=== PATIENT | female | born 1975 | race Caucasian/White ===

== ENCOUNTER 2022-06-21 11:06 | Outpatient (REF) | payer OTHER, SELFPAY ==
--- NOTE | ~2022-06-21 | XR_ITS ---
EXAMINATION: CERVICAL SPINE, RIGHT FOOT, LEFT SHOULDER, AND RIGHT SHOULDER CLINICAL INFORMATION: Osteoarthritis and pain. COMPARISON: None. TECHNIQUE: Three-view right foot, 4 view of each shoulder, and 8 view cervical spine. FINDINGS: RIGHT FOOT: There is no evidence of acute fracture or dislocation of the right foot. Joint spaces are maintained. There is mild sclerosis and spurring seen without joint space narrowing involving the 1st metatarsophalangeal joint. There is a prominent plantar calcaneal spur and small Achilles spur. LEFT SHOULDER: There is no evidence of acute fracture or dislocation of the left shoulder. Glenohumeral joint appears unremarkable. There is mild degenerative change of the acromioclavicular joint. No widening of the coracoclavicular space is seen. Bone island is noted within the left humeral head. RIGHT SHOULDER: There is no evidence of acute fracture or dislocation of the right shoulder. No calcific tendinitis. Glenohumeral joint appears unremarkable. No widening of the coracoclavicular space. There is mild spurring about the acromioclavicular joint. CERVICAL SPINE: The bony texture and alignment of the cervical spine is satisfactory. No abnormal prevertebral soft tissue swelling is seen. No instability on flexion-extension views is noted. Disc spaces are maintained. Bony neural foramina unremarkable. On lateral view a linear metallic density is seen overlying the nose. XR/XR foot RT min 3V IMPRESSION: No significant bony abnormality identified of the right foot, left shoulder, right shoulder or cervical spine.
--- NOTE | ~2022-06-21 | XR_ITS ---
EXAMINATION: CERVICAL SPINE, RIGHT FOOT, LEFT SHOULDER, AND RIGHT SHOULDER CLINICAL INFORMATION: Osteoarthritis and pain. COMPARISON: None. TECHNIQUE: Three-view right foot, 4 view of each shoulder, and 8 view cervical spine. FINDINGS: RIGHT FOOT: There is no evidence of acute fracture or dislocation of the right foot. Joint spaces are maintained. There is mild sclerosis and spurring seen without joint space narrowing involving the 1st metatarsophalangeal joint. There is a prominent plantar calcaneal spur and small Achilles spur. LEFT SHOULDER: There is no evidence of acute fracture or dislocation of the left shoulder. Glenohumeral joint appears unremarkable. There is mild degenerative change of the acromioclavicular joint. No widening of the coracoclavicular space is seen. Bone island is noted within the left humeral head. RIGHT SHOULDER: There is no evidence of acute fracture or dislocation of the right shoulder. No calcific tendinitis. Glenohumeral joint appears unremarkable. No widening of the coracoclavicular space. There is mild spurring about the acromioclavicular joint. CERVICAL SPINE: The bony texture and alignment of the cervical spine is satisfactory. No abnormal prevertebral soft tissue swelling is seen. No instability on flexion-extension views is noted. Disc spaces are maintained. Bony neural foramina unremarkable. On lateral view a linear metallic density is seen overlying the nose. XR/XR shoulder LT min 2V IMPRESSION: No significant bony abnormality identified of the right foot, left shoulder, right shoulder or cervical spine.
--- NOTE | ~2022-06-21 | XR_ITS ---
EXAMINATION: CERVICAL SPINE, RIGHT FOOT, LEFT SHOULDER, AND RIGHT SHOULDER CLINICAL INFORMATION: Osteoarthritis and pain. COMPARISON: None. TECHNIQUE: Three-view right foot, 4 view of each shoulder, and 8 view cervical spine. FINDINGS: RIGHT FOOT: There is no evidence of acute fracture or dislocation of the right foot. Joint spaces are maintained. There is mild sclerosis and spurring seen without joint space narrowing involving the 1st metatarsophalangeal joint. There is a prominent plantar calcaneal spur and small Achilles spur. LEFT SHOULDER: There is no evidence of acute fracture or dislocation of the left shoulder. Glenohumeral joint appears unremarkable. There is mild degenerative change of the acromioclavicular joint. No widening of the coracoclavicular space is seen. Bone island is noted within the left humeral head. RIGHT SHOULDER: There is no evidence of acute fracture or dislocation of the right shoulder. No calcific tendinitis. Glenohumeral joint appears unremarkable. No widening of the coracoclavicular space. There is mild spurring about the acromioclavicular joint. CERVICAL SPINE: The bony texture and alignment of the cervical spine is satisfactory. No abnormal prevertebral soft tissue swelling is seen. No instability on flexion-extension views is noted. Disc spaces are maintained. Bony neural foramina unremarkable. On lateral view a linear metallic density is seen overlying the nose. XR/XR shoulder RT min 2V IMPRESSION: No significant bony abnormality identified of the right foot, left shoulder, right shoulder or cervical spine.
--- NOTE | ~2022-06-21 | XR_ITS ---
EXAMINATION: CERVICAL SPINE, RIGHT FOOT, LEFT SHOULDER, AND RIGHT SHOULDER CLINICAL INFORMATION: Osteoarthritis and pain. COMPARISON: None. TECHNIQUE: Three-view right foot, 4 view of each shoulder, and 8 view cervical spine. FINDINGS: RIGHT FOOT: There is no evidence of acute fracture or dislocation of the right foot. Joint spaces are maintained. There is mild sclerosis and spurring seen without joint space narrowing involving the 1st metatarsophalangeal joint. There is a prominent plantar calcaneal spur and small Achilles spur. LEFT SHOULDER: There is no evidence of acute fracture or dislocation of the left shoulder. Glenohumeral joint appears unremarkable. There is mild degenerative change of the acromioclavicular joint. No widening of the coracoclavicular space is seen. Bone island is noted within the left humeral head. RIGHT SHOULDER: There is no evidence of acute fracture or dislocation of the right shoulder. No calcific tendinitis. Glenohumeral joint appears unremarkable. No widening of the coracoclavicular space. There is mild spurring about the acromioclavicular joint. CERVICAL SPINE: The bony texture and alignment of the cervical spine is satisfactory. No abnormal prevertebral soft tissue swelling is seen. No instability on flexion-extension views is noted. Disc spaces are maintained. Bony neural foramina unremarkable. On lateral view a linear metallic density is seen overlying the nose. XR/XR cervical spine min 6V IMPRESSION: No significant bony abnormality identified of the right foot, left shoulder, right shoulder or cervical spine.
[2022-06-21 11:42] LABS: MANUAL DIFF FLAG NO
[2022-06-21 11:55] LABS: Basophils Absolute Auto 0.1 X10*3/uL (0.0-0.2); Basophils Percent Auto 0.9 % (0-2); Eosinophils Absolute Auto 0.1 X10*3/uL (0.0-0.4); Eosinophils Percent Auto 1.1 % (0-4); Hematocrit 42.1 % (37.0-47.0); Hemoglobin 14.3 g/dl (12.0-16.0); Imm Gran Abs Auto 0.03 X10*3/uL (0.00-0.03); Imm Gran Pct Auto 0.3 % (0.0-0.4); Lymphocytes Percent Auto 20.9 % (20-40); Mean Corpuscular Hemoglobin 28.4 pg (27.0-33.0); Mean Corpuscular Volume 83.7 fL (80.0-98.0); Mean Platelet Volume 10.6 fL (9.4-12.3); Monocytes Absolute Auto 0.6 X10*3/uL (0.1-1.2); Monocytes Percent Auto 6.2 % (2-11); Neutrophils Absolute Auto 6.7 x10*3/uL (2.0-8.3); Neutrophils Percent Auto 70.6 % (45-73); Platelet Count 312 X10*3/uL (160-400); Red Blood Count 5.03 X10*6/uL (4.20-5.50); Red Cell Distribution Width 12.7 % (11.0-16.0); White Blood Count 9.5 X10*3/uL (4.8-10.8)
[2022-06-21 12:05] LABS: Appearance Urine Clear; Color Urine Yellow; Glucose Urine UA Negative (Negative); Leukocyte Esterase Urine Negative (Negative); Nitrite Urine Negative (Negative); PH 6.5 (5.0-9.0); Urine Blood Negative (Negative); Urine Ketones Negative (Negative); Urine Protein Negative (Neg-Trace)
[2022-06-21 12:06] LABS: Estimated Average Glucose 103 mg/dL; Hemoglobin A1c % 5.2 %
[2022-06-21 12:07] LABS: Bacteria Urine None Seen (None Seen); Hyaline Casts Urine 0-2 /LPF (0-2); Squamous Epithelial Cell Urine 0-2 /HPF (0-2); WBC Urine 0-5 /HPF (0-5)
[2022-06-21 12:24] LABS: Alanine Aminotransferase 32 U/L (0-31); Albumin Level 4.4 g/dL (3.5-5.0); Alkaline Phosphatase 70 U/L (39-117); Anion Gap 15 (12-20); Aspartate Amino Transferase 20 U/L (5-31); Bilirubin Total 0.7 mg/dL (0.0-1.0); Blood Urea Nitrogen 7 mg/dL (9-16); C Reactive Protein 0.71 mg/dL (< or = 0.50); Calcium 9.2 mg/dL (8.4-10.2); Carbon Dioxide 24 mmol/L (22-29); Chloride 105 mmol/L (96-108); Estimated Glomerular Filt Rate > 60; Glucose Random 100 mg/dL (60-115); Lactate Dehydrogenase 212 U/L (122-220); Potassium 4.1 mmol/L (3.3-5.1); Sodium 140 mmol/L (135-145); Uric Acid 4.9 mg/dL (2.4-5.7)
[2022-06-21 12:33] LABS: Rheumatoid Factor < 15.0 IU/mL (<15.0)
[2022-06-21 12:39] LABS: Erythrocyte Sedimentation Rate 9 MM/HR (0-20)
[2022-06-21 12:48] LABS: HBS Num1 1.32 mIU/mL (0-7.99); HBc Num1 0.08 S/CO (0.00-0.79); HIV AB/AG Nonreactive (Nonreactive); Hepatitis A Antibody IgM 0.16 Index (0-0.79); Hepatitis B Core Antibody Nonreactive (Nonreactive); Hepatitis B Surface Antigen Negative (Negative); ~Hepatitis A Antibody IgM Nonreactive (Nonreactive); ~Hepatitis B Surface Antibody NONREACTIVE (Nonreactive); ~Hepatitis C Antibody Nonreactive (Nonreactive)
[2022-06-21 12:49] LABS: Thyroid Stimulating Hormone 0.68 uIU/mL (0.32-4.0)
[2022-06-21 13:06] LABS: Protein/Creatinine Ratio, Ur 0.07 (<0.2); Total Protein Urine Random 10 mg/dL (<12)
[2022-06-24 12:57] LABS: Cyclic Citrullinated Peptide <16 UNITS
[2022-06-24 13:42] LABS: Thyroid Peroxidase Antibodies 1 IU/mL (<9)
[2022-06-24 14:51] LABS: Anti-Centromere B Antibodies <1.0 NEG AI (<1.0 NEG)
[2022-06-24 16:36] LABS: Complement C3 165 mg/dL (83-193)
[2022-06-25 01:57] LABS: Lyme Abs Screen <0.90 index
[2022-06-25 08:37] LABS: Thyroglobulin Antibodies <1 IU/mL (< or = 1)
[2022-06-25 12:06] LABS: Anti Nuclear Antibody Screen NEGATIVE (NEGATIVE)
[2022-06-25 13:32] LABS: Anti DNA DS Antibody 1 IU/mL; Antibody to SS-A Antigen <1.0 NEG AI (<1.0 NEG); Antibody to SS-B Antigen <1.0 NEG AI (<1.0 NEG); SM/Ribonucleoprotein Ab <1.0 NEG AI (<1.0 NEG); Scleroderma 70 Antibody <1.0 NEG AI (<1.0 NEG); Smith Protein <1.0 NEG AI (<1.0 NEG)
[2022-06-25 23:21] LABS: Prot Elec - Albumin 4.1 g/dL (3.8-4.8); Prot Elec - Alpha1 0.3 g/dL (0.2-0.3); Prot Elec - Alpha2 0.7 g/dL (0.5-0.9); Prot Elec - Beta 1 0.6 g/dL (0.4-0.6); Prot Elec - Beta 2 0.4 g/dL (0.2-0.5); Prot Elec - Gamma 0.9 g/dL (0.8-1.7); Prot Elec - Total Protein 6.9 g/dL (6.1-8.1)
[2022-06-26 13:07] LABS: IgA 324 mg/dL (47-310); IgG 777 mg/dL (600-1640); IgM 101 mg/dL (50-300)
[2022-06-26 15:48] LABS: Beta-2 Glycoprotein IgA <2.0 U/mL (<20.0); Beta-2 Glycoprotein IgG <2.0 U/mL (<20.0); Beta-2 Glycoprotein IgM 6.2 U/mL (<20.0)
[2022-06-27 05:47] LABS: Aldolase 5.9 U/L (<=8.1)
[2022-06-27 06:47] LABS: PTT (LAC) Screen 38 sec (<=40)
[2022-06-29 12:46] LABS: Cardiolipin IgG Ab <2.0 GPL-U/mL; Cardiolipin IgM Ab 5.2 MPL-U/mL
== END 2022-06-21 11:07 | disposition home or self-care (01) ==
LOC: HO.LAB 11:06
PROVIDERS: PCP Pediatrics; Visit Provider Student in an Organized Health Care Education/Training Program
DX: Z11.59 Encounter for screening for other viral diseases (principal); Z11.4 Encounter for screening for human immunodeficiency virus [HIV]; R76.8 Other specified abnormal immunological findings in serum; E88.81 Metabolic syndrome and other insulin resistance; M54.2 Cervicalgia; M19.90 Unspecified osteoarthritis, unspecified site; M25.511 Pain in right shoulder; M25.512 Pain in left shoulder; M79.671 Pain in right foot
CPT/HCPCS: 36415; 72052; 73030; 73630; 80053; 81001; 82085; 82550; 82784; 83036; 83615; 84156; 84165; 84443; 84550; 85025; 85597; 85613; 85652; 85730; 86038; 86039; 86140; 86146; 86147; 86160; 86200; 86225; 86235; 86334; 86376; 86431; 86617; 86618; 86704; 86706; 86709; 86800; 86803; 87340; 87389

== ENCOUNTER 2022-07-24 10:56 | Outpatient (REF) | payer OTHER, SELFPAY ==
[2022-07-27 00:36] LABS: TS Negative Control Passed; TS Panel A 0; TS Panel B 0; TS Positive Control Passed; TSpotTB Negative (Negative)
== END 2022-07-24 10:57 | disposition home or self-care (01) ==
LOC: HO.10HDL 10:56
PROVIDERS: Visit Provider Student in an Organized Health Care Education/Training Program
DX: Z11.7 Encounter for testing for latent tuberculosis infection (principal)
CPT/HCPCS: 36415; 86481

== ENCOUNTER 2022-07-25 11:08 | Outpatient (REF) | payer OTHER, SELFPAY ==
--- NOTE | ~2022-07-25 | XR_ITS ---
EXAMINATION: BILATERAL HAND AND WRIST X-RAYS CLINICAL INFORMATION: Rheumatoid arthritis COMPARISON: None TECHNIQUE: 4 views of both hands and wrists FINDINGS: Left: Bone alignment is normal. No fracture or dislocation. Sclerotic density in the scaphoid bone probably representing a bone island. Normal joint spaces. Normal soft tissues. Right: Bone alignment is normal. No fracture or dislocation. Normal joint spaces. Normal soft tissues. XR/XR hand wrist RT IMPRESSION: No evidence of arthritis. Probable bone island in the left scaphoid bone.
--- NOTE | ~2022-07-25 | XR_ITS ---
EXAMINATION: BILATERAL KNEE X-RAY CLINICAL INFORMATION: Rheumatoid arthritis COMPARISON: None TECHNIQUE: 4 views of each knee FINDINGS: Right: Bone alignment is normal. No fracture or dislocation. Normal joint spaces. No joint effusion. Left: Bone alignment is normal. No fracture or dislocation. Cortical thickening and increased sclerosis of the tibial tibial tuberosity at the patellar tendon insertion probably related to old [place]-Schlatter's disease. Normal joint spaces. No joint effusion. XR/XR knee standing BI IMPRESSION: Normal right knee. Probable old [place]-Schlatter's disease of the left knee.
--- NOTE | ~2022-07-25 | XR_ITS ---
EXAMINATION: BILATERAL HAND AND WRIST X-RAYS CLINICAL INFORMATION: Rheumatoid arthritis COMPARISON: None TECHNIQUE: 4 views of both hands and wrists FINDINGS: Left: Bone alignment is normal. No fracture or dislocation. Sclerotic density in the scaphoid bone probably representing a bone island. Normal joint spaces. Normal soft tissues. Right: Bone alignment is normal. No fracture or dislocation. Normal joint spaces. Normal soft tissues. XR/XR hand wrist LT IMPRESSION: No evidence of arthritis. Probable bone island in the left scaphoid bone.
--- NOTE | ~2022-07-25 | XR_ITS ---
EXAMINATION: BILATERAL KNEE X-RAY CLINICAL INFORMATION: Rheumatoid arthritis COMPARISON: None TECHNIQUE: 4 views of each knee FINDINGS: Right: Bone alignment is normal. No fracture or dislocation. Normal joint spaces. No joint effusion. Left: Bone alignment is normal. No fracture or dislocation. Cortical thickening and increased sclerosis of the tibial tibial tuberosity at the patellar tendon insertion probably related to old [place]-Schlatter's disease. Normal joint spaces. No joint effusion. XR/XR knee RT 3V IMPRESSION: Normal right knee. Probable old [place]-Schlatter's disease of the left knee.
--- NOTE | ~2022-07-25 | XR_ITS ---
EXAMINATION: BILATERAL KNEE X-RAY CLINICAL INFORMATION: Rheumatoid arthritis COMPARISON: None TECHNIQUE: 4 views of each knee FINDINGS: Right: Bone alignment is normal. No fracture or dislocation. Normal joint spaces. No joint effusion. Left: Bone alignment is normal. No fracture or dislocation. Cortical thickening and increased sclerosis of the tibial tibial tuberosity at the patellar tendon insertion probably related to old [place]-Schlatter's disease. Normal joint spaces. No joint effusion. XR/XR knee LT 3V IMPRESSION: Normal right knee. Probable old [place]-Schlatter's disease of the left knee.
== END 2022-07-25 11:09 | disposition home or self-care (01) ==
LOC: HO.XRAY 11:08
PROVIDERS: PCP Pediatrics; Visit Provider Student in an Organized Health Care Education/Training Program
DX: M06.9 Rheumatoid arthritis, unspecified (principal)
CPT/HCPCS: 73110; 73130; 73562; 73564; 73565

== ENCOUNTER → 2022-09-06 09:30 | Outpatient (BNVA) | payer OTHER, SELFPAY | PROVIDERS: PCP Pediatrics; Visit Provider Internal Medicine | DX: M50.30 Other cervical disc degeneration, unspecified cervical region (principal); M19.90 Unspecified osteoarthritis, unspecified site ==

== ENCOUNTER → 2022-09-10 14:49 | Outpatient (BNVA) | payer OTHER, SELFPAY | PROVIDERS: PCP Pediatrics; Visit Provider Student in an Organized Health Care Education/Training Program | DX: Z13.89 Encounter for screening for other disorder (principal) ==

== ENCOUNTER 2022-11-22 10:00 | Outpatient (RCR) | payer OTHER, SELFPAY ==
[2022-10-07 10:01] VITALS: BP 135/75; PULSE 90
--- NOTE | 2022-10-07 16:20 | MHC.PT.EP ---
[facility] [place] [facility] [place] [facility] [place] [facility] [address] Xochilt Wright [address] [phone] F: [phone] F: [phone] F: [phone] F: [phone] Physical Therapy Plan of Care Date of Evaluation: Date of Surgery: Diagnosis: Cervical disc degeneration. Assessment: Pt is a 47 y/o LHD female with RA referred to PT for eval and treat of cervical disc degeneration resulting in decreased tolerance for driving, reading, turning and extending her head, as well as disturbed sleep secondary to DDD process, decreased cervical ROM and strength, L shoulder pain, decreased posture, increased cervical accessory tissue tension, and pain. Pt is deemed an appropriate candidate to receive skilled PT services to address their physical impairments in order to improve their functional ability. Frequency and Duration: The patient will be seen 2 x / wk x 5 wks. Short Term Goals: Initiate HEP. Improve baseline pain to < 5/10; initial: 6/10. Humane Agent Goals: I with home program. Pt will report only slight neck pain while driving; initial: moderate pain. Pt will report < 1 hour of disturbed sleep d/t cervical pain; initial: 2-3 hours disturbed. Pt will report at most JACKSON which are slight and infrequent. Treatment Plan: Modalities to reduce pain, spasms and effusion. Manual therapy to restore motion and function. Therapeutic exercise to improve strength and flexibility. Neuromuscular re-education for posture and balance. Therapeutic activities to return to functional activities of daily living. Electronically signed by: Jose Red PT. Please sign and return to therapist. Thank you for your referral.
--- NOTE | 2022-12-16 08:42 | MHC.PT.DC ---
[facility] [place] [facility] [place] [facility] [place] [facility] [address] Xochilt Wright [address] [facility] [phone] F: [phone] F: [phone] F: [phone] F: [phone] Physical Therapy Discharge Report Diagnosis: Cervical disc degeneration. Date of Surgery: Date of Evaluation: 10/07/22 Date of Discharge: 12/16/22 Treatments to Date: 4 Cancellations to Date: 7 No Shows to Date: 3 Discharge Status: Visit Non-compliance Discharge Summary: Electronically signed by: Jose Red PT. Please sign and return to therapist. Thank you for your referral.
== END 2022-12-16 08:43 | disposition home or self-care (01) ==
LOC: HO.PTCHIC 10:00
PROVIDERS: PCP Pediatrics; Visit Provider Internal Medicine
DX: M50.30 Other cervical disc degeneration, unspecified cervical region (principal)
CPT/HCPCS: 97110; 97140; 97161

== ENCOUNTER 2023-04-16 09:56 | Outpatient (AMB) | payer OTHER, SELFPAY ==
--- NOTE | 2023-04-16 09:58 | A.OFFVIS_ITS ---
Intake Vital Signs 04/16/23 09:59 Height 5 ft 7 in Weight 273 lb 13.026 oz BMI 42.9 BP 118/70 Blood Pressure Location Lt brachial Position Sitting Pulse 91 Pulse Source Pulse Oximeter Temp 98.1 F Temp Source Skin Pulse Oximetry (%) 98 Intake Visit Reasons: hand OA Intake Note: * Pt seen today for OA follow up. * States her left hand and lower back have gotten worse. 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 She states that she continues to have pain in both hands, worse on the left as well as both feet, worse on the left and right shoulder. She has morning stiffness of her hands lasting 30 minutes. Also mentions that her fingers are swollen for about 30 minutes in the morning. Grabbing objects. She takes Advil around 800 mg a day total which provides mild to moderate relief. Denies any skin rashes. Initial history: This is a 46-year-old female with a past medical history of morbid obesity, PCOS, hidradenitis suppurativa, MARIBEL presents for evaluation of multiple joint pains. The condition started in early April of 2021 with relatively abrupt onset of bilateral for head pain, neck pain, bilateral shoulder pain and bilateral pain in her hands and morning stiffness lasting at least 1 hour causing difficultly with her dexterity. She took prednisone unknown dose for a few days by her PCP without any relief. Due to the persistence and severity of symptoms she went to the ER and had a CT head done which was negative. She followed up with her PCP who is ordering an MRI of her brain for further evaluation due to chronic headache. She continues to have pain in her neck radiating to her shoulders and hands. Patient has been taking Tylenol and NSAIDs for about 2 months without relief, prednisone did not provide any significant relief. She has bilateral hand numbness associated with pallor of her fingertips not associated with cold exposure. She had tried losing bladder or bowel control. She lost about 20 lb over the last 2 3 months unintentionally. She has a couple of cousins with multiple sclerosis [facility] Medical History Allergic rhinitis Cervical radiculopathy Dysphagia Encounter for testing for latent tuberculosis infection GERD (gastroesophageal reflux disease) Headache Hidradenitis suppurativa Obstructive sleep apnea PCOS (polycystic ovarian syndrome) Screening for viral disease Severe obesity Thyroid nodule Surgical History H/O ventral hernia repair Hx of section Hx of cholecystectomy Hx of knee surgery Family History Mother Hyperlipidemia Hypertension Arthritis Father Hyperlipidemia Hypertension Leukemia Cancer of kidney Arthritis Paternal Grandfather Coronary artery disease Maternal Grandfather Type 2 diabetes mellitus Paternal Grandmother Breast cancer Colon cancer Paternal Aunt Breast cancer Social History Household Members: Significant Other and Children Alcohol intake: current Alcohol intake frequency: does not drink Patient Tobacco Use Status: Never used Tobacco Current occupational status: unemployed 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 Review of [place] [facility] [place] arthralgias, Reports joint swelling and Reports stiffness Physical Exam Vital Signs: Last Vital Signs Temp 98.1 F 04/16/23 09:59 Pulse 91 04/16/23 09:59 BP 118/70 04/16/23 09:59 Pulse Ox 98 04/16/23 09:59 BMI result Body Mass Index 42.9 Const General: cooperative, healthy appearing and comfortable Nutritional Appearance: obese morbidly obese Orientation/consciousness: patient oriented x3 Limitations: no limitations HEENT Head: Yes normocephalic and Yes atraumatic Mouth: Normal oral and palatal mucosa present Resp Effort & Inspection: normal respiratory effort and able to speak in complete sentences Skin General skin exam: no rashes or lesions noted Neuro General: patient oriented x3 Extrem Other: Normal nailfold capillaroscopy Right hand: tender wrist, pain with full flexion and extension of her wrist, right 5th MCP mild swelling and tenderness , mild tenderness of her PIPs. Positive MCP squeeze test Left hand : Tender wrist, pain with flexion and extension of her wrist. Tenderness to palpation of her 4th and 5th MCPs and PIP. Positive MCP squeeze test Bilateral elbow pain with full extension Left 3rd and 4th MTP tenderness and positive MCP squeeze test Right 2nd 3rd and 4th MTP tenderness and positive MTP squeeze test Normal nailfold capillaroscopy Results Reviewed Results Reviewed: left hand MRI 08/2022 Impression: Normal hand MRI. No findings to suggest inflammatory arthropathy Seronegative RA panel 08/2022 Anti-CEP1 50 (moderate positive) Anti Sa negative Anti carbamylated P 28 (<20) 14-3-3 negative Assessment & Plan Assessment & Plan (1) Inflammatory arthritis: Code(s): M19.90 - Unspecified osteoarthritis, unspecified site Plan: This is a 47-year-old female who was initially referred for a positive LDUY .? Upon evaluation patient has multiple small tender joints consistent with an inflammatory arthritis pain. Sub serologies are negative except for positive anti Cep-1 and anti carbamylated-P.? Left hand MRI 08/2023 showed no signs of inflammatory arthritis.? Patient returns for follow-up and continues to have the same symptoms. She takes around 800 mg a day of ibuprofen to help her symptoms. Suspicion for inflammatory arthritis remains. Will repeat left hand MRI. Advised patient not to take any NSAIDs 2 weeks before the scan. Can take Tylenol Follow-up in 2 months Plan I spent 26 minutes reviewing patient's chart, evaluating patient, ordering diagnostic workup, counseling patient and documenting in the chart Orders: Orders Comprehensive Met. Panel Today M19.90 - Unspecified osteoarthritis, unspecified site C Reactive Protein Today M19.90 - Unspecified osteoarthritis, unspecified site Complete Blood Count Auto Diff Today M19.90 - Unspecified osteoarthritis, unspecified site Erythrocyte Sedimentation Rate Today M19.90 - Unspecified osteoarthritis, unspecified site Immunofixation Pnl, Serum Today M19.90 - Unspecified osteoarthritis, unspecified site MR hand LT wo con Today M19.90 - Unspecified osteoarthritis, unspecified site Coding Level of Care Code Est Pt Level 4 (70200) Diagnoses Inflammatory arthritis M19.90
[2023-04-16 09:59] VITALS: BP 118/70; PULSE 91; TEMP 36.7; O2SAT 98; BMI 42.9
== END 2023-04-16 10:31 | disposition home or self-care (01) ==
PROVIDERS: PCP Pediatrics; Visit Provider Student in an Organized Health Care Education/Training Program
DX: M19.90 Unspecified osteoarthritis, unspecified site (principal)
CPT/HCPCS: 99214

== ENCOUNTER → 2023-04-16 09:56 | Outpatient (BNVA) | payer OTHER, SELFPAY | PROVIDERS: PCP Pediatrics; Visit Provider Student in an Organized Health Care Education/Training Program ==

== ENCOUNTER 2023-04-16 10:41 | Outpatient (REF) | payer OTHER, SELFPAY ==
[2023-04-16 13:30] LABS: MANUAL DIFF FLAG NO
[2023-04-16 13:39] LABS: Basophils Absolute Auto 0.1 X10*3/uL (0.0-0.2); Basophils Percent Auto 0.9 % (0-2); Eosinophils Absolute Auto 0.1 X10*3/uL (0.0-0.4); Eosinophils Percent Auto 1.6 % (0-4); Hematocrit 43.6 % (37.0-47.0); Hemoglobin 14.5 g/dl (12.0-16.0); Imm Gran Abs Auto 0.03 X10*3/uL (0.00-0.03); Imm Gran Pct Auto 0.4 % (0.0-0.4); Lymphocytes Absolute Auto 1.9 X10*3/uL (1.2-4.9); Lymphocytes Percent Auto 25.2 % (20-40); Mean Corpuscular HGB Conc 33.3 g/dl (31.0-35.0); Mean Corpuscular Hemoglobin 28.3 pg (27.0-33.0); Mean Corpuscular Volume 85.2 fL (80.0-98.0); Mean Platelet Volume 11.3 fL (9.4-12.3); Monocytes Absolute Auto 0.5 X10*3/uL (0.1-1.2); Monocytes Percent Auto 6.5 % (2-11); Neutrophils Absolute Auto 4.8 x10*3/uL (2.0-8.3); Neutrophils Percent Auto 65.4 % (45-73); Platelet Count 334 X10*3/uL (160-400); Red Blood Count 5.12 X10*6/uL (4.20-5.50); Red Cell Distribution Width 12.6 % (11.0-16.0); White Blood Count 7.4 X10*3/uL (4.8-10.8)
[2023-04-16 13:53] LABS: Alanine Aminotransferase 17 U/L (0-31); Albumin Level 4.2 g/dL (3.5-5.0); Alkaline Phosphatase 69 U/L (39-117); Anion Gap 12 (12-20); Aspartate Amino Transferase 13 U/L (5-31); Bilirubin Total 0.7 mg/dL (0.0-1.0); Blood Urea Nitrogen 12 mg/dL (9-16); C Reactive Protein 0.65 mg/dL (< or = 0.50); Calcium 9.4 mg/dL (8.4-10.2); Carbon Dioxide 26 mmol/L (22-29); Chloride 106 mmol/L (96-108); Estimated Glomerular Filt Rate > 60; Glucose Random 98 mg/dL (60-115); Potassium 4.1 mmol/L (3.3-5.1); Sodium 140 mmol/L (135-145); Total Protein 7.1 g/dL (6.5-8.0)
[2023-04-16 14:19] LABS: Erythrocyte Sedimentation Rate 7 MM/HR (0-20)
[2023-04-21 09:18] LABS: IgA 335 mg/dL (47-310); IgG 884 mg/dL (600-1640); IgM 102 mg/dL (50-300)
== END 2023-04-16 10:42 | disposition home or self-care (01) ==
LOC: HO.10HDL 10:41
PROVIDERS: Visit Provider Student in an Organized Health Care Education/Training Program
DX: M19.90 Unspecified osteoarthritis, unspecified site (principal); Z20.2 Contact with and (suspected) exposure to infections with a predominantly sexual mode of transmission
CPT/HCPCS: 36415; 80053; 82784; 85025; 85652; 86140; 86334

== ENCOUNTER 2023-06-12 10:41 | Outpatient (AMB) | payer OTHER, SELFPAY ==
--- NOTE | 2023-06-12 10:44 | MHC.OFFVIS ---
Intake Vital Signs 06/12/23 10:45 Height 5 ft 7 in Weight 279 lb 8.738 oz BMI 43.8 BP 126/82 Blood Pressure Location Rt brachial Position Sitting Pulse 84 Pulse Source Pulse Oximeter Temp 98.1 F Temp Source Skin Pulse Oximetry (%) 98 Intake Visit Reasons: IA Intake Note: Pt seen today for IA follow up. Reports increase in joint pain. Acquisition Analyst Required: No Accompanied by: Self / Same As Patient Allergies sulfadiazine Adverse Reaction (Intermediate, Verified 04/16/23 10:00) Anaphylaxis Medication List - Last Reconciled 06/12/23 by Laura Brewer MD folic acid 1 mg PO DAILY hydroxyzine HCl 25 mg PO TID PRN methotrexate sodium Take 6 tabs by mouth once weekly for 2 weeks then 8 tabs once weekly sertraline 50 mg PO DAILY HPI HPI Comments History of Present Illness Details Patient returns for follow-up. Her hand MRI was denied by insurance. She continues to have pain in her hands, fingers, elbows, shoulders, hips, left foot, neck, lower back. She has morning stiffness of joints lasting 6 hours. She states that she gets swelling of her fingers in the morning that can last a few hours. States that her rings get tight. She states that ibuprofen provides minimal relief. Initial history: This is a 46-year-old female with a past medical history of morbid obesity, PCOS, hidradenitis suppurativa, MARIBEL presents for evaluation of multiple joint pains. The condition started in early April of 2021 with relatively abrupt onset of bilateral for head pain, neck pain, bilateral shoulder pain and bilateral pain in her hands and morning stiffness lasting at least 1 hour causing difficultly with her dexterity. She took prednisone unknown dose for a few days by her PCP without any relief. Due to the persistence and severity of symptoms she went to the ER and had a CT head done which was negative. She followed up with her PCP who is ordering an MRI of her brain for further evaluation due to chronic headache. She continues to have pain in her neck radiating to her shoulders and hands. Patient has been taking Tylenol and NSAIDs for about 2 months without relief, prednisone did not provide any significant relief. She has bilateral hand numbness associated with pallor of her fingertips not associated with cold exposure. She had tried losing bladder or bowel control. She lost about 20 lb over the last 2 3 months unintentionally. She has a couple of cousins with multiple sclerosis COUNTS INCLUDE 234 BEDS AT THE [facility] Medical History (Updated 06/12/23 @ 11:55 by Laura Brewer MD) Cervical radiculopathy Thyroid nodule Severe obesity Hidradenitis suppurativa Obstructive sleep apnea PCOS (polycystic ovarian syndrome) Headache Dysphagia GERD (gastroesophageal reflux disease) Allergic rhinitis Surgical History H/O ventral hernia repair Hx of cholecystectomy Hx of section Hx of knee surgery Family History Mother Hyperlipidemia Hypertension Arthritis Father Hyperlipidemia Hypertension Leukemia Cancer of kidney Arthritis Paternal Grandfather Coronary artery disease Maternal Grandfather Type 2 diabetes mellitus Paternal Grandmother Breast cancer Colon cancer Paternal Aunt Breast cancer Social History Household Members: Significant Other and Children Alcohol intake: current Alcohol intake frequency: does not drink Patient Tobacco Use Status: Never used Tobacco Current occupational status: unemployed 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 Female Reproductive History Menstrual Total pregnancies: 6 (12 rounds of IVF) Number of Living Children: 1 Ab spontaneous: 5 Review of Systems ENT Reports neck pain Musc Reports arthralgias, Reports joint swelling, Reports neck pain and Reports stiffness Physical Exam Vital Signs: Last Vital Signs Temp 98.1 F 06/12/23 10:45 Pulse 84 06/12/23 10:45 BP 126/82 06/12/23 10:45 Pulse Ox 98 06/12/23 10:45 BMI result Body Mass Index 43.8 Const General: cooperative and healthy appearing Nutritional Appearance: obese morbidly obese Orientation/consciousness: patient oriented x3 Limitations: no limitations HEENT Head: Yes normocephalic and Yes atraumatic Mouth: Normal oral and palatal mucosa present Resp Effort & Inspection: normal respiratory effort and able to speak in complete sentences Auscultation: clear to auscultation bilaterally Cardio Rate: regular rate Rhythm: regular rhythm Skin General skin exam: no rashes or lesions noted Neuro General: patient oriented x3 Extrem Other: Normal nailfold capillaroscopy Right hand: tender wrist, pain with full flexion and extension of her wrist, right 4th and 5th MCP tenderness without significant swelling, mild tenderness of her PIPs. Positive MCP squeeze test Left hand : Tender wrist, pain with flexion and extension of her wrist. Tenderness to palpation of her 3rd MCP and 3rd and 4th PIP is. Positive MCP squeeze test Positive Tinel sign with electric shock sensation going to her left thumb No DIP tenderness bilaterally Bilateral elbow pain with full extension Bilateral shoulder pain with passive abduction Left 2nd, 3rd and 4th MTP tenderness and positive MTP squeeze test No MTP tenderness on the right, negative MTP squeeze test Normal nailfold capillaroscopy Results Reviewed Results Reviewed: left hand MRI 08/2022 Impression: Normal hand MRI. No findings to suggest inflammatory arthropathy Seronegative RA panel 08/2022 Anti-CEP1 50 (moderate positive) Anti Sa negative Anti carbamylated P 28 (<20) 14-3-3 negative Assessment & Plan Assessment & Plan (1) Rheumatoid arthritis: Code(s): M06.9 - Rheumatoid arthritis, unspecified Qualifiers: Rheumatoid arthritis location: multiple sites Rheumatoid factor presence: without rheumatoid factor Qualified Code(s): M06.09 - Rheumatoid arthritis without rheumatoid factor, multiple sites Plan: This is a 47-year-old female who was initially referred for a positive LUDY .? Upon evaluation patient has multiple small tender joints consistent with an inflammatory arthritis pain. Mentions daily morning stiffness and swelling of her small joints. serologies are negative except for positive anti Cep-1 and anti carbamylated-P.? Left hand MRI 08/2023 showed no signs of inflammatory arthritis.? Patient did not respond to Medrol taper, by ibuprofen provides minimal relief. Will need to start DMARDs for seronegative RA. Discussed risks and benefits of methotrexate. 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 Will monitor patient for side effects with frequent lab work. Advised patient to take folic acid daily to prevent complications of methotrexate. Patient rarely drinks alcohol. Discussed teratogenic effects of methotrexate on fetus. She has PCOS and got 6 times after 12 rounds of IVF and has 1 child. She uses condoms regularly with her . Plan I spent 26 minutes reviewing patient's chart, evaluating patient, ordering diagnostic workup, counseling patient and documenting in the chart Orders: Orders Erythrocyte Sedimentation Rate 2 Months M06.9 - Rheumatoid arthritis, unspecified T Spot TB 2 Months Z11.7 - Encounter for testing for latent tuberculosis infection Complete Blood Count Auto Diff 2 Months M06.9 - Rheumatoid arthritis, unspecified Comprehensive Met. Panel 2 Months M06.9 - Rheumatoid arthritis, unspecified C Reactive Protein 2 Months M06.9 - Rheumatoid arthritis, unspecified Hepatitis A,B,C Profile 2 Months Z11.59 - Encounter for screening for other viral diseases Medications: New folic acid 1 mg PO DAILY 90 tabs 1RF methotrexate sodium Take 6 tabs by mouth once weekly for 2 weeks then 8 tabs once weekly 64 tabs 0RF Coding Level of Care Code Est Pt Level 4 (98719) Diagnoses Rheumatoid arthritis of multiple sites with negative rheumatoid factor M06.09 Rheumatoid arthritis location: multiple sites Rheumatoid factor presence: without rheumatoid factor nursing home methotrexate user Z79.631
[2023-06-12 10:45] VITALS: BP 126/82; PULSE 84; TEMP 36.7; O2SAT 98; BMI 43.8
== END 2023-06-12 11:21 | disposition home or self-care (01) ==
PROVIDERS: PCP Pediatrics; Visit Provider Student in an Organized Health Care Education/Training Program
DX: M06.09 Rheumatoid arthritis without rheumatoid factor, multiple sites (principal); Z79.631 Long term (current) use of antimetabolite agent
CPT/HCPCS: 99214

== ENCOUNTER → 2023-06-12 10:41 | Outpatient (BNVA) | payer OTHER, SELFPAY | PROVIDERS: PCP Pediatrics; Visit Provider Student in an Organized Health Care Education/Training Program ==

== ENCOUNTER 2023-08-06 09:02 | Outpatient (REF) | payer OTHER, SELFPAY ==
[2023-08-06 11:28] LABS: MANUAL DIFF FLAG NO
[2023-08-06 11:37] LABS: Basophils Absolute Auto 0.1 X10*3/uL (0.0-0.2); Basophils Percent Auto 0.9 % (0-2); Eosinophils Absolute Auto 0.1 X10*3/uL (0.0-0.4); Eosinophils Percent Auto 1.8 % (0-4); Hematocrit 42.3 % (37.0-47.0); Hemoglobin 14.1 g/dl (12.0-16.0); Imm Gran Abs Auto 0.02 X10*3/uL (0.00-0.03); Imm Gran Pct Auto 0.3 % (0.0-0.4); Lymphocytes Absolute Auto 1.9 X10*3/uL (1.2-4.9); Lymphocytes Percent Auto 27.3 % (20-40); Mean Corpuscular HGB Conc 33.3 g/dl (31.0-35.0); Mean Corpuscular Hemoglobin 29.1 pg (27.0-33.0); Mean Corpuscular Volume 87.2 fL (80.0-98.0); Mean Platelet Volume 11.7 fL (9.4-12.3); Monocytes Absolute Auto 0.3 X10*3/uL (0.1-1.2); Monocytes Percent Auto 4.4 % (2-11); Neutrophils Absolute Auto 4.5 x10*3/uL (2.0-8.3); Neutrophils Percent Auto 65.3 % (45-73); Platelet Count 296 X10*3/uL (160-400); Red Blood Count 4.85 X10*6/uL (4.20-5.50); Red Cell Distribution Width 13.7 % (11.0-16.0); White Blood Count 6.8 X10*3/uL (4.8-10.8)
[2023-08-06 11:59] LABS: Alanine Aminotransferase 22 U/L (0-31); Albumin Level 4.1 g/dL (3.5-5.0); Alkaline Phosphatase 61 U/L (39-117); Anion Gap 9 (12-20); Aspartate Amino Transferase 16 U/L (5-31); Bilirubin Total 0.9 mg/dL (0.0-1.0); Blood Urea Nitrogen 10 mg/dL (9-16); C Reactive Protein 0.51 mg/dL (< or = 0.50); Carbon Dioxide 24 mmol/L (22-29); Chloride 109 mmol/L (96-108); Estimated Glomerular Filt Rate > 60; Glucose Random 112 mg/dL (60-115); Potassium 3.7 mmol/L (3.3-5.1); Sodium 138 mmol/L (135-145); Total Protein 6.9 g/dL (6.5-8.0)
[2023-08-06 12:23] LABS: HBS Num1 0.32 mIU/mL (0-7.99); HBc Num1 0.09 S/CO (0.00-0.79); HBsAGNum1 0.34 S/CO (0.00-0.99); Hepatitis A Antibody IgM 0.18 Index (0-0.79); Hepatitis B Core Antibody Nonreactive (Nonreactive); Hepatitis B Surface Antigen Negative (Negative); ~HepC Num1 0.13 S/CO (0.00-0.79); ~Hepatitis A Antibody IgM Nonreactive (Nonreactive); ~Hepatitis B Surface Antibody NONREACTIVE (Nonreactive); ~Hepatitis C Antibody Nonreactive (Nonreactive)
[2023-08-06 14:48] LABS: Erythrocyte Sedimentation Rate 8 MM/HR (0-20)
[2023-08-08 21:43] LABS: TS Negative Control Passed; TS Panel A 0; TS Panel B 0; TS Positive Control Passed; TSpotTB Negative (Negative)
== END 2023-08-06 09:03 | disposition home or self-care (01) ==
LOC: HO.HMGCLDS 09:02
PROVIDERS: PCP Pediatrics; Visit Provider Student in an Organized Health Care Education/Training Program
DX: Z11.59 Encounter for screening for other viral diseases (principal); Z11.7 Encounter for testing for latent tuberculosis infection; M06.9 Rheumatoid arthritis, unspecified; Z72.89 Other problems related to lifestyle
CPT/HCPCS: 36415; 80053; 85025; 85652; 86140; 86481; 86704; 86706; 86709; 86803; 87340

== ENCOUNTER 2023-08-14 10:32 | Outpatient (AMB) | payer OTHER, SELFPAY ==
--- NOTE | 2023-08-14 10:39 | MHC.OFFVIS ---
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 Patient has been taking methotrexate for about 2 months now she feels about 50% improvement in her overall musculoskeletal complaints. States that morning stiffness of her hands is much improved. Continues to have pain in her wrists, fingers and toes but they are better than before. She did have some nausea with the 1st few doses of methotrexate but she seems to tolerated well currently except for significant fatigue the day after she takes methotrexate. Also mentioning mildly worsening hair loss. Initial history: This is a 46-year-old female with a past medical history of morbid obesity, PCOS, hidradenitis suppurativa, MARIBEL presents for evaluation of multiple joint pains. The condition started in early April of 2022 with relatively abrupt onset of bilateral for head pain, neck pain, bilateral shoulder pain and bilateral pain in her hands and morning stiffness lasting at least 1 hour causing difficultly with her dexterity. She took prednisone unknown dose for a few days by her PCP without any relief. Due to the persistence and severity of symptoms she went to the ER and had a CT head done which was negative. She followed up with her PCP who is ordering an MRI of her brain for further evaluation due to chronic headache. She continues to have pain in her neck radiating to her shoulders and hands. Patient has been taking Tylenol and NSAIDs for about 2 months without relief, prednisone did not provide any significant relief. She has bilateral hand numbness associated with pallor of her fingertips not associated with cold exposure. She had tried losing bladder or bowel control. She lost about 20 lb over the last 2 3 months unintentionally. She has a couple of cousins with multiple sclerosis [facility] Medical History Cervical radiculopathy Thyroid nodule Severe obesity Hidradenitis suppurativa Obstructive sleep apnea PCOS (polycystic ovarian syndrome) Headache Dysphagia GERD (gastroesophageal reflux disease) Allergic rhinitis Surgical History H/O ventral hernia repair Hx of cholecystectomy Hx of section Hx of knee surgery Family History Mother Hyperlipidemia Hypertension Arthritis Father Hyperlipidemia Hypertension Leukemia Cancer of kidney Arthritis Paternal Grandfather Coronary artery disease Maternal Grandfather Type 2 diabetes mellitus Paternal Grandmother Breast cancer Colon cancer Paternal Aunt Breast cancer Social History Household Members: Significant Other and Children Alcohol intake: current Alcohol intake frequency: does not drink Patient Tobacco Use Status: Never used Tobacco Current occupational status: unemployed 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 Review of Systems [facility] [place] Reports arthralgias and Reports stiffness Physical Exam Vital Signs: Last Vital Signs Temp 98.4 F 08/14/23 10:40 Pulse 83 08/14/23 10:40 BP 126/88 08/14/23 10:40 Pulse Ox 96 08/14/23 10:40 Oxygen Delivery Method Room Air 08/14/23 10:40 BMI result Body Mass Index 43.9 Const General: cooperative and healthy appearing Nutritional Appearance: obese morbidly obese Orientation/consciousness: patient oriented x3 Limitations: no limitations HEENT Head: Yes normocephalic and Yes atraumatic Mouth: Normal oral and palatal mucosa present Resp Effort & Inspection: normal respiratory effort and able to speak in complete sentences Auscultation: clear to auscultation bilaterally Cardio Rate: regular rate Rhythm: regular rhythm Skin General skin exam: no rashes or lesions noted Neuro General: patient oriented x3 Extrem Other: Normal nailfold capillaroscopy Right hand: tender wrist, pain with full flexion and extension of her wrist, right 4th and 5th MCP tenderness without significant swelling, mild tenderness of her PIPs. Positive MCP squeeze test Left hand : Tender wrist, pain with flexion and extension of her wrist. Tenderness to palpation of her 3rd MCP and 3rd and 4th PIP is. Positive MCP squeeze test Positive Tinel sign with electric shock sensation going to her left thumb No DIP tenderness bilaterally Left 2nd, 3rd \ MTP tenderness and positive MTP squeeze test No MTP tenderness on the right, negative MTP squeeze test Normal nailfold capillaroscopy Results Reviewed Results Reviewed: left hand MRI 08/2022 Impression: Normal hand MRI. No findings to suggest inflammatory arthropathy Seronegative RA panel 08/2022 Anti-CEP1 50 (moderate positive) Anti Sa negative Anti carbamylated P 28 (<20) 14-3-3 negative Assessment & Plan Assessment & Plan (1) Rheumatoid arthritis: Comment: seroneg dx 06/30 (++CEP, +cabamylated P) Prednisone ineffective MTX 06/30 effective Code(s): M06.9 - Rheumatoid arthritis, unspecified Qualifiers: Rheumatoid arthritis location: multiple sites Rheumatoid factor presence: without rheumatoid factor Qualified Code(s): M06.09 - Rheumatoid arthritis without rheumatoid factor, multiple sites Plan: This is a 47-year-old female with seronegative RA who returns for follow-up. On methotrexate 20 mg weekly and folic acid 1 mg daily. Doing much better overall. Continues to have few tender joints. Advised patient to split methotrexate in to 4 tabs twice, 12-24 hours apart. 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 Discussed teratogenic effects of methotrexate on fetus. She has PCOS and got 6 times after 12 rounds of IVF and has 1 child. She uses condoms regularly with her . (3) Immunization counseling: Code(s): Z71.85 - Encounter for immunization safety counseling Plan: Patient already received the flu vaccine for this season but not planning to get the new COVID booster Plan I spent 26 minutes reviewing patient's chart, evaluating patient, ordering diagnostic workup, counseling patient and documenting in the chart Orders: Orders Complete Blood Count Auto Diff 3 Months Z79.631 - prison (current) use of antimetabolite agent C Reactive Protein 3 Months Z79.631 - prison (current) use of antimetabolite agent Erythrocyte Sedimentation Rate 3 Months Z79.631 - buttermaker continuous churn (current) use of antimetabolite agent Comprehensive Met. Panel 3 Months Z79.631 - [employer]term[employer] continuous churn (current) use of antimetabolite agent Medications: New dextromethorphan-guaifenesin 30-600 mg 12 hours after methotrexate 1 tab PO QWEEK 4 tabs 2RF Coding Level of Care Code Est Pt Level 4 (23617) Diagnoses Rheumatoid arthritis of multiple sites with negative rheumatoid factor M06.09 Rheumatoid arthritis location: multiple sites Rheumatoid factor presence: without rheumatoid factor prison methotrexate user Z79.631 Immunization counseling Z71.85
[2023-08-14 10:40] VITALS: BP 126/88; PULSE 83; TEMP 36.9; O2SAT 96; BMI 43.9
== END 2023-08-14 11:15 | disposition home or self-care (01) ==
PROVIDERS: PCP Pediatrics; Visit Provider Student in an Organized Health Care Education/Training Program
DX: M06.09 Rheumatoid arthritis without rheumatoid factor, multiple sites (principal); Z79.631 Long term (current) use of antimetabolite agent; Z71.85 Encounter for immunization safety counseling
CPT/HCPCS: 99214

== ENCOUNTER → 2023-08-14 10:32 | Outpatient (BNVA) | payer OTHER, SELFPAY | PROVIDERS: PCP Pediatrics; Visit Provider Student in an Organized Health Care Education/Training Program ==

== ENCOUNTER 2023-09-25 12:36 | Outpatient (AMB) | payer OTHER, SELFPAY ==
[2023-09-25 12:46] VITALS: BP 128/60; PULSE 85; TEMP 36.1; O2SAT 97; BMI 44.4
--- NOTE | 2023-09-25 12:46 | A.OFFVIS_ITS ---
Intake Vital Signs 09/25/23 12:46 Height 5 ft 7 in Weight 283 lb 8.231 oz BMI 44.4 BP 128/60 Blood Pressure Location Lt radial Position Sitting Pulse 85 Pulse Source Pulse Oximeter Temp 97 F Temp Source Skin Pulse Oximetry (%) 97 Oxygen Delivery Method Room Air Intake Visit Reasons: left hand tremors Intake Note: Patient presents today for left hand tremors. Allergies sulfadiazine Adverse Reaction (Intermediate, Verified 08/14/23 10:45) Anaphylaxis PFSH Medical History Cervical radiculopathy Thyroid nodule Severe obesity Hidradenitis suppurativa Obstructive sleep apnea PCOS (polycystic ovarian syndrome) Headache Dysphagia GERD (gastroesophageal reflux disease) Allergic rhinitis Surgical History H/O ventral hernia repair Hx of cholecystectomy Hx of section Hx of knee surgery Family History Mother Hyperlipidemia Hypertension Arthritis Father Hyperlipidemia Hypertension Leukemia Cancer of kidney Arthritis Paternal Grandfather Coronary artery disease Maternal Grandfather Type 2 diabetes mellitus Paternal Grandmother Breast cancer Colon cancer Paternal Aunt Breast cancer Social History Household Members: Significant Other and Children Alcohol intake: current Alcohol intake frequency: does not drink Patient Tobacco Use Status: Never used Tobacco Current occupational status: unemployed 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
--- NOTE | 2023-09-25 12:46 | MHC.OFFVIS ---
Intake Vital Signs 09/25/23 12:46 Height 5 ft 7 in Weight 283 lb 8.231 oz BMI 44.4 BP 128/60 Blood Pressure Location Lt radial Position Sitting Pulse 85 Pulse Source Pulse Oximeter Temp 97 F Temp Source Skin Pulse Oximetry (%) 97 Oxygen Delivery Method Room Air Intake Visit Reasons: left hand tremors Allergies sulfadiazine Adverse Reaction (Intermediate, Verified 08/14/23 10:45) Anaphylaxis Medication List - Last Reconciled 09/25/23 by Laura Brewer MD dextromethorphan-guaifenesin 30-600 mg 1 tab PO QWEEK folic acid 1 mg PO DAILY hydroxyzine HCl 25 mg PO TID PRN methotrexate sodium 20 mg (8 x 2.5 mg) PO QWEEK sertraline 50 mg PO DAILY HPI HPI Comments History of Present Illness Details 48-year-old female with seronegative RA returns for follow-up. On methotrexate 20 mg weekly, folic acid 1 mg daily. She has been using dextromethorphan/guaifenesin the day after she takes methotrexate with improved nausea. She tested positive for COVID September 03 and was on isolation for 10 days. She held methotrexate for 2 weeks when she was sick. She states that over the last 2 days she has noticed that she has left index finger when she flexes it. It does not shake when it is in resting position. It occurred fairly abruptly and she is concerned. She also feels numbness in her left little finger and ulnar aspect of left ring finger. She continues to have arthralgias but she is better than before Initial history: This is a 46-year-old female with a past medical history of morbid obesity, PCOS, hidradenitis suppurativa, MARIBEL presents for evaluation of multiple joint pains. The condition started in early April of 2022 with relatively abrupt onset of bilateral for head pain, neck pain, bilateral shoulder pain and bilateral pain in her hands and morning stiffness lasting at least 1 hour causing difficultly with her dexterity. She took prednisone unknown dose for a few days by her PCP without any relief. Due to the persistence and severity of symptoms she went to the ER and had a CT head done which was negative. She followed up with her PCP who is ordering an MRI of her brain for further evaluation due to chronic headache. She continues to have pain in her neck radiating to her shoulders and hands. Patient has been taking Tylenol and NSAIDs for about 2 months without relief, prednisone did not provide any significant relief. She has bilateral hand numbness associated with pallor of her fingertips not associated with cold exposure. She had tried losing bladder or bowel control. She lost about 20 lb over the last 2 3 months unintentionally. She has a couple of cousins with multiple sclerosis [facility] Medical History Cervical radiculopathy Thyroid nodule Severe obesity Hidradenitis suppurativa Obstructive sleep apnea PCOS (polycystic ovarian syndrome) Headache Dysphagia GERD (gastroesophageal reflux disease) Allergic rhinitis Surgical History H/O ventral hernia repair Hx of cholecystectomy Hx of section Hx of knee surgery Family History Mother Hyperlipidemia Hypertension Arthritis Father Hyperlipidemia Hypertension Leukemia Cancer of kidney Arthritis Paternal Grandfather Coronary artery disease Maternal Grandfather Type 2 diabetes mellitus Paternal Grandmother Breast cancer Colon cancer Paternal Aunt Breast cancer Social History Household Members: Significant Other and Children Alcohol intake: current Alcohol intake frequency: does not drink Patient Tobacco Use Status: Never used Tobacco Current occupational status: unemployed 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 Review of Systems Musc Reports arthralgias, Reports numbness and Reports stiffness Neuro Reports numbness and Reports tremor(s) Physical Exam Const General: cooperative and healthy appearing Nutritional Appearance: obese morbidly obese Orientation/consciousness: patient oriented x3 Limitations: no limitations HEENT Head: Yes normocephalic and Yes atraumatic Mouth: Normal oral and palatal mucosa present Resp Effort & Inspection: normal respiratory effort and able to speak in complete sentences Auscultation: clear to auscultation bilaterally Cardio Rate: regular rate Rhythm: regular rhythm Skin General skin exam: no rashes or lesions noted Neuro General: patient oriented x3 Extrem Other: Normal nailfold capillaroscopy Right hand: Mildly tender tender wrist, pain with full flexion and extension of her wrist, right 4th and 5th MCP tenderness without significant swelling, mild tenderness of her PIPs. Positive MCP squeeze test Left hand : Tender wrist, pain with flexion and extension of her wrist. Tenderness to palpation of her 3rd MCP and 3rd and 4th PIP is. Positive MCP squeeze test Positive Tinel sign with electric shock sensation going to her left thumb Numbness upon palpation of left little finger and ulnar aspect of ring finger. Right hand: Positive Tinel sign with electric shock sensation traveling towards the elbow Left forearm numbness No DIP tenderness bilaterally Normal nailfold capillaroscopy Results Reviewed Results Reviewed: left hand MRI 08/2022 Impression: Normal hand MRI. No findings to suggest inflammatory arthropathy Seronegative RA panel 08/2022 Anti-CEP1 50 (moderate positive) Anti Sa negative Anti carbamylated P 28 (<20) 14-3-3 negative Assessment & Plan Assessment & Plan (1) Rheumatoid arthritis: Comment: seroneg dx 06/30 (++CEP, +cabamylated P) Prednisone ineffective MTX 06/30 effective Code(s): M06.9 - Rheumatoid arthritis, unspecified Qualifiers: Rheumatoid arthritis location: multiple sites Rheumatoid factor presence: without rheumatoid factor Qualified Code(s): M06.09 - Rheumatoid arthritis without rheumatoid factor, multiple sites Plan: This is a 47-year-old female with seronegative RA who returns for follow-up. On methotrexate 20 mg weekly and folic acid 1 mg daily. 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 Discussed teratogenic effects of methotrexate on fetus. She has PCOS and got 6 times after 12 rounds of IVF and has 1 child. She uses condoms regularly with her . (3) Paresthesia of left upper extremity: Code(s): R20.2 - Paresthesia of skin Plan: Abrupt onset of left index finger shaking with flexion. On exam she has numbness of left little finger and ulnar aspect of left ring finger. Reduced sensation left forearm. Will order bilateral upper extremity EMG/NCV to evaluate for neuropathy/radiculopathy Plan I spent 26 minutes reviewing patient's chart, evaluating patient, ordering diagnostic workup, counseling patient and documenting in the chart Orders: Orders NE electromyogram (EMG) Today R20.2 - Paresthesia of skin Coding Level of Care Code Est Pt Level 4 (67554) Diagnoses Rheumatoid arthritis of multiple sites with negative rheumatoid factor M06.09 Rheumatoid arthritis location: multiple sites Rheumatoid factor presence: without rheumatoid factor skilled nursing methotrexate user Z79.631 Paresthesia of left upper extremity R20.2
== END 2023-09-25 12:58 | disposition home or self-care (01) ==
PROVIDERS: PCP Pediatrics; Visit Provider Student in an Organized Health Care Education/Training Program
DX: M06.09 Rheumatoid arthritis without rheumatoid factor, multiple sites (principal); Z79.631 Long term (current) use of antimetabolite agent; R20.2 Paresthesia of skin
CPT/HCPCS: 99214

== ENCOUNTER → 2023-09-25 12:36 | Outpatient (BNVA) | payer OTHER, SELFPAY | PROVIDERS: PCP Pediatrics; Visit Provider Student in an Organized Health Care Education/Training Program ==

== ENCOUNTER 2023-10-24 12:57 | Outpatient (REF) | payer OTHER, SELFPAY ==
--- NOTE | 2023-10-24 13:01 | EMG_ITS ---
Chief complaint: Left 4th and 5th digits numbness, left forearm numbness Reason for referral: Evaluate for ulnar neuropathy Referred by: Dr. Brewer Procedure done: Left upper extremity NCS/EMG Precautions and/or limitations: None The limb temperature was monitored continuously and remained between 32-36 degrees C during the performance of the NCS. Nerve Conduction Studies Anti Sensory Summary Table ?Stim Site NR Onset (ms) Norm Onset (ms) Peak (ms) Norm Peak (ms) O-P Amp (?V) Norm O-P Amp Site1 Site2 Delta-0 (ms) Dist (cm) Rocky (m/s) Norm Rocky (m/s) Left Median Anti Sensory (2nd Digit) Wrist ? 2.6 3.2 <3.6 25.4 >10 Wrist 2nd Digit 2.6 14.0 54 Left Radial Anti Sensory (Thumb) Forearm ? 1.5 1.9 <3.1 6.2 Forearm Thumb 1.5 0.0 Left Ulnar Anti Sensory (5th Digit) Wrist ? 2.0 2.6 <3.7 18.5 >15.0 Wrist 5th Digit 2.0 14.0 70 Motor Summary Table ?Stim Site NR Onset (ms) Norm Onset (ms) O-P Amp (mV) Norm O-P Amp iAmp (mV) Amp (1st) (%) Site1 Site2 Delta-0 (ms) Dist (cm) Rocky (m/s) Norm Rocky (m/s) Left Median Motor (Abd Poll Brev) Wrist ? 3.0 <3.9 10.6 >4.5 12.3 100.0 Elbow Wrist 3.6 20.0 56 >45 Elbow ? 6.6 12.2 14.1 115.1 Left Ulnar Motor (Abd Dig Minimi) Wrist ? 2.5 <3.0 7.2 >5 9.3 100.0 B Elbow Wrist 3.1 19.0 61 >45 B Elbow ? 5.6 8.1 10.3 112.5 A Elbow B Elbow 1.4 10.0 71 >45 A Elbow ? 7.0 7.0 9.1 97.2 EMG ?Side Muscle Nerve Root Ins Act Fibs Psw Amp Dur Poly Recrt Int Pat Comment Left 1stDorInt Ulnar C8-T1 Nml Nml Nml Nml Nml 0 Nml Complete Left FlexCarRad Median C6-7 Nml Nml Nml Nml Nml 0 Nml Complete Left Biceps Musculocut C5-6 Nml Nml Nml Nml Nml 0 Nml Complete Left Triceps Radial C6-7-8 Nml Nml Nml Nml Nml 0 Nml Complete Left Deltoid Axillary C5-6 Nml Nml Nml Nml Nml 0 Nml Complete FINDINGS: All motor and sensory nerves tested showed normal latencies, amplitudes and conduction velocities. Concentric needle EMG was performed in selected muscles of the left upper extremity. Study did not reveal signs of electric abnormalities as shown in the table below. IMPRESSION: 1. This is a normal study. 2. There is no electrodiagnostic evidence for median neuropathy, ulnar neuropathy, brachial plexopathy, or cervical radiculopathy. Thank you for your kind referral. Meredith Faustin MD, DIPAK Board Certified, [place] Board [employer] Physical Medicine and Rehabilitation (ABPMR) Board Certified, [place] Board of Electrodiagnostic Medicine (ABEM) CODIN [id number] MTDD
== END 2023-10-24 12:58 | disposition home or self-care (01) ==
LOC: HO.NEURO 12:57
PROVIDERS: PCP Pediatrics; Visit Provider Student in an Organized Health Care Education/Training Program
DX: R20.2 Paresthesia of skin (principal)
CPT/HCPCS: 95886; 95909

== ENCOUNTER → 2023-10-24 13:01 | Outpatient (BNV) | payer OTHER, SELFPAY | PROVIDERS: PCP Pediatrics; Visit Provider Physical Medicine & Rehabilitation | DX: M79.602 Pain in left arm (principal); R20.2 Paresthesia of skin | CPT/HCPCS: 95886; 95909 ==

== ENCOUNTER 2023-11-11 09:00 | Outpatient (REF) | payer OTHER, SELFPAY ==
[2023-11-11 11:40] LABS: MANUAL DIFF FLAG NO
[2023-11-11 11:51] LABS: Basophils Absolute Auto 0.1 X10*3/uL (0.0-0.2); Basophils Percent Auto 0.8 % (0-2); Eosinophils Absolute Auto 0.1 X10*3/uL (0.0-0.4); Eosinophils Percent Auto 1.6 % (0-4); Hematocrit 42.7 % (37.0-47.0); Hemoglobin 14.2 g/dl (12.0-16.0); Imm Gran Abs Auto 0.01 X10*3/uL (0.00-0.03); Imm Gran Pct Auto 0.2 % (0.0-0.4); Lymphocytes Absolute Auto 1.9 X10*3/uL (1.2-4.9); Lymphocytes Percent Auto 29.6 % (20-40); Mean Corpuscular HGB Conc 33.3 g/dl (31.0-35.0); Mean Corpuscular Hemoglobin 29.5 pg (27.0-33.0); Mean Corpuscular Volume 88.6 fL (80.0-98.0); Mean Platelet Volume 10.8 fL (9.4-12.3); Monocytes Absolute Auto 0.3 X10*3/uL (0.1-1.2); Monocytes Percent Auto 5.3 % (2-11); Neutrophils Absolute Auto 3.9 x10*3/uL (2.0-8.3); Neutrophils Percent Auto 62.5 % (45-73); Platelet Count 350 X10*3/uL (160-400); Red Blood Count 4.82 X10*6/uL (4.20-5.50); Red Cell Distribution Width 13.2 % (11.0-16.0); White Blood Count 6.3 X10*3/uL (4.8-10.8)
[2023-11-11 12:03] LABS: Alanine Aminotransferase 40 U/L (0-31); Alkaline Phosphatase 66 U/L (39-117); Anion Gap 9 (12-20); Aspartate Amino Transferase 23 U/L (5-31); Bilirubin Total 0.6 mg/dL (0.0-1.0); Blood Urea Nitrogen 8 mg/dL (9-16); C Reactive Protein 0.56 mg/dL (< or = 0.50); Calcium 8.6 mg/dL (8.4-10.2); Carbon Dioxide 27 mmol/L (22-29); Chloride 107 mmol/L (96-108); Estimated Glomerular Filt Rate > 60; Glucose Random 122 mg/dL (60-115); Sodium 139 mmol/L (135-145); Total Protein 6.8 g/dL (6.5-8.0)
[2023-11-11 12:28] LABS: Erythrocyte Sedimentation Rate 6 MM/HR (0-20)
== END 2023-11-11 09:01 | disposition home or self-care (01) ==
LOC: HO.HMGCLDS 09:00
PROVIDERS: PCP Pediatrics; Visit Provider Student in an Organized Health Care Education/Training Program
DX: Z51.81 Encounter for therapeutic drug level monitoring (principal); Z79.631 Long term (current) use of antimetabolite agent
CPT/HCPCS: 36415; 80053; 85025; 85652; 86140

== ENCOUNTER 2023-11-17 09:50 | Outpatient (AMB) | payer OTHER, SELFPAY ==
--- NOTE | 2023-11-17 10:02 | MHC.OFFVIS ---
Intake Vital Signs 11/17/23 10:03 Height 5 ft 7 in Weight 285 lb 11.505 oz BMI 44.7 BP 126/78 Blood Pressure Location Lt brachial Position Sitting Pulse 85 Pulse Source Pulse Oximeter Temp 97.5 F Temp Source Skin Pulse Oximetry (%) 97 Oxygen Delivery Method Room Air Intake Visit Reasons: RA Intake Note: Patient last seen 09/25/23 presents today for follow up and test results. Leach Runner Required: No Accompanied by: Self / Same As Patient Allergies sulfadiazine Adverse Reaction (Intermediate, Verified 11/17/23 10:02) Anaphylaxis Medication List - Last Reconciled 11/17/23 by Laura Brewer MD folic acid 1 mg PO DAILY hydroxyzine HCl 25 mg PO TID PRN methotrexate sodium 20 mg (8 x 2.5 mg) PO QWEEK sertraline 50 mg PO DAILY HPI HPI Comments History of Present Illness Details 48-year-old female with seronegative RA returns for follow-up. On methotrexate 20 mg weekly, folic acid 1 mg daily. She states that her hands are doing better overall. Denies any side effects related to methotrexate. She states that her back pain from her degenerative disc disease is getting worse. It radiates towards her left lower extremity. She states that she had PT done for the same condition for years ago and it was not very helpful. It is coming back these days. Patient drinks 1 glass of alcohol a week. Has not had any recent illnesses. Initial history: This is a 46-year-old female with a past medical history of morbid obesity, PCOS, hidradenitis suppurativa, MARIBEL presents for evaluation of multiple joint pains. The condition started in early April of 2022 with relatively abrupt onset of bilateral for head pain, neck pain, bilateral shoulder pain and bilateral pain in her hands and morning stiffness lasting at least 1 hour causing difficultly with her dexterity. She took prednisone unknown dose for a few days by her PCP without any relief. Due to the persistence and severity of symptoms she went to the ER and had a CT head done which was negative. She followed up with her PCP who is ordering an MRI of her brain for further evaluation due to chronic headache. She continues to have pain in her neck radiating to her shoulders and hands. Patient has been taking Tylenol and NSAIDs for about 2 months without relief, prednisone did not provide any significant relief. She has bilateral hand numbness associated with pallor of her fingertips not associated with cold exposure. She had tried losing bladder or bowel control. She lost about 20 lb over the last 2 3 months unintentionally. She has a couple of cousins with multiple sclerosis [facility] Medical History Cervical radiculopathy Thyroid nodule Severe obesity Hidradenitis suppurativa Obstructive sleep apnea PCOS (polycystic ovarian syndrome) Headache Dysphagia GERD (gastroesophageal reflux disease) Allergic rhinitis Surgical History H/O ventral hernia repair Hx of cholecystectomy Hx of section Hx of knee surgery Family History Mother Hyperlipidemia Hypertension Arthritis Father Hyperlipidemia Hypertension Leukemia Cancer of kidney Arthritis Paternal Grandfather Coronary artery disease Maternal Grandfather Type 2 diabetes mellitus Paternal Grandmother Breast cancer Colon cancer Paternal Aunt Breast cancer Social History Household Members: Significant Other and Children Alcohol intake: current Alcohol intake frequency: does not drink Patient Tobacco Use Status: Never used Tobacco Current occupational status: unemployed 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 Review of Systems Musc Reports back pain and Reports radiating pain into limb Physical Exam Vital Signs: Last Vital Signs Temp 97.5 F 11/17/23 10:03 Pulse 85 11/17/23 10:03 BP 126/78 11/17/23 10:03 Pulse Ox 97 11/17/23 10:03 Oxygen Delivery Method Room Air 11/17/23 10:03 BMI result Body Mass Index 44.7 Const General: cooperative and healthy appearing Nutritional Appearance: obese morbidly obese Orientation/consciousness: patient oriented x3 Limitations: no limitations HEENT Head: Yes normocephalic and Yes atraumatic Mouth: Normal oral and palatal mucosa present Resp Effort & Inspection: normal respiratory effort and able to speak in complete sentences Auscultation: clear to auscultation bilaterally Cardio Rate: regular rate Rhythm: regular rhythm Back/Spine/Pelvis Other: Bilateral lumbar paraspinal muscle tenderness Skin General skin exam: no rashes or lesions noted Neuro General: patient oriented x3 Extrem Other: Normal nailfold capillaroscopy Right hand: Mildly tender tender wrist, pain with full flexion and extension of her wrist, right 4th and 5th MCP tenderness without swelling, mild tenderness of her PIPs. Positive MCP squeeze test Left hand : Tender wrist, pain with flexion and extension of her wrist. Tenderness to palpation of her 3rd MCP and 3rd and 4th PIP is. Positive MCP squeeze test Left knee crepitus No DIP tenderness bilaterally Normal nailfold capillaroscopy Results Reviewed Results Reviewed: left hand MRI 08/2022 Impression: Normal hand MRI. No findings to suggest inflammatory arthropathy Seronegative RA panel 08/2022 Anti-CEP1 50 (moderate positive) Anti Sa negative Anti carbamylated P 28 (<20) 14-3-3 negative Assessment & Plan Assessment & Plan (1) Rheumatoid arthritis: Comment: seroneg dx 06/30 (++CEP, +cabamylated P) Prednisone ineffective MTX 06/30 effective Code(s): M06.9 - Rheumatoid arthritis, unspecified Qualifiers: Rheumatoid arthritis location: multiple sites Rheumatoid factor presence: without rheumatoid factor Qualified Code(s): M06.09 - Rheumatoid arthritis without rheumatoid factor, multiple sites Plan: This is a 48-year-old female with seronegative RA who returns for follow-up. On methotrexate 20 mg weekly and folic acid 1 mg daily. Doing well overall Labs showed mild transaminitis. Will lower methotrexate to 15 mg weekly, continue with folic acid 1 mg daily Labs before next visit in 2 months (2) [facility] methotrexate user: Code(s): Z79.631 - terminal makeup operator (current) use of antimetabolite agent Plan: monitor safety labs Patient rarely drinks alcohol. Discussed teratogenic effects of methotrexate on fetus. She has PCOS and got 6 times after 12 rounds of IVF and has 1 child. She uses condoms regularly with her . (3) Paresthesia of left upper extremity: Code(s): R20.2 - Paresthesia of skin Plan: EMG/NCV unremarkable. Follow-up with PCP (4) Lumbar radiculopathy: Code(s): M54.16 - Radiculopathy, lumbar region Plan: Referred to pain management. Salonpas trial Plan I spent 26 minutes reviewing patient's chart, evaluating patient, ordering diagnostic workup, counseling patient and documenting in the chart Orders: Orders Complete Blood Count Auto Diff 2 Months Z79.631 - [facility] (current) use of antimetabolite agent Erythrocyte Sedimentation Rate 2 Months Z79.631 - [facility] (current) use of antimetabolite agent C Reactive Protein 2 Months Z79.63 - [facility] (current) use of antimetabolite agent Comprehensive Met. Panel 2 Months Z63 - terminal makeup operator (current) use of antimetabolite agent Referrals Pain Management Referral M54.16 - Radiculopathy, lumbar region Medications: Changed From methotrexate sodium 20 mg (8 x 2.5 mg) PO QWEEK 96 tabs 0RF To methotrexate sodium 15 mg (6 x 2.5 mg) PO QWEEK 48 tabs 0RF Coding Level of Care Code Est Pt Level 4 (34095) Diagnoses Rheumatoid arthritis of multiple sites with negative rheumatoid factor M06.09 Rheumatoid arthritis location: multiple sites Rheumatoid factor presence: without rheumatoid factor terminal makeup operator methotrexate user Z79.631 Paresthesia of left upper extremity R20.2 Lumbar radiculopathy M54.16
[2023-11-17 10:03] VITALS: BP 126/78; PULSE 85; TEMP 36.4; O2SAT 97; BMI 44.7
== END 2023-11-17 10:38 | disposition home or self-care (01) ==
PROVIDERS: PCP Pediatrics; Visit Provider Student in an Organized Health Care Education/Training Program
DX: M06.09 Rheumatoid arthritis without rheumatoid factor, multiple sites (principal); Z79.631 Long term (current) use of antimetabolite agent; R20.2 Paresthesia of skin; M54.16 Radiculopathy, lumbar region
CPT/HCPCS: 99214

== ENCOUNTER → 2023-11-17 09:50 | Outpatient (BNVA) | payer OTHER, SELFPAY | PROVIDERS: PCP Pediatrics; Visit Provider Student in an Organized Health Care Education/Training Program ==

== ENCOUNTER 2023-12-01 09:57 | Outpatient (REF) | payer OTHER, SELFPAY ==
--- NOTE | ~2023-12-01 | XR_ITS ---
EXAMINATION: XR SACROILIAC JOINTS CLINICAL INFORMATION: Sacrococcygeal disorders, not elsewhere classified. COMPARISON: None available. TECHNIQUE: AP and bilateral Judet views of the sacroiliac joints FINDINGS: Bones and soft tissues are normal. No fracture. Alignment is anatomic. Sacroiliac joint spaces are well-maintained without erosions or surrounding sclerosis. There is sacralization of the L5 left transverse process. XR/XR sacroiliac joint min 3V IMPRESSION: 1. Normal sacroiliac joints. 2. There is sacralization of the L5 left transverse process.
--- NOTE | ~2023-12-01 | XR_ITS ---
EXAMINATION: XR LUMBOSACRAL SPINE WITH OBLIQUES CLINICAL INFORMATION: Lumbar radiculopathy. COMPARISON: None available. TECHNIQUE: AP, both oblique, and lateral (neutral, flexion and extension) views of the lumbosacral spine are submitted, together with a lateral view of the lumbosacral junction. FINDINGS: Vertebral body heights and alignment are normal. The lower thoracic and lumbar disc spaces are well-maintained. No acute fracture or spondylolisthesis is seen. There is multi-level lower thoracic and lumbar endplate arthropathy. The posterior elements are intact. There is facet arthropathy at L5-S1. The paravertebral soft tissues are unremarkable. Herniorrhaphy mesh is seen. There are right upper quadrant surgical clips. XR/XR lumbar spine 6V w bending IMPRESSION: 1. No acute fracture or spondylolisthesis is seen. 2. The lower thoracic and lumbar disc spaces are well-maintained. 3. There is multi-level lower thoracic and lumbar degenerative facet arthropathy. 4. There is facet arthropathy at L5-S1.
== END 2023-12-01 09:58 | disposition home or self-care (01) ==
LOC: HO.XRAY 09:57
PROVIDERS: PCP Pediatrics; Visit Provider Nurse Practitioner Family
DX: M54.16 Radiculopathy, lumbar region (principal); M47.817 Spondylosis without myelopathy or radiculopathy, lumbosacral region; M51.36 Other intervertebral disc degeneration, lumbar region; M53.3 Sacrococcygeal disorders, not elsewhere classified
CPT/HCPCS: 72114; 72202

== ENCOUNTER 2023-12-01 09:57 | Outpatient (AMB) | payer OTHER, SELFPAY ==
--- NOTE | 2023-12-01 10:03 | MHC.OFFVIS ---
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 She was initilly seen in our office [address] Marie for neck pain. Denies any recent trauma, injury or falls. Back pain is axial and also radiates to left lower extremity in L5-S1 distribution with associated numbness, tingling and burning in her lower back. Patient also has widespread body pain with multiple tender points consistent with fibromyalgia. Patient reports she wakes up every morning with significant stiffness and pain worsens through the day and night. She has tried physical therapy, massages, chiropractic therapies and therapeutic back injections without improvement in her symptoms or functioning. Ambulates with antalgic gait and reports intermittent left leg weakness. Denies any fever, abdominal or groin pain, bladder or bowel dysfunction, foot drop, or saddle anesthesia. Location Lower back, neck, elbows, left knee, widespread body pain Duration Chronic pain for many years Characteristics of symptom or complaint Aching, shooting, cramping, radiating, burning, stabbing, pulling Aggravating or associated factors Movement, walking, sitting, bending, heel standing, cold weather Relieving factors Heat therapy, Tylenol, Salonpas, NSAID, Methotrexate, tizanidine Treatment PT for neck 2022, for 2019-no improvement, back TPI injection at [facility] HPI Comments History of Present Illness Details PRIOR 09/06/22 Dr. Marie: 46-year-old female presenting with pain in the neck, back, legs, arms, hands that has been ongoing for a long time but has been recently progressively worse in the last 6 months. Referred to us by Rheumatology for evaluation of degenerative disc disease in the cervical spine. Patient describes that her symptoms of polyarticular pain and stiffness have been worsening with increased intensity at morning and night when her pain is rated as 5 to 8/10. 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 She is unable to sleep normally despite trying different pillows for her neck. Pain is described as a constant sharp stabbing sensation that is worse on some days than others. No known exacerbating factor. She has undergone a rheumatologic workup that she states has returned some positive results that she is due to discuss with Dr. Brewer next week. [facility], [facility] Medical History Cervical radiculopathy Thyroid nodule Severe obesity Hidradenitis suppurativa Obstructive sleep apnea PCOS (polycystic ovarian syndrome) Headache Dysphagia GERD (gastroesophageal reflux disease) Allergic rhinitis Surgical History H/O ventral hernia repair Hx of cholecystectomy Hx of section Hx of knee surgery Family History Mother Hyperlipidemia Hypertension Arthritis Father Hyperlipidemia Hypertension Leukemia Cancer of kidney Arthritis Paternal Grandfather Coronary artery disease Maternal Grandfather Type 2 diabetes mellitus Paternal Grandmother Breast cancer Colon cancer Paternal Aunt Breast cancer Social History Household Members: Significant Other and Children Alcohol intake: current Alcohol intake frequency: does not drink Patient Tobacco Use Status: Never used Tobacco Current occupational status: unemployed 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 Morbidly obese. Alert and oriented x3. No acute distress. Mood and affect appropriate. Pleasant. Follows and participates in conversation appropriately. Respiratory effort is unlabored. No cough. Able to transition from sit to stand unassisted. Ambulates with bilaterally normal heel strike and toe off, increased pain on left with heel standing/walking. Back/Spine/Pelvis Other: Limited lumbar ROM due to pain. Mild limping favoring right side, antalgic gait. Can flex forward to 60-65 degrees and extend to 5-10 degrees before experiencing lumbar pain. Demonstrates 5/5 strength of quadriceps bilaterally as well as flexion/dorsiflexion of bilateral feet against resistance. 2+ pedal pulses bilaterally. Seated straight leg rise with dorsiflexion positive on the left, negative on the right. Diminished patellar and achilles reflexes bilaterally. Facet loading test positive bilaterally. Watson sign, Yusuf?s, Pelvic compression and Stinchfield tests are positive on the left, equivocal on the right. No groin pain with I/E hip rotations. Valsalva maneuver negative. Cervical Spine: cervical ROM normal, cervical muscular tenderness, No Cervical spine tenderness and No step off deformity Thoracic/Lumbar Spine: thoracic and lumbar spine normal to inspection, No Thoracic/lumbar spine scar(s), Lasegue's sign positive on the left and diffuse, pain with thoraco-lumbar ROM, paraspinal muscle tenderness on the left greater than right, thoraco-lumbar ROM limited, No thoracic spinal tenderness and lumbar spinal tenderness (L4-S1) Pelvis: buttock tenderness on the left Sacroiliac joints: bilaterally tender to palpation Results Reviewed Results Reviewed: No imaging is available for review. Assessment & Plan Assessment & Plan (1) Lumbar radiculopathy: Code(s): M54.16 - Radiculopathy, lumbar region (2) Lumbosacral spondylosis: Code(s): M47.817 - Spondylosis without myelopathy or radiculopathy, lumbosacral region (3) Lumbar degenerative disc disease: Code(s): M51.36 - Other intervertebral disc degeneration, lumbar region (4) Sacroiliac joint pain: Code(s): M53.3 - Sacrococcygeal disorders, not elsewhere classified (5) Fibromyalgia: Code(s): M79.7 - Fibromyalgia Plan Lumbar spine and SIJ imaging to assess degree of degenerative changes, any subluxation, listhesis, compression fractures or pars defects. Discussed interventional treatments for axial and radicular low back pain, including diagnostic vs therapeutic injections, peripheral nerve stimulation and RFA. Patient is not candidate for Sprint PNS trial for BMI>40. She is trying to loose weight but has been limited in walking capacity and tolerance due to significant back and left leg pain. If normal xrays, will proceed with lumbar spine MRI. Patient also has some features of fibromyalgia. Encouraged daily physical activity as tolerated, aqua therapy, well balanced diet and weight optimizations, adequate hydration, stress management, CBT therapy and good posture. Consider swimming, gentle stretching exercises, walking, cycling, and aerobic exercise which are the overall most effective treatments for fibromyalgia. Scripts sent for gabapentin and tizanidine. Side effects and precautions were reviewed with patient. All questions and concerns have been answered and patient agreed with the plan. Follow up for xray results and sooner as needed. Shellie Rosales., Adrián Ibrahim, Shivam Lopez, Trang Roach, Royce Garvey, & ?Shellie Kerns (2017). Effectiveness of Therapeutic Exercise in Fibromyalgia Syndrome: A Systematic Review and [place]-Analysis of Randomized Clinical Trials. [employer], 2017, [id number]. [email or web address] Orders: Orders XR lumbar spine 6V w bending 12/01/23 M47.817 - Spondylosis without myelopathy or radiculopathy, lumbosacral region, M51.36 - Other intervertebral disc degeneration, lumbar region, M54.16 - Radiculopathy, lumbar region XR sacroiliac joint min 3V 12/01/23 M51.36 - Other intervertebral disc degeneration, lumbar region, M53.3 - Sacrococcygeal disorders, not elsewhere classified Medications: New gabapentin 300 mg PO BEDTIME 30 days 30 caps 0RF pain M51.36 - Other intervertebral disc degeneration, lumbar region, M54.16 - Radiculopathy, lumbar region tizanidine 4 mg PO BID 30 days PRN 60 tabs 2RF muscle spasticity M47.817 - Spondylosis without myelopathy or radiculopathy, lumbosacral region, M54.16 - Radiculopathy, lumbar region, M62.830 - Muscle spasm of back Coding Level of Care Code New Pt Level 4 (39340) Diagnoses Lumbar radiculopathy M54.16 Lumbosacral spondylosis M47.817 Lumbar degenerative disc disease M51.36 Sacroiliac joint pain M53.3 Fibromyalgia M79.7
[2023-12-01 10:13] VITALS: BP 168/73; PULSE 83; O2SAT 100; BMI 44.5
== END 2023-12-01 10:55 | disposition home or self-care (01) ==
PROVIDERS: PCP Pediatrics; Visit Provider Nurse Practitioner Family
DX: M54.16 Radiculopathy, lumbar region (principal); M47.817 Spondylosis without myelopathy or radiculopathy, lumbosacral region; M51.36 Other intervertebral disc degeneration, lumbar region; M53.3 Sacrococcygeal disorders, not elsewhere classified; M79.7 Fibromyalgia
CPT/HCPCS: 99204

== ENCOUNTER 2024-01-05 13:41 | Outpatient (AMB) | payer OTHER, SELFPAY ==
--- NOTE | 2024-01-05 13:43 | A.OFFVIS_ITS ---
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 Denies any recent cough, cold, infection, fever, any significant changes in her medical history, medications or recent hospitalizations. Oswestry Low Back Disability=28 (severe disability) PRIOR: Patient is a pleasant 48 year old female with history of seronegative RA on long-term methotrexate, polyarthralgia, cervical and lumbar DDD, left knee surgery (reconstructive for patella injury) and fibromyalgia, presents today for initial evaluation of chronic lower back pain with left sided sciatica. She was initilly seen in our office [address] Marie for neck pain. Denies any recent trauma, injury or falls. Back pain is axial and also radiates to left lower extremity in L5-S1 distribution with associated numbness, tingling and burning in her lower back. Patient also has widespread body pain with multiple tender points consistent with fibromyalgia. Patient reports she wakes up every morning with significant stiffness and pain worsens through the day and night. She has tried physical therapy, massages, chiropractic therapies and therapeutic back injections without improvement in her symptoms or functioning. Ambulates with antalgic gait and reports intermittent left leg weakness. Denies any fever, abdominal or groin pain, bladder or bowel dysfunction, foot drop, or saddle anesthesia. Location Lower back, neck, elbows, left knee, widespread body pain Duration Chronic pain for many years Characteristics of symptom or complaint Aching, shooting, cramping, radiating, burning, stabbing, pulling Aggravating or associated factors Movement, walking, sitting, bending, heel standing, cold weather Relieving factors Heat therapy, Tylenol, Salonpas, NSAID, Methotrexate, tizanidine Treatment PT for neck 2022, for 2019-no improvement, back TPI injection at [facility] PRIOR 09/06/22 Dr. Marie: 46-year-old female presenting with pain in the neck, back, legs, arms, hands that has been ongoing for a long time but has been recently progressively worse in the last 6 months. Referred to us by Rheumatology for evaluation of degenerative disc disease in the cervical spine. Patient describes that her symptoms of polyarticular pain and stiffness have been worsening with increased intensity at morning and night when her pain is rated as 5 to 8/10. 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 She is unable to sleep normally despite trying different pillows for her neck. Pain is described as a constant sharp stabbing sensation that is worse on some days than others. No known exacerbating factor. She has undergone a rheumatologic workup that she states has returned some positive results that she is due to discuss with Dr. Brewer next week. [facility] Medical History Cervical radiculopathy Thyroid nodule Severe obesity Hidradenitis suppurativa Obstructive sleep apnea PCOS (polycystic ovarian syndrome) Headache Dysphagia GERD (gastroesophageal reflux disease) Allergic rhinitis Surgical History H/O ventral hernia repair Hx of cholecystectomy Hx of section Hx of knee surgery Family History Mother Hyperlipidemia Hypertension Arthritis Father Hyperlipidemia Hypertension Leukemia Cancer of kidney Arthritis Paternal Grandfather Coronary artery disease Maternal Grandfather Type 2 diabetes mellitus Paternal Grandmother Breast cancer Colon cancer Paternal Aunt Breast cancer Social History Household Members: Significant Other and Children Alcohol intake: current Alcohol intake frequency: does not drink Patient Tobacco Use Status: Never used Tobacco Current occupational status: unemployed 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 Morbidly obese. Alert and oriented x3. No acute distress. Mood and affect appropriate. Pleasant. Follows and participates in conversation appropriately. Respiratory effort is unlabored. No cough. Able to transition from sit to stand unassisted. Ambulates with bilaterally normal heel strike and toe off, increased pain on left with heel standing/walking. Back/Spine/Pelvis Other: Limited lumbar ROM due to pain. Mild limping favoring right side, antalgic gait. Can flex forward to 60-65 degrees and extend to 5-10 degrees before experiencing lumbar pain. Demonstrates 5/5 strength of quadriceps bilaterally as well as flexion/dorsiflexion of bilateral feet against resistance. 2+ pedal pulses bilaterally. Diminished patellar and achilles reflexes bilaterally. Facet loading test positive bilaterally. Watson sign, Yusuf?s, Pelvic compression and Stinchfield tests are positive bilaterally, left>right. No groin pain with I/E hip rotations. Valsalva maneuver negative. Cervical Spine: cervical ROM normal, cervical muscular tenderness, No Cervical spine tenderness and No step off deformity Thoracic/Lumbar Spine: thoracic and lumbar spine normal to inspection, No Thoracic/lumbar spine scar(s), Lasegue's sign negative, straight leg raise negative bilaterally, pain with thoraco-lumbar ROM, paraspinal muscle tenderness on the left greater than right, thoraco-lumbar ROM limited, No thoracic spinal tenderness and lumbar spinal tenderness (L4-S1) Pelvis: no buttock tenderness Sacroiliac joints: bilaterally tender to palpation Extrem General: Yes capillary refill normal, Yes no clubbing, cyanosis or edema and Yes no calf tenderness Results Reviewed Results Reviewed: XR SACROILIAC JOINTS 12/01/23 FINDINGS: Bones and soft tissues are normal. No fracture. Alignment is anatomic. Sacroiliac joint spaces are well-maintained without erosions or surrounding sclerosis. There is sacralization of the L5 left transverse process. IMPRESSION: 1. Normal sacroiliac joints. 2. There is sacralization of the L5 left transverse process. XR LUMBOSACRAL SPINE WITH OBLIQUES 12/01/23 CLINICAL INFORMATION: Lumbar radiculopathy. FINDINGS: Vertebral body heights and alignment are normal. The lower thoracic and lumbar disc spaces are well-maintained. No acute fracture or spondylolisthesis is seen. There is multi-level lower thoracic and lumbar endplate arthropathy. The posterior elements are intact. There is facet arthropathy at L5-S1. The paravertebral soft tissues are unremarkable. Herniorrhaphy mesh is seen. There are right upper quadrant surgical clips. IMPRESSION: 1. No acute fracture or spondylolisthesis is seen. 2. The lower thoracic and lumbar disc spaces are well-maintained. 3. There is multi-level lower thoracic and lumbar degenerative facet arthropathy. 4. There is facet arthropathy at L5-S1. Assessment & Plan Assessment & Plan (1) Fibromyalgia: Code(s): M79.7 - Fibromyalgia Category: Medical (2) Muscle spasm of back: Code(s): M62.830 - Muscle spasm of back Category: Medical (3) Sacroiliac joint pain: Code(s): M53.3 - Sacrococcygeal disorders, not elsewhere classified Category: Medical (4) Lumbar degenerative disc disease: Code(s): M51.36 - Other intervertebral disc degeneration, lumbar region Category: Medical (5) Lumbosacral spondylosis: Code(s): M47.817 - Spondylosis without myelopathy or radiculopathy, lumbosacral region Category: Medical (6) Intractable low back pain: Code(s): M54.59 - Other low back pain Category: Medical (7) 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 For ongoing axial low back pain will schedule diagnostic bilateral L3-L4 DR L5 medial branch blocks with local, oral Ativan and fluoroscopy. If she has significant relief from the diagnostic blocks for her axial low back pain, will consider either therapeutic injections or RFA depending on her preference. Patient is not candidate for Sprint PNS due to BMI>40. Patient continues to loose weight but reports walking capacity and daily physical activity is significantly limited due to low back pain. [employer] Plac[employer] application signed at patient's request today. Patient is tolerating gabapentin at bedtime and would like to increase it to BID. Continue to monitor for any side effects. All questions and concerns have been answered and patient agreed with the plan. Follow up after injections and sooner as needed. Medications: Changed From gabapentin 300 mg PO BEDTIME 30 days 30 caps 0RF pain M51.36 - Other intervertebral disc degeneration, lumbar region, M54.16 - Radiculopathy, lumbar region To gabapentin 300 mg PO BID 30 days 60 caps 0RF pain M51.36 - Other inte rvertebral disc degeneration, lumbar region, M54.16 - Radiculopathy, lumbar region Coding Level of Care Code Est Pt Level 4 (70203) Diagnoses Fibromyalgia M79.7 Muscle spasm of back M62.830 Sacroiliac joint pain M53.3 Lumbar degenerative disc disease M51.36 Lumbosacral spondylosis M47.817 Intractable low back pain M54.59 Sacralization of lumbar vertebra Q76.49
[2024-01-05 13:46] VITALS: BP 144/75; PULSE 71; O2SAT 98; BMI 44.5
== END 2024-01-05 14:02 | disposition home or self-care (01) ==
PROVIDERS: PCP Pediatrics; Referring Provider Pediatrics; Visit Provider Nurse Practitioner Family
DX: M79.7 Fibromyalgia (principal); M62.830 Muscle spasm of back; M53.3 Sacrococcygeal disorders, not elsewhere classified; M51.36 Other intervertebral disc degeneration, lumbar region; M47.817 Spondylosis without myelopathy or radiculopathy, lumbosacral region; M54.59 Other low back pain; Q76.49 Other congenital malformations of spine, not associated with scoliosis
CPT/HCPCS: 99214

== ENCOUNTER → 2024-01-05 13:41 | Outpatient (BNVA) | payer OTHER, SELFPAY | PROVIDERS: PCP Pediatrics; Visit Provider Nurse Practitioner Family ==

== ENCOUNTER 2024-01-15 09:03 | Outpatient (REF) | payer OTHER, SELFPAY ==
[2024-01-15 10:36] LABS: MANUAL DIFF FLAG NO
[2024-01-15 10:45] LABS: Basophils Absolute Auto 0.1 X10*3/uL (0.0-0.2); Basophils Percent Auto 0.9 % (0-2); Eosinophils Absolute Auto 0.1 X10*3/uL (0.0-0.4); Eosinophils Percent Auto 1.6 % (0-4); Hematocrit 41.6 % (37.0-47.0); Hemoglobin 14.4 g/dl (12.0-16.0); Imm Gran Abs Auto 0.03 X10*3/uL (0.00-0.03); Imm Gran Pct Auto 0.3 % (0.0-0.4); Lymphocytes Absolute Auto 2.1 X10*3/uL (1.2-4.9); Lymphocytes Percent Auto 24.4 % (20-40); Mean Corpuscular HGB Conc 34.6 g/dl (31.0-35.0); Mean Corpuscular Hemoglobin 30.3 pg (27.0-33.0); Mean Corpuscular Volume 87.6 fL (80.0-98.0); Monocytes Absolute Auto 0.6 X10*3/uL (0.1-1.2); Monocytes Percent Auto 7.2 % (2-11); Neutrophils Absolute Auto 5.7 x10*3/uL (2.0-8.3); Neutrophils Percent Auto 65.6 % (45-73); Platelet Count 353 X10*3/uL (160-400); Red Blood Count 4.75 X10*6/uL (4.20-5.50); Red Cell Distribution Width 13.3 % (11.0-16.0); White Blood Count 8.7 X10*3/uL (4.8-10.8)
[2024-01-15 11:09] LABS: Alanine Aminotransferase 29 U/L (0-31); Albumin Level 4.1 g/dL (3.5-5.0); Alkaline Phosphatase 62 U/L (39-117); Anion Gap 13 (12-20); Aspartate Amino Transferase 19 U/L (5-31); Bilirubin Total 0.4 mg/dL (0.0-1.0); Blood Urea Nitrogen 9 mg/dL (9-16); C Reactive Protein 0.53 mg/dL (< or = 0.50); Calcium 9.1 mg/dL (8.4-10.2); Carbon Dioxide 24 mmol/L (22-29); Chloride 106 mmol/L (96-108); Estimated Glomerular Filt Rate > 60; Glucose Random 108 mg/dL (60-115); Potassium 4.1 mmol/L (3.3-5.1); Sodium 139 mmol/L (135-145)
[2024-01-15 11:42] LABS: Erythrocyte Sedimentation Rate 7 MM/HR (0-20)
== END 2024-01-15 09:04 | disposition home or self-care (01) ==
LOC: HO.HMGCLDS 09:03
PROVIDERS: PCP Pediatrics; Visit Provider Student in an Organized Health Care Education/Training Program
DX: Z79.631 Long term (current) use of antimetabolite agent (principal)
CPT/HCPCS: 36415; 80053; 85025; 85652; 86140

== ENCOUNTER 2024-02-03 06:12 | Outpatient (REF) | payer OTHER, SELFPAY ==
--- NOTE | ~2024-02-03 | FL_ITS ---
EXAMINATION: XR FLUOROSCOPY WITH IMAGES CLINICAL INFORMATION: Lumbosacral spondylosis without myelopathy or radiculopathy. COMPARISON: Lumbar spine radiographs 12/01/2023. TECHNIQUE: Fluoroscopy Supervised By: Dr. Brown. Fluoroscopy Time: 0.7 min. Cumulative Dose: 18.1 mGy. DAP: 0.315 Gycm2. Images: 12. FINDINGS: Intraoperative fluoroscopy and spot films were performed during a procedure in the OR. [place] are present in the transforaminal epidural region at 3 consecutive levels in the lower lumbosacral spine bilaterally. Contrast is injected at each site. Clips from an abdominal wall hernia repair are likely present. Please see Dr. Brown's report for complete details. FL/FL guidance in treatment room IMPRESSION: Intraoperative fluoroscopy and spot films were obtained. Please see Dr. Brown's report for complete details.
== END 2024-02-03 06:13 | disposition home or self-care (01) ==
LOC: CF 06:12
PROVIDERS: Visit Provider Anesthesiology
DX: M47.817 Spondylosis without myelopathy or radiculopathy, lumbosacral region (principal); M79.7 Fibromyalgia; M62.830 Muscle spasm of back; M53.3 Sacrococcygeal disorders, not elsewhere classified; M51.36 Other intervertebral disc degeneration, lumbar region
CPT/HCPCS: 64493; 64494; J2795; Q9967

== ENCOUNTER 2024-02-03 09:31 | Outpatient (AMB) | payer OTHER, SELFPAY ==
--- NOTE | 2024-02-03 10:13 | MHC.OFFVIS ---
Vital Signs 02/03/24 10:59 02/03/24 11:04 Height 5 ft 7 in Weight 284 lb BMI 44.5 BP 130/70 120/82 Blood Pressure Location Lt brachial Lt brachial Position Sitting Sitting Respiration 16 16 Pulse 81 88 Pulse Source Pulse Oximeter Pulse Oximeter Pulse Oximetry (%) 97 98 Oxygen Delivery Method Room Air Room Air Comment Pre-Op Post-Op Intake Visit Reasons: Jeremiah Dx L3-L4-DR-L5 MBB Allergies sulfadiazine Adverse Reaction (Intermediate, Verified 01/05/24 13:47) Anaphylaxis PFSH Medical History Cervical radiculopathy Thyroid nodule Severe obesity Hidradenitis suppurativa Obstructive sleep apnea PCOS (polycystic ovarian syndrome) Headache Dysphagia GERD (gastroesophageal reflux disease) Allergic rhinitis Surgical History H/O ventral hernia repair Hx of cholecystectomy Hx of section Hx of knee surgery Family History Mother Hyperlipidemia Hypertension Arthritis Father Hyperlipidemia Hypertension Leukemia Cancer of kidney Arthritis Paternal Grandfather Coronary artery disease Maternal Grandfather Type 2 diabetes mellitus Paternal Grandmother Breast cancer Colon cancer Paternal Aunt Breast cancer Social History Household Members: Significant Other and Children Alcohol intake: current Alcohol intake frequency: does not drink Patient Tobacco Use Status: Never used Tobacco Current occupational status: unemployed 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 ? ?Informed consent was explained to the patient. All questions were explained and? answered.? The patient was taken inside the operating room where she was positioned prone on the operating table. Time-out was performed delineating correct site, side, the nature of the procedure, patient's allergy, . All operating room staff was participating in OR time-out procedure. ? ? The lower back was prepped with ChloraPrep and draped with sterile towels.? C-arm was brought over the operating field and sq picture of L4-, L5 vertebra and S1 AREA were delineated on the screen.? Point of interest were delineated as confluence of superior articular process of L4 and L5 vertebra bilaterally with corresponding transverse processes as well as confluence of the sacral alae bilaterally with superior articular process of S1.? The projection of the point of interest to the skin were injected with the small amount of local anesthetic lidocaine 2% 1-1.5 cc.? After that 22 gauge 3.5 inch spinal needle was driven sequentially to the points of interest in tunnel vision fashion. After needles gently contacted the bone at the point of interests the needle was injected with small amount of the contrast.? The injection of the contrast did not demonstrate any intravascular or intrathecal spread of the contrast.? After that injection of the? ropivacaine 0.5%-1cc was performed at each needle location.??after that the needles were removed and Bandaids were applied. ? Upon completion of the injections? needle was? removed and sterile Band-Aids were applied.? The patient tolerated procedure very well. (2) Muscle spasm of back: Code(s): M62.830 - Muscle spasm of back Category: Medical (3) Sacroiliac joint pain: Code(s): M53.3 - Sacrococcygeal disorders, not elsewhere classified Category: Medical (4) Lumbar degenerative disc disease: Code(s): M51.36 - Other intervertebral disc degeneration, lumbar region Category: Medical (5) Lumbosacral spondylosis: Code(s): M47.817 - Spondylosis without myelopathy or radiculopathy, lumbosacral region Category: Medical (6) Intractable low back pain: Code(s): M54.59 - Other low back pain Category: Medical (7) 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 For ongoing axial low back pain will schedule diagnostic bilateral L3-L4 DR L5 medial branch blocks with local, oral Ativan and fluoroscopy. If she has significant relief from the diagnostic blocks for her axial low back pain, will consider either therapeutic injections or RFA depending on her preference. Patient is not candidate for Sprint PNS due to BMI>40. Patient continues to loose weight but reports walking capacity and daily physical activity is significantly limited due to low back pain. [place] Placard application signed at patient's request today. Patient is tolerating gabapentin at bedtime and would like to increase it to BID. Continue to monitor for any side effects. All questions and concerns have been answered and patient agreed with the plan. Follow up after injections and sooner as needed. Orders: Orders FL guidance in treatment room Today M47.817 - Spondylosis without myelopathy or radiculopathy, lumbosacral region Coding Level of Care Code Procedure Only Diagnoses Fibromyalgia M79.7 Muscle spasm of back M62.830 Sacroiliac joint pain M53.3 Lumbar degenerative disc disease M51.36 Lumbosacral spondylosis M47.817 Intractable low back pain M54.59 Sacralization of lumbar vertebra Q76.49
[2024-02-03 10:59] VITALS: BP 130/70; PULSE 81; RESP 16; O2SAT 97; BMI 44.5
[2024-02-03 11:04] VITALS: BP 120/82; PULSE 88; RESP 16; O2SAT 98
== END 2024-02-03 11:21 | disposition home or self-care (01) ==
LOC: HO.PMCPRC 09:31
PROVIDERS: PCP Pediatrics; Visit Provider Anesthesiology
DX: M51.36 Other intervertebral disc degeneration, lumbar region (principal); M79.7 Fibromyalgia; M62.830 Muscle spasm of back; M53.3 Sacrococcygeal disorders, not elsewhere classified; M47.817 Spondylosis without myelopathy or radiculopathy, lumbosacral region; M54.59 Other low back pain; Q76.49 Other congenital malformations of spine, not associated with scoliosis
CPT/HCPCS: 64493; 64494

== ENCOUNTER 2024-02-05 11:22 | Outpatient (AMB) | payer OTHER, SELFPAY ==
--- NOTE | 2024-02-05 11:25 | A.OFFVIS_ITS ---
Vital Signs 02/05/24 11:28 Height 5 ft 7 in Weight 282 lb BMI 44.2 BP 129/83 Blood Pressure Location Lt brachial Position Sitting Pulse 94 Pulse Source Pulse Oximeter Pulse Oximetry (%) 100 Oxygen Delivery Method Room Air Intake Visit Reasons: s/p maggi Dx L3-L4-DR-L5 MBB Intake Note: Pain today 7/10 Process Treater Required: No Accompanied by: Self / Same As Patient Allergies sulfadiazine Adverse Reaction (Intermediate, Verified 02/05/24 11:29) Anaphylaxis HPI Comments Details: Patient presents today to assess response to Bilateral Diagnostic L3-L4-DR-L5 MBB injections on 02/03/[address] Brown. Patient reports 0% pain relief since procedure without any improvement in her functioning, range of motion, mobility or sleep. Patient reports increased pain during 6 hours after injections while bending, doing laundry, dishes and vacuuming. Pain slightly subsided 10 hours after injections when she was relaxing after taking tizanidine. She rates pain intensity 7-8/10, worse in the morning and ADLs and most severe with bending or flexing forward indicating a discogenic source. She also experiences intermittent left sided radicular with prolonged walking. Patient reports mild relief of left sided pain consistent wi th left SIJ localized tenderness and positive provocative testing. Denies any recent cough, cold, infection, fever, any significant changes in her medical history, medications or recent hospitalizations. Past Procedures: 02/03/24: Bilateral Diagnostic L3-L4-DR-L5 MBB-0% pain relief Oswestry Low Back Disability=28 (severe disability) PRIOR: Patient is a pleasant 48 year old female with history of seronegative RA on long-term methotrexate, polyarthralgia, cervical and lumbar DDD, left knee surgery (reconstructive for patella injury) and fibromyalgia, presents today for initial evaluation of chronic lower back pain with left sided sciatica. She was initilly seen in our office [address] Marie for neck pain. Denies any recent trauma, injury or falls. Back pain is axial and also radiates to left lower extremity in L5-S1 distribution with associated numbness, tingling and burning in her lower back. Patient also has widespread body pain with multiple tender points consistent with fibromyalgia. Patient reports she wakes up every morning with significant stiffness and pain worsens through the day and night. She has tried physical therapy, massages, chiropractic therapies and therapeutic back injections without improvement in her symptoms or functioning. Ambulates with antalgic gait and reports intermittent left leg weakness. Denies any fever, abdominal or groin pain, bladder or bowel dysfunction, foot drop, or saddle anesthesia. Location Lower back, neck, elbows, left knee, widespread body pain Duration Chronic pain for many years Characteristics of symptom or complaint Aching, shooting, cramping, radiating, burning, stabbing, pulling Aggravating or associated factors Movement, walking, sitting, bending, heel standing, cold weather Relieving factors Heat therapy, Tylenol, Salonpas, NSAID, Methotrexate, tizanidine Treatment PT for neck 2022, for 2019-no improvement, back TPI injection at [facility] PRIOR 09/06/22 Dr. Marie: 46-year-old female presenting with pain in the neck, back, legs, arms, hands that has been ongoing for a long time but has been recently progressively worse in the last 6 months. Referred to us by Rheumatology for evaluation of degenerative disc disease in the cervical spine. Patient describes that her symptoms of polyarticular pain and stiffness have been worsening with increased intensity at morning and night when her pain is rated as 5 to 8/10. 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 She is unable to sleep normally despite trying different pillows for her neck. Pain is described as a constant sharp stabbing sensation that is worse on some days than others. No known exacerbating factor. She has undergone a rheumatologic workup that she states has returned some positive results that she is due to discuss with Dr. Brewer next week. [facility], [facility] Medical History Cervical radiculopathy Thyroid nodule Severe obesity Hidradenitis suppurativa Obstructive sleep apnea PCOS (polycystic ovarian syndrome) Headache Dysphagia GERD (gastroesophageal reflux disease) Allergic rhinitis Surgical History H/O ventral hernia repair Hx of cholecystectomy Hx of section Hx of knee surgery Family History Mother Hyperlipidemia Hypertension Arthritis Father Hyperlipidemia Hypertension Leukemia Cancer of kidney Arthritis Paternal Grandfather Coronary artery disease Maternal Grandfather Type 2 diabetes mellitus Paternal Grandmother Breast cancer Colon cancer Paternal Aunt Breast cancer Social History Household Members: Significant Other and Children Alcohol intake: current Alcohol intake frequency: does not drink Patient Tobacco Use Status: Never used Tobacco Current occupational status: unemployed 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 Morbidly obese. Alert and oriented x3. No acute distress. Mood and affect appropriate. Pleasant. Follows and participates in conversation appropriately. Respiratory effort is unlabored. No cough. Able to transition from sit to stand unassisted. Ambulates with bilaterally normal heel strike and toe off. Back/Spine/Pelvis Other: Limited lumbar ROM due to pain. Mild limping, antalgic gait. Can flex forward to 60-65 degrees and extend to 5-10 degrees before experiencing lumbar pain. Demonstrates 5/5 strength of quadriceps bilaterally as well as flexion/dorsiflexion of bilateral feet against resistance. 2+ pedal pulses bilaterally. Diminished patellar and achilles reflexes bilaterally. Facet loading test positive bilaterally. Watson sign, Yusuf?s, Pelvic compression and Stinchfield tests are positive bilaterally, left>right. No groin pain with I/E hip rotations. Valsalva maneuver negative. Cervical Spine: cervical ROM normal, cervical muscular tenderness, No Cervical spine tenderness and No step off deformity Thoracic/Lumbar Spine: thoracic and lumbar spine normal to inspection, No Thoracic/lumbar spine scar(s), Lasegue's sign positive on the left and diffuse, pain with thoraco-lumbar ROM, paraspinal muscle tenderness on the left greater than right, thoraco-lumbar ROM limited, No thoracic spinal tenderness and lumbar spinal tenderness (L3-S1) Pelvis: buttock tenderness on the left Sacroiliac joints: bilaterally tender to palpation Extrem General: Yes capillary refill normal, Yes no clubbing, cyanosis or edema and Yes no calf tenderness Results Reviewed Results Reviewed: XR SACROILIAC JOINTS 12/01/23 FINDINGS: Bones and soft tissues are normal. No fracture. Alignment is anatomic. Sacroiliac joint spaces are well-maintained without erosions or surrounding sclerosis. There is sacralization of the L5 left transverse process. IMPRESSION: 1. Normal sacroiliac joints. 2. There is sacralization of the L5 left transverse process. XR LUMBOSACRAL SPINE WITH OBLIQUES 12/01/23 CLINICAL INFORMATION: Lumbar radiculopathy. FINDINGS: Vertebral body heights and alignment are normal. The lower thoracic and lumbar disc spaces are well-maintained. No acute fracture or spondylolisthesis is seen. There is multi-level lower thoracic and lumbar endplate arthropathy. The posterior elements are intact. There is facet arthropathy at L5-S1. The paravertebral soft tissues are unremarkable. Herniorrhaphy mesh is seen. There are right upper quadrant surgical clips. IMPRESSION: 1. No acute fracture or spondylolisthesis is seen. 2. The lower thoracic and lumbar disc spaces are well-maintained. 3. There is multi-level lower thoracic and lumbar degenerative facet arthropathy. 4. There is facet arthropathy at L5-S1. Assessment & Plan Assessment & Plan (1) Lumbar radiculopathy: Code(s): M54.16 - Radiculopathy, lumbar region Category: Medical (2) Lumbar degenerative disc disease: Code(s): M51.36 - Other intervertebral disc degeneration, lumbar region Category: Medical (3) Sacralization of lumbar vertebra: Comment: left L5 Code(s): Q76.49 - Other congenital malformations of spine, not associated with scoliosis Category: Medical (4) Vertebrogenic low back pain: Code(s): M54.51 - Vertebrogenic low back pain Category: Medical (5) Muscle spasm of back: Code(s): M62.830 - Muscle spasm of back Category: Medical (6) Sacroiliac joint pain: Code(s): M53.3 - Sacrococcygeal disorders, not elsewhere classified Category: Medical Plan Patient is status post diagnostic lumbar medial branch blocks with no pain relief. She does have left sacroiliac joint pain with positive testing. We discussed diagnostic SIJ injection as next steps. However, patient experiences significant discogenic pain with flexing forward and bending and intermittent left sided radicular pain. We will proceed with lumbar spine MRI to assess for neural integrity and compression and follow up on most recent lumbar x-ray findings. Refill provided for tizanidine. Continue gabapentin. Patient will return to the clinic to discuss results of the MRI findings when it is done and consider interventional therapy as indicated. Follow up as needed. Orders: Orders MR lumbar spine wo con Today M51.36 - Other intervertebral disc degeneration, lumbar region, M54.16 - Radiculopathy, lumbar region, M54.51 - Vertebrogenic low back pain, Q76.49 - Other congenital malformations of spine, not associated with scoliosis Medications: Refilled tizanidine 4 mg PO BID 30 days PRN 60 tabs 2RF muscle spasticity M47.817 - Spondylosis without myelopathy or radiculopathy, lumbosacral region, M54.16 - Radiculopathy, lumbar region, M62.830 - Muscle spasm of back Coding Level of Care Code Est Pt Level 4 (48896) Diagnoses Lumbar radiculopathy M54.16 Lumbar degenerative disc disease M51.36 Sacralization of lumbar vertebra Q76.49 Vertebrogenic low back pain M54.51 Muscle spasm of back M62.830 Sacroiliac joint pain M53.3
[2024-02-05 11:28] VITALS: BP 129/83; PULSE 94; O2SAT 100; BMI 44.2
== END 2024-02-05 11:48 | disposition home or self-care (01) ==
PROVIDERS: PCP Pediatrics; Visit Provider Nurse Practitioner Family
DX: M54.16 Radiculopathy, lumbar region (principal); M51.36 Other intervertebral disc degeneration, lumbar region; Q76.49 Other congenital malformations of spine, not associated with scoliosis; M54.51 Vertebrogenic low back pain; M62.830 Muscle spasm of back; M53.3 Sacrococcygeal disorders, not elsewhere classified
CPT/HCPCS: 99214

== ENCOUNTER → 2024-02-05 11:22 | Outpatient (BNVA) | payer OTHER, SELFPAY | PROVIDERS: PCP Pediatrics; Visit Provider Nurse Practitioner Family ==

== ENCOUNTER 2024-02-10 13:13 | Outpatient (AMB) | payer OTHER, SELFPAY ==
--- NOTE | 2024-02-10 13:16 | MHC.OFFVIS ---
Vital Signs 02/10/24 13:19 Height 5 ft 7 in Weight 282 lb BMI 44.2 BP 177/91 H Blood Pressure Location Lt brachial Position Sitting Pulse 91 Pulse Source Pulse Oximeter Pulse Oximetry (%) 99 Oxygen Delivery Method Room Air Intake Visit Reasons: MRI results Intake Note: Pain today 03/17 Admissions Assistant Required: No Accompanied by: Self / Same As Patient Allergies sulfadiazine Adverse Reaction (Intermediate, Verified 02/10/24 13:19) Anaphylaxis HPI Comments Details: Patient presents today to review recent lumbar spine MRI results completed at [facility] on 02/09/24. Patient reports today that lumbar spine MRI was denied by her insurance but due to significant back pain, she paid out of pocket. We will proceed with an appeal for her lumbar spine MRI as her symptoms of intractable low back pain with discogenic source per previous and today's exam findings indicate medical necessity for this. MRI results were reviewed with patient today with concerns for multiple thoracolumbar lesions. We will proceed with MRI of the thoracic and lumbar spine without and with gadolinium contrast for further evaluation as recommended and Oncology referral to rule out neoplastic disease. Previous cervical spine MRI results also were noted through [facility] radiology and noted below. Denies any fever, abdominal or groin pain, bladder or bowel dysfunction or saddle anesthesia. Patient has significant concerns for these findings due to strong positive family history of cancer in her family, including her father, paternal grandmother and paternal aunt. PRIOR: Patient presents today to assess response to Bilateral Diagnostic L3-L4-DR-L5 MBB injections on 02/03/[address] Brown. Patient reports 0% pain relief since procedure without any improvement in her functioning, range of motion, mobility or sleep. Patient reports increased pain during 6 hours after injections while bending, doing laundry, dishes and vacuuming. Pain slightly subsided 10 hours after injections when she was relaxing after taking tizanidine. She rates pain intensity 7-8/10, worse in the morning and ADLs and most severe with bending or flexing forward indicating a discogenic source. She also experiences intermittent left sided radicular with prolonged walking. Patient reports mild relief of left sided pain consistent with left SIJ localized tenderness and positive provocative testing. Denies any recent cough, cold, infection, fever, any significant changes in her medical history, medications or recent hospitalizations. Past Procedures: 02/03/24: Bilateral Diagnostic L3-L4-DR-L5 MBB-0% pain relief Oswestry Low Back Disability=28 (severe disability) PRIOR: Patient is a pleasant 48 year old female with history of seronegative RA on long-term methotrexate, polyarthralgia, cervical and lumbar DDD, left knee surgery (reconstructive for patella injury) and fibromyalgia, presents today for initial evaluation of chronic lower back pain with left sided sciatica. She was initilly seen in our office [address] Marie for neck pain. Denies any recent trauma, injury or falls. Back pain is axial and also radiates to left lower extremity in L5-S1 distribution with associated numbness, tingling and burning in her lower back. Patient also has widespread body pain with multiple tender points consistent with fibromyalgia. Patient reports she wakes up every morning with significant stiffness and pain worsens through the day and night. She has tried physical therapy, massages, chiropractic therapies and therapeutic back injections without improvement in her symptoms or functioning. Ambulates with antalgic gait and reports intermittent left leg weakness. Denies any fever, abdominal or groin pain, bladder or bowel dysfunction, foot drop, or saddle anesthesia. Location Lower back, neck, elbows, left knee, widespread body pain Duration Chronic pain for many years Characteristics of symptom or complaint Aching, shooting, cramping, radiating, burning, stabbing, pulling Aggravating or associated factors Movement, walking, sitting, bending, heel standing, cold weather Relieving factors Heat therapy, Tylenol, Salonpas, NSAID, Methotrexate, tizanidine Treatment PT for neck 2022, for 2019-no improvement, back TPI injection at [facility] Ortho PRIOR 09/06/22 Dr. Marie: 46-year-old female presenting with pain in the neck, back, legs, arms, hands that has been ongoing for a long time but has been recently progressively worse in the last 6 months. Referred to us by Rheumatology for evaluation of degenerative disc disease in the cervical spine. Patient describes that her symptoms of polyarticular pain and stiffness have been worsening with increased intensity at morning and night when her pain is rated as 5 to 8/10. 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 She is unable to sleep normally despite trying different pillows for her neck. Pain is described as a constant sharp stabbing sensation that is worse on some days than others. No known exacerbating factor. She has undergone a rheumatologic workup that she states has returned some positive results that she is due to discuss with Dr. Brewer next week. [facility] Medical History Cervical radiculopathy Thyroid nodule Severe obesity Hidradenitis suppurativa Obstructive sleep apnea PCOS (polycystic ovarian syndrome) Headache Dysphagia GERD (gastroesophageal reflux disease) Allergic rhinitis Surgical History H/O ventral hernia repair Hx of cholecystectomy Hx of section Hx of knee surgery Family History Mother Hyperlipidemia Hypertension Arthritis Father Hyperlipidemia Hypertension Leukemia Cancer of kidney Arthritis Paternal Grandfather Coronary artery disease Maternal Grandfather Type 2 diabetes mellitus Paternal Grandmother Breast cancer Colon cancer Paternal Aunt Breast cancer Social History Household Members: Significant Other and Children Alcohol intake: current Alcohol intake frequency: does not drink Patient Tobacco Use Status: Never used Tobacco Current occupational status: unemployed 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 Alert and oriented x3. Mood and affect appropriate. Follows and participates in conversation appropriately. Respiratory effort is unlabored. No cough. Able to transition from sit to stand unassisted. Ambulates with bilaterally normal heel strike and toe off. Back/Spine/Pelvis Other: Limited lumbar ROM due to pain. Mild limping, antalgic gait. Lumbar extension, flexion forward and extension reproduce moderate-severe pain. Demonstrates 5/5 strength of quadriceps bilaterally as well as flexion/dorsiflexion of bilateral feet against resistance. 2+ pedal pulses bilaterally. Diminished patellar and achilles reflexes bilaterally. Facet loading test positive bilaterally. Watson sign, Yusuf?s and Stinchfield tests are positive bilaterally, left>right. No groin pain with I/E hip rotations. Valsalva maneuver negative. Cervical Spine: cervical ROM normal, cervical muscular tenderness, No Cervical spine tenderness and No step off deformity Thoracic/Lumbar Spine: thoracic and lumbar spine normal to inspection, No Thoracic/lumbar spine scar(s), Lasegue's sign negative, straight leg raise negative bilaterally, pain with thoraco-lumbar ROM, paraspinal muscle tenderness on the left greater than right, thoraco-lumbar ROM limited, thoracic spinal tenderness (mid and lower thoracic) and lumbar spinal tenderness (L3-S1) Pelvis: buttock tenderness on the left Sacroiliac joints: bilaterally tender to palpation Extrem General: Yes capillary refill normal, Yes no clubbing, cyanosis or edema and Yes no calf tenderness Results Reviewed Results Reviewed: MR SPINE LUMBAR without CONTRAST at [facility] 02/09/24 INDICATION: Other congenital malformations of spine, not associated with scoliosis. Other intervertebral disc degeneration, lumbar region. Radiculopathy, lumbar region. Vertebrogenic low back pain. TECHNIQUE: Unenhanced multiplanar, multisequence MR imaging of the lumbar spine. COMPARISON: Not available. FINDINGS: Normal lumbar alignment is demonstrated. Vertebral heights are well maintained. There are multiple ovoid lesions which are seen in several lower thoracic and lumbar vertebral bodies, which have slight increased signal intensity on T1-weighting, moderately increased signal intensity in T2 weighting and have slight increased signal intensity on the STIR sequence, typical for benign vertebral body hemangiomas: One lesion is seen to the right of midline in the T9 vertebral body measuring 0.6 cm dimension. Another lesion is seen to left of midline in the T9 vertebral body measuring 0.5 cm in dimension. One lesion is seen in the T10 vertebral body to the left midline measuring 1 cm in dimension. A lesion is seen to the right of midline in the T11 vertebral body measuring 0.6 cm in dimension. Another lesion is seen in the T11 vertebral body to the left of midline measuring 0.3 cm in dimension. A lesion is seen to the right of midline in the T12 vertebral body measuring 0.6 cm in dimension. Another lesion is seen to the left of midline in the T12 vertebral body measuring 1.9 cm in dimension A lesion is seen to the right of midline in the L1 vertebral body measuring 0.4 cm in dimension. Another lesion is seen in the L2 vertebral body which appears to occupy almost the entire vertebral body except for small unaffected ovoid areas which have decreased signal intensity on T1 and T2 imaging, and slight increased signal intensity on the STIR sequence Conus medullaris is unremarkable. Paraspinal soft tissues and visualized portions of the abdomen and pelvis are unremarkable. At L1-2 there is no significant disc herniation or protrusion. No central canal or neural foraminal stenosis is demonstrated. At L2-3 there is no significant disc herniation or protrusion. There is slight decreased signal intensity in the L2-3 disc on the fluid sensitive sequences, however, which could be due to disc desiccation. No central canal or neural foraminal stenosis is demonstrated. At L3-4 there is no significant disc herniation or protrusion. No central canal or neural foraminal stenosis is demonstrated. At L4-5 there is no significant disc herniation or protrusion. No central canal or neural foraminal stenosis is demonstrated. At L5-S1 there is no significant disc herniation or protrusion. No central canal or neural foraminal stenosis is demonstrated. 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 These are not likely due to other neoplastic lesions. 2.There is, however, an underlying lesion in the L2 vertebral body which appears to occupy almost the entire vertebral body, (which is increased on T1 and T2 weighting and intermediate in signal intensity on the STIR sequence) with a central area which has an atypical signal intensity on the images, being decreased on T1 and T2 weighting and slightly increased on the STIR sequence, which would be either due to atypical hemangioma, or possibly represent an area of other primary or secondary neoplastic disease. 3.MRI of the thoracic and lumbar spine is therefore suggested without and with gadolinium contrast for further evaluation. 4.There is mild disc desiccation at L2-3. 5.The lumbar intervertebral discs are otherwise normal in height, and show no evidence for diffuse disc bulges or disc protrusions, and there is no evidence for neuroforaminal stenosis or central spinal canal stenosis of the lumbar spine. 6.The lower visualized spinal cord and cauda equina region otherwise appear normal. MR CERVICAL SPINE WITHOUT AND WITH CONTRAST 07/08/22 at [facility] CLINICAL INFORMATION: 46-year-old with radiculopathy, cervical region, other specified abnormal immunological findings in serum. Self-reported neck, shoulder, arm and back pain, numbness and tingling in the arms and legs and headaches. Evaluate for spinal compression, signs of MS or tumor. COMPARISON: None FINDINGS: ALIGNMENT: The cervical spine is anatomically aligned. No spondylolisthesis or significant retrolisthesis. CRANIOCERVICAL JUNCTION/C1-C2 ARTICULATIONS: Intact and aligned. VISUALIZED INTRACRANIAL STRUCTURES: Within normal limits. VERTEBRAL BODIES: Normal height. DISC SPACES AND ENDPLATES: The intervertebral disc space heights are well maintained. No significant spondylosis. Endplates appear intact. BONE MARROW: No significant marrow-replacing process or bone marrow edema. No abnormal bone marrow enhancement. C2-C3: No disc herniation or canal stenosis. Minor facet arthrosis noted on the left with mild left-sided foraminal narrowing. C3-C4: Shallow central disc protrusion noted with minimal flattening of the central dural sac without cord impingement or canal stenosis. No significant DJD or neural foraminal stenosis. C4-C5: Shallow central disc protrusion with minimal encroachment on the central dural sac without cord impingement or canal stenosis. No significant DJD or neural foraminal stenosis. C5-C6: Shallow central disc protrusion, with minimal flattening of the central dural sac without cord impingement or canal stenosis. No significant DJD or neural foraminal stenosis. C6-C7: No disc herniation or canal stenosis. [id number]-[id number] facet arthropathy left more than right with mild left-sided neural foraminal stenosis. C7-T1: No disc herniation or canal stenosis. No significant DJD or neural foraminal stenosis. T1-T2: No disc herniation or canal stenosis. Mhsm-oo-rqlbkzhm facet arthrosis noted on the right without significant neural foraminal stenosis. SPINAL CORD: The cervical and visualized upper thoracic spinal cord is normal in morphology, caliber and signal intensity throughout, without focal lesion, edema, syrinx or abnormal enhancement. There is no abnormal leptomeningeal enhancement. Specifically, there is no evidence for MS or other inflammatory changes and no evidence for mass lesion. EXTRACRANIAL SOFT TISSUES: 1.1 cm left thyroid lobe nodule and a 0.9 cm right thyroid lobe nodule. Most likely not clinically significant. No follow-up imaging recommended. (This recommendation is offered as general guidance and does not apply to all patients, such as those with clinical risk factors for thyroid cancer.) There is a 6 mm greatest short axis left lateral retropharyngeal lymph node, which is at the upper limits of normal in size for this location. IMPRESSION: 1. Normal appearance to the spinal cord. No evidence for MS or other inflammatory changes and no evidence for mass lesion or abnormal enhancement. 2. Minor multilevel shallow central disc protrusions without spinal cord impingement or significant canal stenosis. 3. [id number]-[id number] degrees of facet arthropathy as described above, with mild left-sided neural foraminal stenosis at C6-C7 and mild left-sided neural foraminal stenosis at C2-C3. 4. Small thyroid nodules. Most likely not clinically significant. No follow-up imaging recommended. (This recommendation is offered as general guidance and does not apply to all patients, such as those with clinical risk factors for thyroid cancer. XR SACROILIAC JOINTS 12/01/23 FINDINGS: Bones and soft tissues are normal. No fracture. Alignment is anatomic. Sacroiliac joint spaces are well-maintained without erosions or surrounding sclerosis. There is sacralization of the L5 left transverse process. IMPRESSION: 1. Normal sacroiliac joints. 2. There is sacralization of the L5 left transverse process. XR LUMBOSACRAL SPINE WITH OBLIQUES 12/01/23 CLINICAL INFORMATION: Lumbar radiculopathy. FINDINGS: Vertebral body heights and alignment are normal. The lower thoracic and lumbar disc spaces are well-maintained. No acute fracture or spondylolisthesis is seen. There is multi-level lower thoracic and lumbar endplate arthropathy. The posterior elements are intact. There is facet arthropathy at L5-S1. The paravertebral soft tissues are unremarkable. Herniorrhaphy mesh is seen. There are right upper quadrant surgical clips. IMPRESSION: 1. No acute fracture or spondylolisthesis is seen. 2. The lower thoracic and lumbar disc spaces are well-maintained. 3. There is multi-level lower thoracic and lumbar degenerative facet arthropathy. 4. There is facet arthropathy at L5-S1. Assessment & Plan Assessment & Plan (1) Intractable low back pain: Code(s): M54.59 - Other low back pain Category: Medical (2) Vertebrogenic low back pain: Code(s): M54.51 - Vertebrogenic low back pain Category: Medical (3) Lesion of lumbosacral vertebra: Code(s): M89.9 - Disorder of bone, unspecified Category: Medical (4) Lesion of thoracic vertebra: Code(s): M89.9 - Disorder of bone, unspecified Category: Medical (5) Abnormal MRI, lumbar spine: Code(s): R93.7 - Abnormal findings on diagnostic imaging of other parts of musculoskeletal system Category: Medical Plan Lumbar spine MRI reviewed with patient today and noted for multiple lesions are demonstrated in the T9, 10, T11, T12 and L1 vertebra. We will proceed with MRI of the thoracic and lumbar spine without and with gadolinium contrast for further evaluation as recommended and Oncology referral to rule out neoplastic disease. Patient request Oncology referral to be placed to [facility]. Referral sent today. All questions and concerns have been answered and patient agreed with the treatment plan. Orders: Orders MR lumbar spine wo/w con Today M54.51 - Vertebrogenic low back pain, M54.59 - Other low back pain, M89.9 - Disorder of bone, unspecified MR thoracic spine wo/w con Today M54.51 - Vertebrogenic low back pain, M54.59 - Other low back pain, M89.9 - Disorder of bone, unspecified Referrals Hematology & Oncology Referral M54.51 - Vertebrogenic low back pain, M54.59 - Other low back pain, M89.9 - Disorder of bone, unspecified, R93.7 - Abnormal findings on diagnostic imaging of other parts of musculoskeletal system Coding Level of Care Code Est Pt Level 4 (66050) Diagnoses Intractable low back pain M54.59 Vertebrogenic low back pain M54.51 Lesion of lumbosacral vertebra M89.9 Lesion of thoracic vertebra M89.9 Abnormal MRI, lumbar spine R93.7
[2024-02-10 13:19] VITALS: BP 177/91; PULSE 91; O2SAT 99; BMI 44.2
== END 2024-02-10 13:48 | disposition home or self-care (01) ==
PROVIDERS: PCP Pediatrics; Visit Provider Nurse Practitioner Family
DX: M54.59 Other low back pain (principal); M54.51 Vertebrogenic low back pain; M89.9 Disorder of bone, unspecified; R93.7 Abnormal findings on diagnostic imaging of other parts of musculoskeletal system
CPT/HCPCS: 99214

== ENCOUNTER → 2024-02-10 13:13 | Outpatient (BNVA) | payer OTHER, SELFPAY | PROVIDERS: PCP Pediatrics; Visit Provider Nurse Practitioner Family ==

== ENCOUNTER 2024-03-01 08:14 | Outpatient (AMB) | payer OTHER, SELFPAY ==
[2024-03-01 08:28] VITALS: BP 128/72; PULSE 78; O2SAT 98; BMI 44.2
--- NOTE | 2024-03-01 08:28 | A.OFFVIS_ITS ---
Vital Signs 03/01/24 08:28 Height 5 ft 7 in Weight 282 lb 3.067 oz BMI 44.2 BP 128/72 Blood Pressure Location Rt brachial Position Sitting Pulse 78 Pulse Source Pulse Oximeter Pulse Oximetry (%) 98 Oxygen Delivery Method Room Air Intake Visit Reasons: RA/CM Intake Note: Patient last seen 11/17/23 presents today for follow up and test results. Coordinator Of Library Services Required: No Accompanied by: Self / Same As Patient Allergies sulfadiazine Adverse Reaction (Intermediate, Verified 03/01/24 08:29) Anaphylaxis Medication List - Last Reconciled 03/01/24 by Laura Brewer MD folic acid 1 mg PO DAILY gabapentin 300 mg PO BID 30 days hydroxyzine HCl 25 mg PO TID PRN lorazepam 1 mg PO ONCE PRN methotrexate sodium 15 mg (6 x 2.5 mg) PO QWEEK sertraline 50 mg PO DAILY tizanidine 4 mg PO BID PRN 30 days HPI Comments Details: 48-year-old female with seronegative RA returns for follow-up. Last visit methotrexate was lowered from 20 mg weekly to 15 mg weekly due to transaminitis. Patient states that she feels a little bit worse with the pain in her hands, elbows, shoulders, she can not straighten her left elbow today. She gets intermittent swelling of her fingers, today she could not put her ring on. Initial history: This is a 46-year-old female with a past medical history of morbid obesity, PCOS, hidradenitis suppurativa, MARIBEL presents for evaluation of multiple joint pains. The condition started in early April of 2022 with relatively abrupt onset of bilateral for head pain, neck pain, bilateral shoulder pain and bilateral pain in her hands and morning stiffness lasting at least 1 hour causing difficultly with her dexterity. She took prednisone unknown dose for a few days by her PCP without any relief. Due to the persistence and severity of symptoms she went to the ER and had a CT head done w [facility] was negative. She followed up with her PCP who is ordering an MRI of her brain for further evaluation due to chronic headache. She continues to have pain in her neck radiating to her shoulders and hands. Patient has been taking Tylenol and NSAIDs for about 2 months without relief, prednisone did not provide any significant relief. She has bilateral hand numbness associated with pallor of her fingertips not associated with cold exposure. She had tried losing bladder or bowel control. She lost about 20 lb over the last 2 3 months unintentionally. She has a couple of cousins with multiple sclerosis [facility] Medical History Cervical radiculopathy Thyroid nodule Severe obesity Hidradenitis suppurativa Obstructive sleep apnea PCOS (polycystic ovarian syndrome) Headache Dysphagia GERD (gastroesophageal reflux disease) Allergic rhinitis Surgical History H/O ventral hernia repair Hx of cholecystectomy Hx of section Hx of knee surgery Family History Mother Hyperlipidemia Hypertension Arthritis Father Hyperlipidemia Hypertension Leukemia Cancer of kidney Arthritis Paternal Grandfather Coronary artery disease Maternal Grandfather Type 2 diabetes mellitus Paternal Grandmother Breast cancer Colon cancer Paternal Aunt Breast cancer Social History Household Members: Significant Other and Children Alcohol intake: current Alcohol intake frequency: does not drink Patient Tobacco Use Status: Never used Tobacco Current occupational status: unemployed 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 Reports back pain, Reports arthralgias and Reports joint swelling Physical Exam Vital Signs: Last Vital Signs Pulse 78 03/01/24 08:28 BP 128/72 03/01/24 08:28 Pulse Ox 98 03/01/24 08:28 Oxygen Delivery Method Room Air 03/01/24 08:28 BMI result Body Mass Index 44.2 Const General: cooperative and healthy appearing Nutritional Appearance: obese morbidly obese Orientation/consciousness: patient oriented x3 Limitations: no limitations HEENT Head: Yes normocephalic and Yes atraumatic Mouth: Normal oral and palatal mucosa present Resp Effort & Inspection: normal respiratory effort and able to speak in complete s entences Cardio Rate: regular rate Rhythm: regular rhythm Skin General skin exam: no rashes or lesions noted Neuro General: patient oriented x3 Extrem Other: Normal nailfold capillaroscopy Right hand: Mildly tender tender wrist, pain with full flexion and extension of her wrist, right 4th and 5th MCP tenderness without swelling, mild tenderness of her PIPs. Positive MCP squeeze test Left hand : Tender wrist, pain with flexion and extension of her wrist. Tenderness to palpation of her 3rd MCP and 3rd and 4th PIP is. Positive MCP squeeze test Mild left elbow warmth and noticeable pain with left elbow extension Left knee crepitus No DIP tenderness bilaterally No ankle swelling or tenderness Negative MTP squeeze test Normal nailfold capillaroscopy Results Reviewed Results Reviewed: left hand MRI 08/2022 Impression: Normal hand MRI. No findings to suggest inflammatory arthropathy Seronegative RA panel 08/2022 Anti-CEP1 50 (moderate positive) Anti Sa negative Anti carbamylated P 28 (<20) 14-3-3 negative Assessment & Plan Assessment & Plan (1) Rheumatoid arthritis: Comment: seroneg dx 06/30 (++CEP, +cabamylated P) Prednisone ineffective MTX 06/30 effective lowered from 20 to 15 mg 11/2023 d.t. transaminitis Code(s): M06.9 - Rheumatoid arthritis, unspecified Category: Medical Qualifiers: Rheumatoid arthritis location: multiple sites Rheumatoid factor pres ence: without rheumatoid factor Qualified Code(s): M06.09 - Rheumatoid arthritis without rheumatoid factor, multiple sites Plan: This is a 48-year-old female with seronegative RA who returns for follow-up. Doing a little worse since methotrexate was lowered from 20 mg to 15 mg weekly. Continues to have a few tender joints, 1 swollen joint today Discussed risks and benefits of hydroxychloroquine. 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 Transaminitis resolved when methotrexate was lowered to 15 mg weekly Patient rarely drinks alcohol. Discussed teratogenic effects of methotrexate on fetus. She has PCOS and got 6 times after 12 rounds of IVF and has 1 child. She uses condoms regul gomez with her . (3) Long-term use of hydroxychloroquine: Code(s): Z79.899 - Other [facility] (current) drug therapy Category: Medical Plan: Discussed risk of retinopathy associated with hydroxychloroquine. Advised patient to follow-up with her staff internist office based only Plan I spent 26 minutes reviewing patient's chart, evaluating patient, ordering diagnostic workup, counseling patient and documenting in the chart Orders: Orders Complete Blood Count Auto Diff 3 Months M06.09 - Rheumatoid arthritis without rheumatoid factor, multiple sites, Z79.631 - retirement (current) use of antimetabolite agent Comprehensive Met. Panel 3 Months M06.09 - Rheumatoid arthritis without rheumatoid factor, multiple sites, Z79.631 - retirement (current) use of antimetabolite agent Erythrocyte Sedimentation Rate 3 Months M06.09 - Rheumatoid arthritis without rheumatoid factor, multiple sites, Z79.631 - retirement (current) use of antimetabolite agent C Reactive Protein 3 Months M06.09 - Rheumatoid arthritis without rheumatoid factor, multiple sites, Z79.631 - retirement (current) use of antimetabolite agent Medications: New hydroxychloroquine 200 mg PO BID 180 tabs 0RF Refilled methotrexate sodium 15 mg (6 x 2.5 mg) PO QWEEK 72 tabs 0RF folic acid 1 mg PO DAILY 90 tabs 1RF Coding Level of Care Code Est Pt Level 4 (96551) Complex EM visit Add On G2211 Diagnoses Rheumatoid arthritis of multiple sites with negative rheumatoid factor M06. Rheumatoid arthritis location: multiple sites Rheumatoid factor presence: without rheumatoid factor retirement methotrexate user Z79.631 Long-term use of hydroxychloroquine Z79.899
== END 2024-03-01 08:42 | disposition home or self-care (01) ==
PROVIDERS: PCP Pediatrics; Visit Provider Student in an Organized Health Care Education/Training Program
DX: M06.09 Rheumatoid arthritis without rheumatoid factor, multiple sites (principal); Z79.631 Long term (current) use of antimetabolite agent; Z79.899 Other long term (current) drug therapy
CPT/HCPCS: 99214; G2211

== ENCOUNTER → 2024-03-01 08:14 | Outpatient (BNVA) | payer OTHER, SELFPAY | PROVIDERS: PCP Pediatrics; Visit Provider Student in an Organized Health Care Education/Training Program ==

== ENCOUNTER 2024-05-26 08:12 | Outpatient (REF) | payer OTHER, SELFPAY ==
[2024-05-26 10:19] LABS: MANUAL DIFF FLAG NO
[2024-05-26 10:26] LABS: Basophils Absolute Auto 0.1 X10*3/uL (0.0-0.2); Basophils Percent Auto 0.7 % (0-2); Eosinophils Absolute Auto 0.1 X10*3/uL (0.0-0.4); Eosinophils Percent Auto 1.9 % (0-4); Hematocrit 42.2 % (37.0-47.0); Hemoglobin 14.2 g/dl (12.0-16.0); Imm Gran Abs Auto 0.01 X10*3/uL (0.00-0.03); Imm Gran Pct Auto 0.1 % (0.0-0.4); Lymphocytes Absolute Auto 1.7 X10*3/uL (1.2-4.9); Lymphocytes Percent Auto 23.3 % (20-40); Mean Corpuscular HGB Conc 33.6 g/dl (31.0-35.0); Mean Corpuscular Hemoglobin 29.6 pg (27.0-33.0); Mean Corpuscular Volume 87.9 fL (80.0-98.0); Mean Platelet Volume 11.2 fL (9.4-12.3); Monocytes Absolute Auto 0.5 X10*3/uL (0.1-1.2); Monocytes Percent Auto 6.5 % (2-11); Neutrophils Absolute Auto 4.9 x10*3/uL (2.0-8.3); Neutrophils Percent Auto 67.5 % (45-73); Platelet Count 345 X10*3/uL (160-400); Red Cell Distribution Width 13.7 % (11.0-16.0); White Blood Count 7.3 X10*3/uL (4.8-10.8)
[2024-05-26 10:49] LABS: Alanine Aminotransferase 25 U/L (0-31); Albumin Level 4.2 g/dL (3.5-5.0); Alkaline Phosphatase 68 U/L (39-117); Anion Gap 10 (12-20); Aspartate Amino Transferase 17 U/L (5-31); Bilirubin Total 0.9 mg/dL (0.0-1.0); Blood Urea Nitrogen 12 mg/dL (9-16); C Reactive Protein 0.56 mg/dL (< or = 0.50); Calcium 9.2 mg/dL (8.4-10.2); Carbon Dioxide 27 mmol/L (22-29); Chloride 107 mmol/L (96-108); Estimated Glomerular Filt Rate > 60; Glucose Random 122 mg/dL (60-115); Potassium 3.9 mmol/L (3.3-5.1); Sodium 140 mmol/L (135-145); Total Protein 7.2 g/dL (6.5-8.0)
[2024-05-26 11:04] LABS: Erythrocyte Sedimentation Rate 7 MM/HR (0-20)
== END 2024-05-26 08:13 | disposition home or self-care (01) ==
LOC: HO.HMGCLDS 08:12
PROVIDERS: PCP Pediatrics; Visit Provider Student in an Organized Health Care Education/Training Program
DX: Z79.631 Long term (current) use of antimetabolite agent (principal); M06.09 Rheumatoid arthritis without rheumatoid factor, multiple sites
CPT/HCPCS: 36415; 80053; 85025; 85652; 86140

== ENCOUNTER 2024-06-02 09:57 | Outpatient (AMB) | payer OTHER, SELFPAY ==
[2024-06-02 10:00] VITALS: BP 126/74; PULSE 81; O2SAT 98; BMI 43.2
--- NOTE | 2024-06-02 10:00 | MHC.OFFVIS ---
Vital Signs 06/02/24 10:00 Height 5 ft 7 in Weight 275 lb 9.245 oz BMI 43.2 BP 126/74 Blood Pressure Location Lt brachial Position Sitting Pulse 81 Pulse Source Pulse Oximeter Pulse Oximetry (%) 98 Oxygen Delivery Method Room Air Intake Visit Reasons: RA Intake Note: Patient presents for follow up today on RA and lab review, last seen by Dr. Brewer on 03/01/24. Allergies hydroxychloroquine Adverse Reaction (Intermediate, Verified 06/02/24 10:23) Palpitations sulfadiazine Adverse Reaction (Intermediate, Verified 06/02/24 10:01) Anaphylaxis Medication List - Last Reconciled 06/02/24 by Laura Brewer MD folic acid 1 mg PO DAILY gabapentin 300 mg PO BID 30 days hydroxychloroquine 200 mg PO BID hydroxyzine HCl 25 mg PO TID PRN lorazepam 1 mg PO ONCE PRN methotrexate sodium 15 mg (6 x 2.5 mg) PO QWEEK oxycodone 5 mg PO BID PRN 10 days sertraline 100 mg PO DAILY tizanidine 4 mg PO BID PRN HPI Comments Details: 48-year-old female with seronegative RA returns for follow-up. She remains on methotrexate 15 mg weekly. She started hydroxychloroquine after last visit and discontinued it after 1-2 weeks due to significant palpitations and lightheadedness. She continues to feel about the same. She continues to have 1 or 2 days a week when she would have painful joints. Yesterday she was having bilateral elbow pain, swelling and warmth. She has days when she can not put her rings on. She continues to have neck and lower back pain. Initial history: This is a 46-year-old female with a past medical history of morbid obesity, PCOS, hidradenitis suppurativa, MARIBEL presents for evaluation of multiple joint pains. The condition started in early April of 2022 with relatively abrupt onset of bilateral for head pain, neck pain, bilateral shoulder pain and bilateral pain in her hands and morning stiffness lasting at least 1 hour causing difficultly with her dexterity. She took prednisone unknown dose for a few days by her PCP without any relief. Due to the persistence and severity of symptoms she went to the ER and had a CT head done which was negative. She followed up with her PCP who is ordering an MRI of her brain for further evaluation due to chronic headache. She continues to have pain in her neck radiating to her shoulders and hands. Patient has been taking Tylenol and NSAIDs for about 2 months without relief, prednisone did not provide any significant relief. She has bilateral hand numbness associated with pallor of her fingertips not associated with cold exposure. She had tried losing bladder or bowel control. She lost about 20 lb over the last 2 3 months unintentionally. She has a couple of cousins with multiple sclerosis [facility] Medical History (Updated 06/02/24 @ 10:27 by Laura Brewer MD) Cervical radiculopathy Thyroid nodule Severe obesity Hidradenitis suppurativa Obstructive sleep apnea PCOS (polycystic ovarian syndrome) Headache Dysphagia GERD (gastroesophageal reflux disease) Allergic rhinitis Surgical History H/O ventral hernia repair Hx of cholecystectomy Hx of section Hx of knee surgery Family History Mother Hyperlipidemia Hypertension Arthritis Father Hyperlipidemia Hypertension Leukemia Cancer of kidney Arthritis Paternal Grandfather Coronary artery disease Maternal Grandfather Type 2 diabetes mellitus Paternal Grandmother Breast cancer Colon cancer Paternal Aunt Breast cancer Social History Household Members: Significant Other and Children Alcohol intake: current Alcohol intake frequency: does not drink Patient Tobacco Use Status: Never used Tobacco Current occupational status: unemployed 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 Female Reproductive History Menstrual Total pregnancies: 6 (12 rounds of IVF) Number of Living Children: 1 Ab spontaneous: 5 Review of Systems Musc Reports back pain, Reports arthralgias, Reports joint swelling and Reports stiffness Physical Exam Vital Signs: BMI result Body Mass Index 43.2 Const General: cooperative and healthy appearing Nutritional Appearance: obese morbidly obese Orientation/consciousness: patient oriented x3 Limitations: no limitations HEENT Head: Yes normocephalic and Yes atraumatic Resp Effort & Inspection: normal respiratory effort and able to speak in complete sentences Cardio Rate: regular rate Rhythm: regular rhythm Skin General skin exam: no rashes or lesions noted Neuro General: patient oriented x3 Extrem Other: Normal nailfold capillaroscopy Right hand: No swelling or tenderness, but pain with full flexion and extension of her wrist, no MCP or PIP tenderness today Negative MCP squeeze test Left hand : No swelling or tenderness, pain with flexion and extension of her wrist. Tenderness to palpation of her 3rd MCP and 3rd and 4th PIP is. Negative MCP squeeze test Mild left elbow warmth and noticeable pain with left elbow extension, positive resisted wrist flexion test on the left Positive resisted wrist flexion test on the right Left knee crepitus No DIP tenderness bilaterally No ankle swelling or tenderness Negative MTP squeeze test Normal nailfold capillaroscopy Results Reviewed Results Reviewed: left hand MRI 08/2022 Impression: Normal hand MRI. No findings to suggest inflammatory arthropathy Seronegative RA panel 08/2022 Anti-CEP1 50 (moderate positive) Anti Sa negative Anti carbamylated P 28 (<20) 14-3-3 negative Assessment & Plan Assessment & Plan (1) Rheumatoid arthritis: Comment: seroneg dx 06/30 (++CEP, +cabamylated P) Prednisone ineffective MTX 06/30 effective lowered from 20 to 15 mg 11/2023 d.t. transaminitis HCQ 02/2024 DC 03/2024 d.t. palpitations Code(s): M06.9 - Rheumatoid arthritis, unspecified Category: Medical Qualifiers: Rheumatoid arthritis location: multiple sites Rheumatoid factor presence: without rheumatoid factor Qualified Code(s): M06.09 - Rheumatoid arthritis without rheumatoid factor, multiple sites Plan: This is a 48-year-old female with seronegative RA who returns for follow-up. She remains on methotrexate 15 mg p.o. weekly. She continues to have multiple tender joints. Continues to have flare-ups. We will need to add DMARDs Discussed risks and benefits of TNF inhibitors. Patient agreed to proceed. 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 Transaminitis resolved when methotrexate was lowered to 15 mg weekly Patient rarely drinks alcohol. Discussed teratogenic effects of methotrexate on fetus. She has PCOS and got 6 times after 12 rounds of IVF and has 1 child. She uses condoms regularly with her . (3) High risk medication use: Code(s): Z79.899 - Other [facility] (current) drug therapy Category: Medical Plan: Side effects of Enbrel were discussed with the patient in detail including increased risk of infection, demyelinating disease, reactivation of latent TB, possible increased risk of solid and skin tumors. Patient fully aware. Advised patient to seek medical care [facility] if patient has an infection and advised patient to stop the medication until the infection is resolved. 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
== END 2024-06-02 10:22 | disposition home or self-care (01) ==
PROVIDERS: PCP Pediatrics; Visit Provider Student in an Organized Health Care Education/Training Program
DX: M06.09 Rheumatoid arthritis without rheumatoid factor, multiple sites (principal); Z79.631 Long term (current) use of antimetabolite agent; Z79.899 Other long term (current) drug therapy
CPT/HCPCS: 99214

== ENCOUNTER → 2024-06-02 09:57 | Outpatient (BNVA) | payer OTHER, SELFPAY | PROVIDERS: PCP Pediatrics; Visit Provider Student in an Organized Health Care Education/Training Program ==

== ENCOUNTER 2024-10-19 11:35 | Outpatient (REF) | payer OTHER, SELFPAY ==
[2024-10-19 13:09] LABS: MANUAL DIFF FLAG NO
[2024-10-19 13:23] LABS: Basophils Absolute Auto 0.1 X10*3/uL (0.0-0.2); Basophils Percent Auto 0.7 % (0-2); Eosinophils Absolute Auto 0.1 X10*3/uL (0.0-0.4); Eosinophils Percent Auto 1.4 % (0-4); Hematocrit 41.7 % (37.0-47.0); Hemoglobin 14.2 g/dl (12.0-16.0); Imm Gran Abs Auto 0.03 X10*3/uL (0.00-0.03); Imm Gran Pct Auto 0.4 % (0.0-0.4); Lymphocytes Absolute Auto 2.2 X10*3/uL (1.2-4.9); Lymphocytes Percent Auto 26.2 % (20-40); Mean Corpuscular HGB Conc 34.1 g/dl (31.0-35.0); Mean Corpuscular Hemoglobin 29.7 pg (27.0-33.0); Mean Corpuscular Volume 87.2 fL (80.0-98.0); Mean Platelet Volume 10.9 fL (9.4-12.3); Monocytes Absolute Auto 0.5 X10*3/uL (0.1-1.2); Monocytes Percent Auto 6.2 % (2-11); Neutrophils Absolute Auto 5.4 x10*3/uL (2.0-8.3); Neutrophils Percent Auto 65.1 % (45-73); Platelet Count 375 X10*3/uL (160-400); Red Blood Count 4.78 X10*6/uL (4.20-5.50); Red Cell Distribution Width 13.2 % (11.0-16.0); White Blood Count 8.3 X10*3/uL (4.8-10.8)
[2024-10-19 14:00] LABS: Erythrocyte Sedimentation Rate 7 MM/HR (0-20)
[2024-10-19 14:08] LABS: Alanine Aminotransferase 29 U/L (0-31); Albumin Level 4.1 g/dL (3.5-5.0); Alkaline Phosphatase 72 U/L (39-117); Anion Gap 9 (12-20); Aspartate Amino Transferase 28 U/L (5-31); Bilirubin Total 0.6 mg/dL (0.0-1.0); Blood Urea Nitrogen 10 mg/dL (9-16); C Reactive Protein 0.71 mg/dL (< or = 0.50); Calcium 8.9 mg/dL (8.4-10.2); Carbon Dioxide 26 mmol/L (22-29); Chloride 108 mmol/L (96-108); Estimated Glomerular Filt Rate > 60; Glucose Random 92 mg/dL (60-115); Potassium 4.1 mmol/L (3.3-5.1); Sodium 139 mmol/L (135-145); Total Protein 7.2 g/dL (6.5-8.0)
== END 2024-10-19 11:36 | disposition home or self-care (01) ==
LOC: HO.HMGCLDS 11:35
PROVIDERS: PCP Pediatrics; Visit Provider Student in an Organized Health Care Education/Training Program
DX: M06.09 Rheumatoid arthritis without rheumatoid factor, multiple sites (principal); Z79.631 Long term (current) use of antimetabolite agent
CPT/HCPCS: 36415; 80053; 85025; 85652; 86140

== ENCOUNTER 2024-10-20 08:16 | Outpatient (AMB) | payer OTHER, SELFPAY ==
--- NOTE | 2024-10-20 08:22 | A.OFFVIS_ITS ---
Vital Signs 10/20/24 08:26 Height 5 ft 7 in Weight 288 lb 2.307 oz BMI 45.1 BP 115/72 Blood Pressure Location Rt brachial Position Sitting Pulse 78 Pulse Source Pulse Oximeter Pulse Oximetry (%) 98 Oxygen Delivery Method Room Air Intake Visit Reasons: RA Intake Note: Patient presents for RA. Allergies hydroxychloroquine Adverse Reaction (Intermediate, Verified 10/20/24 08:24) Palpitations sulfadiazine Adverse Reaction (Intermediate, Verified 10/20/24 08:24) Anaphylaxis Medication List - Last Reconciled 10/20/24 by Daria Raza MD duloxetine (Cymbalta) 30 mg PO DAILY folic acid 1 mg PO DAILY gabapentin 300 mg PO BID 30 days hydroxyzine HCl 25 mg PO TID PRN lorazepam 1 mg PO ONCE PRN methotrexate sodium 15 mg (6 x 2.5 mg) PO QWEEK oxycodone 5 mg PO BID PRN 10 days tizanidine 4 mg PO BID PRN HPI Comments Details: Patient is a 49-year-old female with depression, fibromyalgia and seronegative rheumatoid arthritis who presents today for follow up Interval History: Patient last seen 05/[address] Brewer. She was on methotrexate 50 mg p.o. weekly at that but continued to have multiple tender joints and flare-ups. The plan was to start Enbrel Was able to start the Enbrel however only able to take it for a month because her insurance only covered 2700 and she would have to pay $1000 which was not feasible Rheumatologic History: Seroneg dx 06/30 (++CEP, +cabamylated P) Prednisone ineffective MTX 06/30 effective lowered from 20 to 15 mg 11/2023 d.t. transaminitis HCQ 02/2024 DC 03/2024 d.t. palpitations Current Rheumatology Medication(s): Methotrexate 15 mg p.o. weekly Folic acid 1 mg daily Enbrel 50 mg DC weekly [facility] Medical History (Updated 10/20/24 @ 08:46 by Daria Raza MD) Encounter for monitoring of adalimumab therapy Encounter for methotrexate monitoring Cervical radiculopathy Thyroid nodule Severe obesity Hidradenitis suppurativa Obstructive sleep apnea PCOS (polycystic ovarian syndrome) Headache Dysphagia GERD (gastroesophageal reflux disease) Allergic rhinitis Surgical History H/O ventral hernia repair Hx of cholecystectomy Hx of section Hx of knee surgery Family History Mother Hyperlipidemia Hypertension Arthritis Father Hyperlipidemia Hypertension Leukemia Cancer of kidney Arthritis Paternal Grandfather Coronary artery disease Maternal Grandfather Type 2 diabetes mellitus Paternal Grandmother Breast cancer Colon cancer Paternal Aunt Breast cancer Social History Household Members: Significant Other and Children Alcohol intake: current Alcohol intake frequency: does not drink Patient Tobacco Use Status: Never used Tobacco Current occupational status: unemployed 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 Review of Systems Const Details: Review of Systems Constitutional: Denies fever, chills, weight loss ENT: Denies vision changes, eye pain or eye redness, dental caries, dry mouth GI: Denies nausea, vomiting, diarrhea, abdominal pain, change in BM Pulm: Denies SOB, ROGERS, hemoptysis, wheezing Cards: Denies chest pain, palpitations Skin: Denies Raynaud's, rash, nail changes, photosensitivity, INSPECTOR MACHINE PARTS: Denies headaches, weakness, paresthesias, recurrent falls MSK: as per HPI All other systems reviewed and are unremarkable except noted above Physical Exam Vital Signs: BMI result Body Mass Index 45.1 Vital signs reviewed Physical Examination CONSTITUITIONAL Patient alert and cooperative. Well appearing and in no apparent painful distress HEENT Conjunctiva and sclera clear. ?Pupils equal round and reactive to light. ?No lymphadenopathy. ? CHEST/RESPIRATORY SYSTEM Normal respiratory effort and able to speak in complete sentences. ?Clear to auscultation bilaterally. ?No crackles, rales, rhonchi, wheezes heard. CARDIAC SYSTEM Regular rate and rhythm. ?S1 and S2 heard no murmurs. ?Radial pulses intact maggi aterally MSK Hands: ?Good policy and planning manager strength bilaterally. TTP of the MCPs and PIPs of bilateral hands Wrists: ?Full range of motion at the wrists. TTP of bilateral wrists L>R Elbows: Full range of motion without pain. No tenderness, weakness, swelling, increased warmth or erythema. Shoulders: Full active ROM. Pain at the extreme of motion Hips: Full range of motion without pain. Hip bursa: No tenderness to palpation Knees: ?Full range of motion. ?No tenderness, swelling, increased warmth or erythema.?No effusion or crepitations Ankles: Full range of motion. ?No tenderness, swelling, increased warmth or erythema.? Feet: ?Negative squeeze test. ?No tenderness to palpation or swelling of the MTPs. Tender points:?No tenderness to palpation of the bilateral trapezius, supraspinatus, greater trochanters, anterior costochondral junctions, bilateral gluteal areas, bilateral suboccipital muscle insertions SKIN Skin intact without rashes. Results Reviewed Results Reviewed: Laboratory Tests 05/26/24 10/19/24 08:16 11:40 WBC 8.3 RBC 4.78 Hgb 14.2 Hct 41.7 Plt Count 375 ESR 7 Sodium 139 Potassium 4.1 Chloride 108 Carbon Dioxide 26 BUN 10 Creatinine 0.68 Calcium 8.9 Total Bilirubin 0.6 AST 28 ALT 29 Alkaline Phosphatase 72 C-Reactive Protein 0.56 H 0.71 H Assessment & Plan Assessment & Plan (1) Rheumatoid arthritis: Comment: seroneg dx 06/30 (++CEP, +cabamylated P) Prednisone ineffective MTX 06/30 effective lowered from 20 to 15 mg 11/2023 d.t. transaminitis HCQ 02/2024 DC 03/2024 d.t. palpitations Code(s): M06.9 - Rheumatoid arthritis, unspecified Category: Medical Qualifiers: Rheumatoid arthritis location: multiple sites Rheumatoid factor pre sence: without rheumatoid factor Qualified Code(s): M06.09 - Rheumatoid arthritis without rheumatoid factor, multiple sites Plan: #Seronegative RA Patient is a 49-year-old female with seronegative rheumatoid arthritis. Was doing well on Enbrel with improvement in her joint pains however the financial support ran out and she can not afford the 1000 dollar co-pay. We will try [employer] similar to see if her insurance will cover this. If not we may need to try leflunomide 10 mg Plan - D/c Enbrel - Adalimumab - adav 40mg every 2 weeks SC - Methotrexate 15mg weekly PO - Folic acid 1mg daily - Labs today: hepatitis panel and T spot - RTC 3 months - Labs before visit: CBC, CMP, ESR, CRP (2) Encounter for methotrexate monitoring: Code(s): Z51.81 - Encounter for therapeutic drug level monitoring; Z79.631 - correction (current) use of antimetabolite agent Category: Medical Plan: #Long-term Current Use of Methotrexate Discussed with patient the benefits and risks of methotrexate for managing their rheumatic condition Benefits include reduced pain, reduced mortality, maintenance of remission and reduction of flares Risks include oral ulcers, photosensitivity, hepatotoxicity, hematologic toxicity, pneumonitis, flu-like symptoms (especially day after administration), nodulosis, lymphomas ? Limit alcohol and avoid Bactrim ? Monitoring: ?CBC, BMP, LFTs every 3-4 months and hepatitis serologies as needed ? Methotrexate is teratogenic. ?If planning need to discontinue 3 months prior to conception (3) Encounter for monitoring of adalimumab therapy: Code(s): Z51.81 - Encounter for therapeutic drug level monitoring; Z79.620 - correction (current) use of immunosuppressive biologic Category: Medical Plan: #Long-term Use of TNF Inhibitors: Humira biosimilar Discussed with the patient the benefits and risks of TNF inhibitors for the management of the rheumatic condition Benefits include reduce pain, maintenance of remission and reduction of flares as well as ?progression of the disease Risks include injection sites/infusion reactions, serious infections (such as bacterial infections, opportunistic infections), malignancy, delaminating syndromes, autoimmune phenomena, CHF exacerbations, palmar plantar psoriasis and cytopenias Recommended rotating injection sites, and holding medication during and for up t o 1 week after resolution of a febrile illness or open skin wound Plan I spent 40 minutes reviewing the record and labs, taking a history, examining t he patient, discussing the treatment plan and documenting in the medical record Orders: Orders Complete Blood Count Auto Diff 3 Months M06.09 - Rheumatoid arthritis without rheumatoid factor, multiple sites, Z51.81 - Encounter for therapeutic drug level monitoring, Z79.620 - correction (current) use of immunosuppressive biologic, Z79.631 - termite exterminator helper (current) use of antimetabolite agent Comprehensive Met. Panel 3 Months M06.09 - Rheumatoid arthritis without rhe umatoid factor, multiple sites, Z51.81 - Encounter for therapeutic drug level monitoring, Z79.620 - termite exterminator helper (current) use of immunosuppressive biologic, Z79.631 - correction (current) use of antimetabolite agent C Reactive Protein 3 Months M06.09 - Rheumatoid arthritis without rheumatoid factor, multiple sites, Z51.81 - Encounter for therapeutic drug level monitoring, Z79.620 - termite exterminator helper (current) use of immunosuppressive biologic, Z79.631 - correction (current) use of antimetabolite agent Erythrocyte Sedimentation Rate 3 Months M06.09 - Rheumatoid arthritis without rheumatoid factor, multiple sites, Z51.81 - Encounter for therapeutic drug level monitoring, Z79.620 - correction (current) use of immunosuppressive biologic, Z79.631 - correction (current) use of antimetabolite agent Hepatitis A,B,C Profile Today M06.09 - Rheumatoid arthritis without rheumatoid factor, multiple sites, Z51.81 - Encounter for therapeutic drug level monitoring, Z79.620 - correction (current) use of immunosuppressive biologic, Z79.631 - termite exterminator helper (current) use of antimetabolite agent T Spot TB Today M06.09 - Rheumatoid arthritis without rheumatoid factor, multiple sites, Z51.81 - Encounter for therapeutic drug level monitoring, Z79.620 - correction (current) use of immunosuppressive biologic, Z79.631 - correction (current) use of antimetabolite agent Medications: New adalimumab-adaz 40 mg (0.4 mL) subcut Q2W 0.8 mL 5RF M06.09 - Rheumatoid arthritis without rheumatoid factor, multiple sites Refilled methotrexate sodium 15 mg (6 x 2.5 mg) PO QWEEK 72 tabs 1RF M06.09 - Rheumatoid arthritis without rheumatoid factor, multiple sites, Z51.81 - Encounter for therapeutic drug level monitoring, Z79.631 - correction (current) use of antimetabolite agent folic acid 1 mg PO DAILY 90 tabs 1RF Coding Level of Care Code Est Pt Level 5 (77255) Complex EM visit Add On G2211 Diagnoses Rheumatoid arthritis of multiple sites with negative rheumatoid factor M06.09 Rheumatoid arthritis location: multiple sites Rheumatoid factor presence: without rheumatoid factor Encounter for methotrexate monitoring Z51.81; Z79.631 Encounter for monitoring of adalimumab therapy Z51.81; Z79.620
[2024-10-20 08:26] VITALS: BP 115/72; PULSE 78; O2SAT 98; BMI 45.1
== END 2024-10-20 08:51 | disposition home or self-care (01) ==
PROVIDERS: PCP Pediatrics; Visit Provider Student in an Organized Health Care Education/Training Program
DX: M06.09 Rheumatoid arthritis without rheumatoid factor, multiple sites (principal); Z51.81 Encounter for therapeutic drug level monitoring; Z79.631 Long term (current) use of antimetabolite agent; Z79.620 Long term (current) use of immunosuppressive biologic
CPT/HCPCS: 99215

== ENCOUNTER 2024-10-20 08:16 | Outpatient (REF) | payer OTHER, SELFPAY ==
[2024-10-20 12:05] LABS: HBS Num1 0.22 mIU/mL (0-7.99); HBsAGNum1 0.35 S/CO (0.00-0.99); Hepatitis A Antibody IgM 0.14 Index (0-0.79); Hepatitis B Core Antibody Nonreactive (Nonreactive); Hepatitis B Surface Antigen Negative (Negative); ~HepC Num1 0.08 S/CO (0.00-0.79); ~Hepatitis A Antibody IgM Nonreactive (Nonreactive); ~Hepatitis B Surface Antibody NONREACTIVE (Nonreactive); ~Hepatitis C Antibody Nonreactive (Nonreactive)
[2024-10-23 13:18] LABS: TS Negative Control Passed; TS Panel A 0; TS Panel B 0; TS Positive Control Passed; TSpotTB Negative (Negative)
== END 2024-10-20 08:17 | disposition home or self-care (01) ==
LOC: HO.HMGCLDS 08:16
PROVIDERS: PCP Pediatrics; Visit Provider Student in an Organized Health Care Education/Training Program
DX: M06.09 Rheumatoid arthritis without rheumatoid factor, multiple sites (principal); Z51.81 Encounter for therapeutic drug level monitoring; Z79.631 Long term (current) use of antimetabolite agent; Z79.620 Long term (current) use of immunosuppressive biologic
CPT/HCPCS: 36415; 86481; 86704; 86706; 86709; 86803; 87340

== ENCOUNTER 2025-03-19 07:28 | Outpatient (REF) | payer OTHER, SELFPAY ==
[2025-03-19 11:19] LABS: MANUAL DIFF FLAG NO
[2025-03-19 11:33] LABS: Hematocrit 41.2 % (37.0-47.0); Hemoglobin 14.3 g/dl (12.0-16.0); Imm Gran Abs Auto 0.03 X10*3/uL (0.00-0.03); Imm Gran Pct Auto 0.3 % (0.0-0.4); Lymphocytes Absolute Auto 2.3 X10*3/uL (1.2-4.9); Mean Corpuscular HGB Conc 34.7 g/dl (31.0-35.0); Mean Corpuscular Hemoglobin 30.1 pg (27.0-33.0); Mean Corpuscular Volume 86.7 fL (80.0-98.0); NRBC Abs Auto 0.000 X10*3/uL (0.0-0.012); NRBC Pct Auto 0.0 /100WBC (0.0-0.2); Platelet Count 369 X10*3/uL (160-400); Red Blood Count 4.75 X10*6/uL (4.20-5.50); White Blood Count 8.8 X10*3/uL (4.8-10.8)
[2025-03-19 11:52] LABS: Alanine Aminotransferase 44 U/L (0-31); Albumin Level 4.2 g/dL (3.5-5.0); Alkaline Phosphatase 71 U/L (39-117); Anion Gap 10 (12-20); Aspartate Amino Transferase 31 U/L (5-31); Blood Urea Nitrogen 9 mg/dL (9-16); Calcium 8.9 mg/dL (8.4-10.2); Carbon Dioxide 26 mmol/L (22-29); Chloride 107 mmol/L (96-108); Estimated Glomerular Filt Rate > 60; Potassium 4.1 mmol/L (3.3-5.1); Sodium 139 mmol/L (135-145); Total Protein 6.8 g/dL (6.5-8.0)
== END 2025-03-19 07:29 | disposition home or self-care (01) ==
LOC: HO.HMGCLDS 07:28
PROVIDERS: PCP Pediatrics; Visit Provider Student in an Organized Health Care Education/Training Program
DX: M06.09 Rheumatoid arthritis without rheumatoid factor, multiple sites (principal); Z51.81 Encounter for therapeutic drug level monitoring; Z79.620 Long term (current) use of immunosuppressive biologic; Z79.631 Long term (current) use of antimetabolite agent
CPT/HCPCS: 36415; 80053; 85025; 85652; 86140

== ENCOUNTER 2025-03-22 07:43 | Outpatient (AMB) | payer OTHER, SELFPAY ==
--- NOTE | 2025-03-22 07:46 | A.OFFVIS_ITS ---
Vital Signs 03/22/25 08:01 Height 5 ft 7 in Weight 288 lb 9.361 oz BMI 45.2 BP 115/74 Blood Pressure Location Rt brachial Position Sitting Pulse 85 Pulse Source Pulse Oximeter Pulse Oximetry (%) 98 Oxygen Delivery Method Room Air Intake Visit Reasons: follow up RA Intake Note: Patient presents for RA follow up. Patient never took Hyrimoz to much of a co- pay. Allergies hydroxychloroquine Adverse Reaction (Intermediate, Verified 03/22/25 08:01) Palpitations sulfadiazine Adverse Reaction (Intermediate, Verified 03/22/25 08:01) Anaphylaxis Medication List - Last Reconciled 03/22/25 by Daria Raza MD duloxetine (Cymbalta) 30 mg PO DAILY folic acid 1 mg PO DAILY gabapentin 300 mg PO BID 30 days hydroxyzine HCl 25 mg PO TID PRN lorazepam 1 mg PO ONCE PRN methotrexate sodium 15 mg (6 x 2.5 mg) PO QWEEK oxycodone 5 mg PO BID PRN 10 days tizanidine 4 mg PO BID PRN HPI Comments Details: Patient is a 49-year-old female with depression, fibromyalgia and seronegative rheumatoid arthritis who presents today for follow up Interval History: Patient last seen 10/20/24 - Unable to start Enbrel due to insurance issues - Plan was to try humira bio similar Today, - Able to start the humira bio similar - But similar issue with co pay - Did find this medication effective, last dose 4 weeks ago Rheumatologic History: Seroneg dx 06/30 (++CEP, +cabamylated P) Prednisone ineffective MTX 06/30 effective lowered from 20 to 15 mg 11/2023 d.t. transaminitis HCQ 02/2024 DC 03/2024 d.t. palpitations Started Enbrel 05/2024 but only for 1 month due to $1000 co pay (could not afford this) Current Rheumatology Medication(s): Methotrexate 15 mg p.o. weekly Folic acid 1 mg daily Adalimumab 40mg SC every 2 weeks [facility] Medical History (Updated 10/20/24 @ 08:46 by Daria Raza MD) Encounter for monitoring of adalimumab therapy Encounter for methotrexate monitoring Cervical radiculopathy Thyroid nodule Severe obesity Hidradenitis suppurativa Obstructive sleep apnea PCOS (polycystic ovarian syndrome) Headache Dysphagia GERD (gastroesophageal reflux disease) Allergic rhinitis Surgical History H/O ventral hernia repair Hx of cholecystectomy Hx of section Hx of knee surgery Family History Mother Hyperlipidemia Hypertension Arthritis Father Hyperlipidemia Hypertension Leukemia Cancer of kidney Arthritis Paternal Grandfather Coronary artery disease Maternal Grandfather Type 2 diabetes mellitus Paternal Grandmother Breast cancer Colon cancer Paternal Aunt Breast cancer Social History Household Members: Significant Other and Children Alcohol intake: current Alcohol intake frequency: does not drink Patient Tobacco Use Status: Never used Tobacco Current occupational status: unemployed 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 Review of Systems Const Details: Review of Systems Constitutional: Denies fever, chills, weight loss ENT: Denies vision changes, eye pain or eye redness, dental caries, dry mouth GI: Denies nausea, vomiting, diarrhea, abdominal pain, change in BM Pulm: Denies SOB, ROGERS, hemoptysis, wheezing Cards: Denies chest pain, palpitations Skin: Denies Raynaud's, rash, nail changes, photosensitivity, RECOVERY OPERATOR HELPER: Denies headaches, weakness, paresthesias, recurrent falls MSK: as per HPI All other systems reviewed and are unremarkable except noted above Physical Exam Vital signs reviewed Physical Examination CONSTITUITIONAL Patient alert and cooperative. Well appearing and in no apparent painful distress HEENT Conjunctiva and sclera clear. ?Pupils equal round and reactive to light. ?No lymphadenopathy. ? CHEST/RESPIRATORY SYSTEM Normal respiratory effort and able to speak in complete sentences. ?Clear to auscultation bilaterally. ?No crackles, rales, rhonchi, wheezes heard. CARDIAC SYSTEM Regular rate and rhythm. ?S1 and S2 heard no murmurs. ?Radial pulses intact bilaterally MSK Hands: ?Good general manager road production strength bilaterally. TTP of the MCPs and PIPs of bilateral hands Wrists: ?Full range of motion at the wrists. TTP of bilateral wrists L>R Elbows: Full range of motion without pain. No tenderness, weakness, swelling, increased warmth or erythema. TTP bilateral lateral epicondyles Shoulders: Full active ROM. Pain at the extreme of motion Hip bursa: Tenderness to palpation Knees: ?Full range of motion. ?No tenderness, swelling, increased warmth or erythema.?No effusion or crepitations Ankles: Full range of motion. ?No tenderness, swelling, increased warmth or erythema.? Feet: ?Negative squeeze test. ?No tenderness to palpation or swelling of the MTPs. Tender points:?No tenderness to palpation of the bilateral trapezius, supraspinatus, greater trochanters, anterior costochondral junctions, bilateral gluteal areas, bilateral suboccipital muscle insertions SKIN Skin intact without rashes. Results Reviewed Results Reviewed: Laboratory Tests 10/19/24 03/19/25 11:40 08:03 WBC 8.8 RBC 4.75 Hgb 14.3 Hct 41.2 Plt Count 369 ESR 7 Sodium 139 Potassium 4.1 Chloride 107 Carbon Dioxide 26 BUN 9 Creatinine 0.62 AST 28 31 ALT 29 44 H C-Reactive Protein 0.71 H 0.41 Rheumatology Labs 06/21/22 11:39 Rheumatoid Factor < 15.0 Cycl Citrul Peptide IgG <16 LUDY Screen NEGATIVE SS-A/Ro Antibody <1.0 NEG SS-B/La Antibody <1.0 NEG Sm (Sloan) Antibody <1.0 NEG SM/BOWLING FLOOR MANAGER IgG Antibody <1.0 NEG Scl-70 Scleroderma Ab <1.0 NEG Double Strand DNA Ab 1 Centromere B Antibody <1.0 NEG Beta-2-GPI IgG Ab <2.0 Beta-2-GPI IgA Ab <2.0 Beta-2-GPI IgM Ab 6.2 Thyroglobulin Antibody <1 Thyroid Peroxidase Ab 1 Anti-Cardiolipin IgG Ab <2.0 Anti-Cardiolipin IgM Ab 5.2 Complement C3 165 Complement C4 30 Infectious Labs 10/20/24 09:24 Hepatitis A IgM Ab Nonreactive Hep Bs Antigen Negative Hep Bs Antibody NONREACTIVE Hep B Core Total Ab Nonreactive Hepatitis C Ab (EIA) Nonreactive TB Test (T-Spot) Com Negative Assessment & Plan Assessment & Plan (1) Rheumatoid arthritis: Comment: seroneg dx 06/30 (++CEP, +cabamylated P) Prednisone ineffective MTX 06/30 effective lowered from 20 to 15 mg 11/2023 d.t. transaminitis HCQ 02/2024 DC 03/2024 d.t. palpitations Code(s): M06.9 - Rheumatoid arthritis, unspecified Category: Medical Qualifiers: Rheumatoid arthritis location: multiple sites Rheumatoid factor presence: without rheumatoid factor Qualified Code(s): M06.09 - Rheumatoid arthritis without rheumatoid factor, multiple sites Plan: #Seronegative RA Patient is a 49-year-old female with seronegative rheumatoid arthritis. Again was doing well on HUmira bio similar with improvement in her joint pains however the financial support ran out and she can not afford the co-pay. Since there was improvement in her inflammatory markers and joint pain, I think TNF inihibitors are a good choice for her. Will proceed with Simponi aria infusions Plan - D/c Adalimumab - adav 40mg every 2 weeks SC - Start simponi infusions 2mg/kg every weeks x 2 doses then every 8 weeks - Methotrexate 15mg weekly PO - Folic acid 1mg daily - Check CMP in 4 weeks if persistent transaminitis will need to decrease MTx dose - RTC 4 months - Labs before visit: CBC, CMP, ESR, CRP (2) Encounter for methotrexate monitoring: Code(s): Z51.81 - Encounter for therapeutic drug level monitoring; Z79.631 - detention (current) use of antimetabolite agent Category: Medical Plan: #Long-term Current Use of Methotrexate Discussed with patient the benefits and risks of methotrexate for managing their rheumatic condition Benefits include reduced pain, reduced mortality, maintenance of remission and reduction of flares Risks include oral ulcers, photosensitivity, hepatotoxicity, hematologic toxicity, pneumonitis, flu-like symptoms (especially day after administration), nodulosis, lymphomas ? Limit alcohol and avoid Bactrim ? Monitoring: ?CBC, BMP, LFTs every 3-4 months and hepatitis serologies as needed ? Methotrexate is teratogenic. ?If planning need to discontinue 3 months prior to conception (3) Encounter for monitoring of adalimumab therapy: Code(s): Z51.81 - Encounter for therapeutic drug level monitoring; Z79.620 - detention (current) use of immunosuppressive biologic Category: Medical Plan: #Long-term Use of TNF Inhibitors: Humira biosimilar Discussed with the patient the benefits and risks of TNF inhibitors for the management of the rheumatic condition Benefits include reduce pain, maintenance of remission and reduction of flares as well as ?progression of the disease Risks include injection sites/infusion reactions, serious infections (such as bacterial infections, opportunistic infections), malignancy, delaminating syndromes, autoimmune phenomena, CHF exacerbations, palmar plantar psoriasis and cytopenias Recommended rotating injection sites, and holding medication during and for up to 1 week after resolution of a febrile illness or open skin wound Plan I spent 30 minutes reviewing the record and labs, taking a history, examining the patient, discussing the treatment plan and documenting in the medical record Orders: Orders Complete Blood Count Auto Diff 4 Months M06.09 - Rheumatoid arthritis without rheumatoid factor, multiple sites Comprehensive Met. Panel 4 Weeks R74.01 - Elevation of levels of liver transami nase levels Comprehensive Met. Panel 4 Months M06.09 - Rheumatoid arthritis without rheumatoid factor, multiple sites C Reactive Protein 4 Months M06.09 - Rheumatoid arthritis without rheumatoid factor, multiple sites Erythrocyte Sedimentation Rate 4 Months M06.09 - Rheumatoid arthritis without rheumatoid factor, multiple sites Referrals Infusion Center Notification M06.09 - Rheumatoid arthritis without rheumatoid factor, multiple sites Coding Level of Care Code Est Pt Level 4 (10008) Complex EM visit Add On G2211 Diagnoses Rheumatoid arthritis of multiple sites with negative rheumatoid factor M06.09 Rheumatoid arthritis location: multiple sites Rheumatoid factor presence: without rheumatoid factor Encounter for methotrexate monitoring Z51.81; Z79.631 Encounter for monitoring of adalimumab therapy Z51.81; Z79.620
[2025-03-22 08:01] VITALS: BP 115/74; PULSE 85; O2SAT 98; BMI 45.2
== END 2025-03-22 08:28 | disposition home or self-care (01) ==
LOC: HO.RHE 07:44
PROVIDERS: PCP Pediatrics; Visit Provider Student in an Organized Health Care Education/Training Program
DX: M06.09 Rheumatoid arthritis without rheumatoid factor, multiple sites (principal); Z51.81 Encounter for therapeutic drug level monitoring; Z79.631 Long term (current) use of antimetabolite agent; Z79.620 Long term (current) use of immunosuppressive biologic
CPT/HCPCS: 99214

== ENCOUNTER 2025-03-25 14:28 | Outpatient (AMB) | payer OTHER, SELFPAY ==
--- NOTE | 2025-03-25 14:31 | MHC.OFFVIS ---
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 The hip pain has been persistent for years, with recent exacerbation, and is described as severe, often reaching a pain level of 7-8/10. The pain radiates to the left buttock and groin, and is aggravated by activities such as lifting the leg, walking, and bending. Denies any recent trauma, injury or falls. The patient has a history of seronegative rheumatoid arthritis and fibromyalgia, for which she is under Rheumatology care. She is currently on methotrexate and has been switched from Humira to Simponi due to cost issues. She also takes gabapentin and tizanidine for pain management, with occasional use of oxycodone for severe pain episodes. - Onset: Persistent for years with recent exacerbation - Quality: Severe, reaching a pain level of seven to eight out of ten - Location: Left hip, radiating to the left buttock, lateral hip and groin - Exacerbating factors: Lifting the leg, walking, bending - Interference: Difficulty lifting leg, walking, bending, and requires use of a cane or walker for long distances - Affect: Pain significantly impacts daily activities and mobility - Analgesia: Current medications include methotrexate, gabapentin, tizanidine, and occasional oxycodone - Adverse Effects: No specific adverse effects reported from current medications - Activities of Daily Living: Pain interferes with walking, bending, and requires assistive devices for mobility - Aberrant Drug Related Behaviors: No aberrant behaviors reported PRIOR 02/10/24: Patient presents today to review recent lumbar spine MRI results completed at [facility] on 02/09/24. Patient reports today that lumbar spine MRI was denied by her insurance but due to significant back pain, she paid out of pocket. We will proceed with an appeal for her lumbar spine MRI as her symptoms of intractable low back pain with discogenic source per previous and today's exam findings indicate medical necessity for this. MRI results were reviewed with patient today with concerns for multiple thoracolumbar lesions. We will proceed with MRI of the thoracic and lumbar spine without and with gadolinium contrast for further evaluation as recommended and Oncology referral to rule out neoplastic disease. Previous cervical spine MRI results also were noted through [facility] radiology and noted below. Denies any fever, abdominal or groin pain, bladder or bowel dysfunction or saddle anesthesia. Patient has significant concerns for these findings due to strong positive family history of cancer in her family, including her father, paternal grandmother and paternal aunt. PRIOR: Patient presents today to assess response to Bilateral Diagnostic L3-L4-DR-L5 MBB injections on 02/03/[address] Brown. Patient reports 0% pain relief since procedure without any improvement in her functioning, range of motion, mobility or sleep. Patient reports increased pain during 6 hours after injections while bending, doing laundry, dishes and vacuuming. Pain slightly subsided 10 hours after injections when she was relaxing after taking tizanidine. She rates pain intensity 7-8/10, worse in the morning and ADLs and most severe with bending or flexing forward indicating a discogenic source. She also experiences intermittent left sided radicular with prolonged walking. Patient reports mild relief of left sided pain consistent with left SIJ localized tenderness and positive provocative testing. Denies any recent cough, cold, infection, fever, any significant changes in her medical history, medications or recent hospitalizations. Past Procedures: 02/03/24: Bilateral Diagnostic L3-L4-DR-L5 MBB-0% pain relief Oswestry Low Back Disability=28 (severe disability) PRIOR: Patient is a pleasant 48 year old female with history of seronegative RA on long-term methotrexate, polyarthralgia, cervical and lumbar DDD, left knee surgery (reconstructive for patella injury) and fibromyalgia, presents today for initial evaluation of chronic lower back pain with left sided sciatica. She was initilly seen in our office [address] Marie for neck pain. Denies any recent trauma, injury or falls. Back pain is axial and also radiates to left lower extremity in L5-S1 distribution with associated numbness, tingling and burning in her lower back. Patient also has widespread body pain with multiple tender points consistent with fibromyalgia. Patient reports she wakes up every morning with significant stiffness and pain worsens through the day and night. She has tried physical therapy, massages, chiropractic therapies and therapeutic back injections without improvement in her symptoms or functioning. Ambulates with antalgic gait and reports intermittent left leg weakness. Denies any fever, abdominal or groin pain, bladder or bowel dysfunction, foot drop, or saddle anesthesia. Location Lower back, neck, elbows, left knee, widespread body pain Duration Chronic pain for many years Characteristics of symptom or complaint Aching, shooting, cramping, radiating, burning, stabbing, pulling Aggravating or associated factors Movement, walking, sitting, bending, heel standing, cold weather Relieving factors Heat therapy, Tylenol, Salonpas, NSAID, Methotrexate, tizanidine Treatment PT for neck 2022, for 2019-no improvement, back TPI injection at [facility] Ortho PRIOR 09/06/22 Dr. Marie: 46-year-old female presenting with pain in the neck, back, legs, arms, hands that has been ongoing for a long time but has been recently progressively worse in the last 6 months. Referred to us by Rheumatology for evaluation of degenerative disc disease in the cervical spine. Patient describes that her symptoms of polyarticular pain and stiffness have been worsening with increased intensity at morning and night when her pain is rated as 5 to 8/10. 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 She is unable to sleep normally despite trying different pillows for her neck. Pain is described as a constant sharp stabbing sensation that is worse on some days than others. No known exacerbating factor. She has undergone a rheumatologic workup that she states has returned some positive results that she is due to discuss with Dr. Brewer next week. [facility] Medical History Encounter for monitoring of adalimumab therapy Encounter for methotrexate monitoring Cervical radiculopathy Thyroid nodule Severe obesity Hidradenitis suppurativa Obstructive sleep apnea PCOS (polycystic ovarian syndrome) Headache Dysphagia GERD (gastroesophageal reflux disease) Allergic rhinitis Surgical History H/O ventral hernia repair Hx of cholecystectomy Hx of section Hx of knee surgery Family History Mother Hyperlipidemia Hypertension Arthritis Father Hyperlipidemia Hypertension Leukemia Cancer of kidney Arthritis Paternal Grandfather Coronary artery disease Maternal Grandfather Type 2 diabetes mellitus Paternal Grandmother Breast cancer Colon cancer Paternal Aunt Breast cancer Social History Household Members: Significant Other and Children Alcohol intake: current Alcohol intake frequency: does not drink Patient Tobacco Use Status: Never used Tobacco Current occupational status: unemployed 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 Lifting left leg reproduces moderate-severe left groin and hip pain. - Neurological: Denies any neurological deficits, bladder or bowel dysfunction or saddle anesthesia. All systems reviewed & are unremarkable except as noted in HPI and below Physical Exam Vital Signs: Last Vital Signs Pulse 90 03/25/25 14:34 BP 160/81 H 03/25/25 14:34 Pulse Ox 98 03/25/25 14:34 Oxygen Delivery Method Room Air 03/25/25 14:34 BMI result Body Mass Index 45.6 General: Appears afebrile. Alert and oriented x3. Mood and affect appropriate. Follows and participates in conversation appropriately. Respiratory effort is unlabored. No cough. Able to transition from sit to stand unassisted. Uses cane with ambulation. Ambulates with bilaterally normal heel strike and toe off. Back/Spine/Pelvis Other: Limited lumbar ROM due to pain. Antalgic gait with limping. Lumbar extension, flexion forward and extension reproduces moderate pain. Demonstrates 5/5 strength of quadriceps bilaterally as well as flexion/dorsiflexion of bilateral feet against resistance. 2+ pedal pulses bilaterally. Diminished patellar and achilles reflexes bilaterally. Facet loading test positive bilaterally. Watson sign, Yusuf?s and Stinchfield tests are positive bilaterally, left>right. Moderate left groin pain with left I/E hip rotations. +FADIR. Valsalva maneuver negative. Cervical Spine: cervical ROM normal and No Cervical spine tenderness Thoracic/Lumbar Spine: thoracic and lumbar spine normal to inspection, No Thoracic/lumbar spine scar(s), Lasegue's sign negative, straight leg raise negative bilaterally, pain with thoraco-lumbar ROM, paraspinal muscle tenderness bilaterally, thoraco-lumbar ROM limited, No thoracic spinal tenderness and lumbar spinal tenderness (L3-S1) Pelvis: buttock tenderness on the left Sacroiliac joints: bilaterally (left>right) tender to palpation Extrem General: Yes capillary refill normal, Yes no clubbing, cyanosis or edema and Yes no calf tenderness Results Reviewed Results Reviewed: MR SPINE LUMBAR without CONTRAST at [facility] 02/09/24 INDICATION: Other congenital malformations of spine, not associated with scoliosis. Other intervertebral disc degeneration, lumbar region. Radiculopathy, lumbar region. Vertebrogenic low back pain. TECHNIQUE: Unenhanced multiplanar, multisequence MR imaging of the lumbar spine. COMPARISON: Not available. FINDINGS: Normal lumbar alignment is demonstrated. Vertebral heights are well maintained. There are multiple ovoid lesions which are seen in several lower thoracic and lumbar vertebral bodies, which have slight increased signal intensity on T1-weighting, moderately increased signal intensity in T2 weighting and have slight increased signal intensity on the STIR sequence, typical for benign vertebral body hemangiomas: One lesion is seen to the right of midline in the T9 vertebral body measuring 0.6 cm dimension. Another lesion is seen to left of midline in the T9 vertebral body measuring 0.5 cm in dimension. One lesion is seen in the T10 vertebral body to the left midline measuring 1 cm in dimension. A lesion is seen to the right of midline in the T11 vertebral body measuring 0.6 cm in dimension. Another lesion is seen in the T11 vertebral body to the left of midline measuring 0.3 cm in dimension. A lesion is seen to the right of midline in the T12 vertebral body measuring 0.6 cm in dimension. Another lesion is seen to the left of midline in the T12 vertebral body measuring 1.9 cm in dimension A lesion is seen to the right of midline in the L1 vertebral body measuring 0.4 cm in dimension. Another lesion is seen in the L2 vertebral body which appears to occupy almost the entire vertebral body except for small unaffected ovoid areas which have decreased signal intensity on T1 and T2 imaging, and slight increased signal intensity on the STIR sequence Conus medullaris is unremarkable. Paraspinal soft tissues and visualized portions of the abdomen and pelvis are unremarkable. At L1-2 there is no significant disc herniation or protrusion. No central canal or neural foraminal stenosis is demonstrated. At L2-3 there is no significant disc herniation or protrusion. There is slight decreased signal intensity in the L2-3 disc on the fluid sensitive sequences, however, which could be due to disc desiccation. No central canal or neural foraminal stenosis is demonstrated. At L3-4 there is no significant disc herniation or protrusion. No central canal or neural foraminal stenosis is demonstrated. At L4-5 there is no significant disc herniation or protrusion. No central canal or neural foraminal stenosis is demonstrated. At L5-S1 there is no significant disc herniation or protrusion. No central canal or neural foraminal stenosis is demonstrated. 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 These are not likely due to other neoplastic lesions. 2.There is, however, an underlying lesion in the L2 vertebral body which appears to occupy almost the entire vertebral body, (which is increased on T1 and T2 weighting and intermediate in signal intensity on the STIR sequence) with a central area which has an atypical signal intensity on the images, being decreased on T1 and T2 weighting and slightly increased on the STIR sequence, which would be either due to atypical hemangioma, or possibly represent an area of other primary or secondary neoplastic disease. 3.MRI of the thoracic and lumbar spine is therefore suggested without and with gadolinium contrast for further evaluation. 4.There is mild disc desiccation at L2-3. 5.The lumbar intervertebral discs are otherwise normal in height, and show no evidence for diffuse disc bulges or disc protrusions, and there is no evidence for neuroforaminal stenosis or central spinal canal stenosis of the lumbar spine. 6.The lower visualized spinal cord and cauda equina region otherwise appear normal. MR CERVICAL SPINE WITHOUT AND WITH CONTRAST 07/08/22 at [facility] CLINICAL INFORMATION: 46-year-old with radiculopathy, cervical region, other specified abnormal immunological findings in serum. Self-reported neck, shoulder, arm and back pain, numbness and tingling in the arms and legs and headaches. Evaluate for spinal compression, signs of MS or tumor. COMPARISON: None FINDINGS: ALIGNMENT: The cervical spine is anatomically aligned. No spondylolisthesis or significant retrolisthesis. CRANIOCERVICAL JUNCTION/C1-C2 ARTICULATIONS: Intact and aligned. VISUALIZED INTRACRANIAL STRUCTURES: Within normal limits. VERTEBRAL BODIES: Normal height. DISC SPACES AND ENDPLATES: The intervertebral disc space heights are well maintained. No significant spondylosis. Endplates appear intact. BONE MARROW: No significant marrow-replacing process or bone marrow edema. No abnormal bone marrow enhancement. C2-C3: No disc herniation or canal stenosis. Minor facet arthrosis noted on the left with mild left-sided foraminal narrowing. C3-C4: Shallow central disc protrusion noted with minimal flattening of the central dural sac without cord impingement or canal stenosis. No significant DJD or neural foraminal stenosis. C4-C5: Shallow central disc protrusion with minimal encroachment on the central dural sac without cord impingement or canal stenosis. No significant DJD or neural foraminal stenosis. C5-C6: Shallow central disc protrusion, with minimal flattening of the central dural sac without cord impingement or canal stenosis. No significant DJD or neural foraminal stenosis. C6-C7: No disc herniation or canal stenosis. Yhde-yi-uihqfzoz facet arthropathy left more than right with mild left-sided neural foraminal stenosis. C7-T1: No disc herniation or canal stenosis. No significant DJD or neural foraminal stenosis. T1-T2: No disc herniation or canal stenosis. Lltb-is-ojxqsrwy facet arthrosis noted on the right without significant neural foraminal stenosis. SPINAL CORD: The cervical and visualized upper thoracic spinal cord is normal in morphology, caliber and signal intensity throughout, without focal lesion, edema, syrinx or abnormal enhancement. There is no abnormal leptomeningeal enhancement. Specifically, there is no evidence for MS or other inflammatory changes and no evidence for mass lesion. EXTRACRANIAL SOFT TISSUES: 1.1 cm left thyroid lobe nodule and a 0.9 cm right thyroid lobe nodule. Most likely not clinically significant. No follow-up imaging recommended. (This recommendation is offered as general guidance and does not apply to all patients, such as those with clinical risk factors for thyroid cancer.) There is a 6 mm greatest short axis left lateral retropharyngeal lymph node, which is at the upper limits of normal in size for this location. IMPRESSION: 1. Normal appearance to the spinal cord. No evidence for MS or other inflammatory changes and no evidence for mass lesion or abnormal enhancement. 2. Minor multilevel shallow central disc protrusions without spinal cord impingement or significant canal stenosis. 3. Crrk-nl-lwbtlhxo degrees of facet arthropathy as described above, with mild left-sided neural foraminal stenosis at C6-C7 and mild left-sided neural foraminal stenosis at C2-C3. 4. Small thyroid nodules. Most likely not clinically significant. No follow-up imaging recommended. (This recommendation is offered as general guidance and does not apply to all patients, such as those with clinical risk factors for thyroid cancer. XR SACROILIAC JOINTS 12/01/23 FINDINGS: Bones and soft tissues are normal. No fracture. Alignment is anatomic. Sacroiliac joint spaces are well-maintained without erosions or surrounding sclerosis. There is sacralization of the L5 left transverse process. IMPRESSION: 1. Normal sacroiliac joints. 2. There is sacralization of the L5 left transverse process. XR LUMBOSACRAL SPINE WITH OBLIQUES 12/01/23 CLINICAL INFORMATION: Lumbar radiculopathy. FINDINGS: Vertebral body heights and alignment are normal. The lower thoracic and lumbar disc spaces are well-maintained. No acute fracture or spondylolisthesis is seen. There is multi-level lower thoracic and lumbar endplate arthropathy. The posterior elements are intact. There is facet arthropathy at L5-S1. The paravertebral soft tissues are unremarkable. Herniorrhaphy mesh is seen. There are right upper quadrant surgical clips. IMPRESSION: 1. No acute fracture or spondylolisthesis is seen. 2. The lower thoracic and lumbar disc spaces are well-maintained. 3. There is multi-level lower thoracic and lumbar degenerative facet arthropathy. 4. There is facet arthropathy at L5-S1. Assessment & Plan Assessment & Plan (1) Left hip pain: Code(s): M25.552 - Pain in left hip Category: Medical (2) Sacroiliac joint pain: Code(s): M53.3 - Sacrococcygeal disorders, not elsewhere classified Category: Medical (3) Lumbosacral spondylosis: Code(s): M47.817 - Spondylosis without myelopathy or radiculopathy, lumbosacral region Category: Medical (4) Fibromyalgia: Code(s): M79.7 - Fibromyalgia Category: Medical Plan The plan includes obtaining a left hip x-ray to assess for arthritis. We discussed therapeutic left hip injection and sacroiliac joint injection with local and fluoroscopy. If significant hip arthritis is present, a hip injection will be prioritized, followed by an SI joint injection if necessary. Expectations, risks and benefits were reviewed. Patient is aware she will be contacted to schedule this procedure. The patient will continue her current medication regimen, including Tylenol, ibuprofen, gabapentin, and tizanidine, with oxycodone reserved for severe pain episodes which patient has from previous short script order. Continue daily physical activity as tolerated, weight optimizations and avoid activities that reproduce significant hip and low back pain. All questions and concerns have been answered and patient agreed with the plan. Follow up after injections and sooner as needed. Patient was informed and verbally consented to the use of an ambient scribe for clinic note documentation during this visit. Orders: Orders XR hip LT min 2V Today M25.552 - Pain in left hip, M53.3 - Sacrococcygeal disorders, not elsewhere classified Coding Level of Care Code Est Pt Level 4 (90740) Complex EM visit Add On G2211 Diagnoses Left hip pain M25.552 Sacroiliac joint pain M53.3 Lumbosacral spondylosis M47.817 Fibromyalgia M79.7
[2025-03-25 14:34] VITALS: BP 160/81; PULSE 90; O2SAT 98; BMI 45.6
== END 2025-03-25 14:49 | disposition home or self-care (01) ==
LOC: HO.PMC 14:28
PROVIDERS: PCP Pediatrics; Visit Provider Nurse Practitioner Family
DX: M25.552 Pain in left hip (principal); M53.3 Sacrococcygeal disorders, not elsewhere classified; M47.817 Spondylosis without myelopathy or radiculopathy, lumbosacral region; M79.7 Fibromyalgia
CPT/HCPCS: 99214

== ENCOUNTER 2025-03-25 14:28 | Outpatient (REF) | payer OTHER, SELFPAY ==
--- NOTE | ~2025-03-25 | XR_ITS ---
EXAMINATION: XR HIP, LEFT CLINICAL INFORMATION: M25.552 - Pain in left hip COMPARISON: None available. TECHNIQUE: Two views of the left hip. FINDINGS: No fracture, dislocation, or suspicious bone lesion. There is normal alignment. There is early/mild degenerative change of the left hip joint with early subcapital and superolateral acetabular osteophytes. There is subtle amorphous calcification of the superolateral labrum. There is normal acetabular coverage. There is no soft tissue abnormality. XR/XR hip LT min 2V IMPRESSION: 1. No acute bony abnormalities of the left hip. There is mild degenerative arthritis. Electronically signed by: Rocco Mock MD 03/25/2025 03:39 PM EDT
== END 2025-03-25 14:29 | disposition home or self-care (01) ==
LOC: HO.XRAY 14:28
PROVIDERS: PCP Pediatrics; Visit Provider Nurse Practitioner Family
DX: M16.12 Unilateral primary osteoarthritis, left hip (principal)
CPT/HCPCS: 73502

== ENCOUNTER → 2025-03-25 15:09 | Outpatient (BNV) | payer OTHER, SELFPAY | PROVIDERS: PCP Pediatrics; Visit Provider Radiology Diagnostic Radiology | DX: M25.552 Pain in left hip (principal) | CPT/HCPCS: 73502 ==

== ENCOUNTER 2025-04-26 09:04 | Outpatient (REF) | payer OTHER, SELFPAY ==
[2025-04-26 10:49] LABS: Alanine Aminotransferase 29 U/L (0-31); Albumin Level 4.0 g/dL (3.5-5.0); Alkaline Phosphatase 76 U/L (39-117); Anion Gap 12 (12-20); Aspartate Amino Transferase 21 U/L (5-31); Blood Urea Nitrogen 12 mg/dL (9-16); Calcium 8.8 mg/dL (8.4-10.2); Carbon Dioxide 23 mmol/L (22-29); Chloride 108 mmol/L (96-108); Estimated Glomerular Filt Rate > 60; Potassium 4.1 mmol/L (3.3-5.1); Sodium 139 mmol/L (135-145); Total Protein 6.5 g/dL (6.5-8.0)
== END 2025-04-26 09:05 | disposition home or self-care (01) ==
LOC: HO.HMGCLDS 09:04
PROVIDERS: PCP Pediatrics; Visit Provider Student in an Organized Health Care Education/Training Program
DX: R74.01 Elevation of levels of liver transaminase levels (principal)
CPT/HCPCS: 36415; 80053

== ENCOUNTER 2025-05-10 11:44 | Outpatient (AMB) | payer OTHER, SELFPAY ==
--- NOTE | 2025-05-10 11:49 | A.OFFVIS_ITS ---
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 The left hip pain has been present for a long time but has worsened significantly over the past few months. An x-ray in March revealed mild osteoarthritis with early bone spurs, but no tissue abnormalities were noted. The pain is exacerbated by movements such as getting out of a car or lifting the leg, changing positions, prolonged sitting, walking, and it radiates to the left buttock, lateral hip and groin area. The patient also experiences chronic low back pain, which is constant regardless of position, whether lying, sitting, walking, or standing. Previous medial branch blocks provided no relief, but SI joint injections have been considered. The right shoulder pain has been present for almost three weeks, characterized by pain when putting the arm behind the back or lifting it. The patient has full range of motion but experiences significant pain with certain movements. She reports shoulder pain 3 years ago which recently reoccurred without any trauma, injury or falls. Reports difficulty sleeping on the right side due to pain. The patient has rheumatoid arthritis and is awaiting insurance approval to start a new medication, Symphony, to be used alongside methotrexate. She has been taking Tylenol, duloxetine, gabapentin with continued symptoms. Avoids NSAIDs due to methotrexate therapy. She reports oxycodone has been effective in the past and requests refill today. Denies any recent cough, cold, infection, fever or any other significant changes in medical history since last office visit. PRIOR: The patient is a 49-year-old female presenting with left hip pain and sacroiliac joint pain. The hip pain has been persistent for years, with recent exacerbation, and is described as severe, often reaching a pain level of 7-8/10. The pain radiates to the left buttock and groin, and is aggravated by activities such as lifting the leg, walking, and bending. Denies any recent trauma, injury or falls. The patient has a history of seronegative rheumatoid arthritis and fibromyalgia, for which she is under Rheumatology care. She is currently on methotrexate and has been switched from Humira to Simponi due to cost issues. She also takes gabapentin and tizanidine for pain management, with occasional use of oxycodone for severe pain episodes. - Onset: Persistent for years with recent exacerbation - Quality: Severe, reaching a pain level of seven to eight out of ten - Location: Left hip, radiating to the left buttock, lateral hip and groin - Exacerbating factors: Lifting the leg, walking, bending - Interference: Difficulty lifting leg, walking, bending, and requires use of a cane or walker for long distances - Affect: Pain significantly impacts daily activities and mobility - Analgesia: Current medications include methotrexate, gabapentin, tizanidine, and occasional oxycodone - Adverse Effects: No specific adverse effects reported from current medications - Activities of Daily Living: Pain interferes with walking, bending, and requires assistive devices for mobility - Aberrant Drug Related Behaviors: No aberrant behaviors reported PRIOR 02/10/24: Patient presents today to review recent lumbar spine MRI results completed at [facility] on 02/09/24. Patient reports today that lumbar spine MRI was denied by her insurance but due to significant back pain, she paid out of pocket. We will proceed with an appeal for her lumbar spine MRI as her symptoms of intractable low back pain with discogenic source per previous and today's exam findings indicate medical necessity for this. MRI results were reviewed with patient today with concerns for multiple thoracolumbar lesions. We will proceed with MRI of the thoracic and lumbar spine without and with gadolinium contrast for further evaluation as recommended and Oncology referral to rule out neoplastic disease. Previous cervical spine MRI results also were noted through [facility] and noted below. Denies any fever, abdominal or groin pain, bladder or bowel dysfunction or saddle anesthesia. Patient has significant concerns for these findings due to strong positive family history of cancer in her family, including her father, paternal grand mother and paternal aunt. PRIOR: Patient presents today to assess response to Bilateral Diagnostic L3-L4-DR-L5 MBB injections on 02/03/[address] Brown. Patient reports 0% pain relief since procedure without any improvement in her functioning, range of motion, mobility or sleep. Patient reports increased pain during 6 hours after injections while bending, doing laundry, dishes and vacuuming. Pain slightly subsided 10 hours after injections when she was relaxing after taking tizanidine. She rates pain intensity 7-8/10, worse in the morning and ADLs and most severe with bending or flexing forward indicating a discogenic source. She also experiences intermittent left sided radicular with prolonged walking. Patient reports mild relief of left sided pain consistent with left SIJ localized tenderness and positive provocative testing. Denies any recent cough, cold, infection, fever, any significant changes in her medical history, medications or recent hospitalizations. Past Procedures: 02/03/24: Bilateral Diagnostic L3-L4-DR-L5 MBB-0% pain relief Oswestry Low Back Disability=28 (severe disability) PRIOR: Patient is a pleasant 48 year old female with history of seronegative RA on long-term methotrexate, polyarthralgia, cervical and lumbar DDD, left knee surgery (reconstructive for patella injury) and fibromyalgia, presents today for initial evaluation of chronic lower back pain with left sided sciatica. She was initilly seen in our office [address] Marie for neck pain. Denies any recent trauma, injury or falls. Back pain is axial and also radiates to left lower extremity in L5-S1 distribution with associated numbness, tingling and burning in her lower back. Patient also has widespread body pain with multiple t lisa points consistent with fibromyalgia. Patient reports she wakes up every morning with significant stiffness and pain worsens through the day and night. She has tried physical therapy, massages, chiropractic therapies and therapeutic back injections without improvement in her symptoms or functioning. Ambulates with antalgic gait and reports intermittent left leg weakness. Denies any fever, abdominal or groin pain, bladder or bowel dysfunction, foot drop, or saddle anesthesia. Location Lower back, neck, elbows, left knee, widespread body pain Duration Chronic pain for many years Characteristics of symptom or complaint Aching, shooting, cramping, radiating, burning, stabbing, pulling Aggravating or associated factors Movement, walking, sitting, bending, heel standing, cold weather Relieving factors Heat therapy, Tylenol, Salonpas, NSAID, Methotrexate, tizanidine Treatment PT for neck 2023, for 2019-no improvement, back TPI injection at [facility] PRIOR 09/06/22 Dr. Marie: 46-year-old female presenting with pain in the neck, back, legs, arms, hands that has been ongoing for a long time but has been recently progressively worse in the last 6 months. Referred to us by Rheumatology for evaluation of degenerative disc disease in the cervical spine. Patient describes that her symptoms of polyarticular pain and stiffness have been worsening with increased intensity at morning and night when her pain is rated as 5 to 8/10. 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 She is unable to sleep normally despite trying different pillows for her neck. Pain is described as a constant sharp stabbing sensation that is worse on some days than others. No known exacerbating factor. She has undergone a rheumatologic workup that she states has returned some positive results that she is due to discuss with Dr. Brewer next week. [facility] Medical History Encounter for monitoring of adalimumab therapy Encounter for methotrexate monitoring Cervical radiculopathy Thyroid nodule Severe obesity Hidradenitis suppurativa Obstructive sleep apnea PCOS (polycystic ovarian syndrome) Headache Dysphagia GERD (gastroesophageal reflux disease) Allergic rhinitis Surgical History H/O ventral hernia repair Hx of cholecystectomy Hx of section Hx of knee surgery Family History Mother Hyperlipidemia Hypertension Arthritis Father Hyperlipidemia Hypertension Leukemia Cancer of kidney Arthritis Paternal Grandfather Coronary artery disease Maternal Grandfather Type 2 diabetes mellitus Paternal Grandmother Breast cancer Colon cancer Paternal Aunt Breast cancer Social History Household Members: Significant Other and Children Alcohol intake: current Alcohol intake frequency: does not drink Patient Tobacco Use Status: Never used Tobacco Current occupational status: unemployed 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 Alert and oriented x3. Mood and affect appropriate. Follows and participates in conversation appropriately. Respiratory effort is unlabored. No cough. Able to transition from sit to stand unassisted. Uses cane with ambulation. Ambulates with bilaterally normal heel strike and toe off. Back/Spine/Pelvis Other: Limited lumbar ROM due to pain. Lumbar extension, flexion forward and extension reproduces mild to moderate pain. Demonstrates 5/5 strength of quadriceps bilaterally as well as flexion/dorsiflexion of bilateral feet against resistance. 2+ pedal pulses bilaterally. Diminished patellar and achilles reflexes bilaterally. Facet loading test positive bilaterally. Watson sign, Yusuf?s and Stinchfield tests are positive bilaterally, left>right. Mild- moderate left groin pain with left I/E hip rotations. +FADIR. Valsalva maneuver negative. Cervical Spine: cervical ROM normal and No Cervical spine tenderness Thoracic/Lumbar Spine: thoracic and lumbar spine normal to inspection, No Thoracic/lumbar spine scar(s), Lasegue's sign negative, straight leg raise negative bilaterally, pain with thoraco-lumbar ROM, paraspinal muscle tenderness bilaterally, thoraco-lumbar ROM limited, No thoracic spinal tenderness and lumbar spinal tenderness (L3-S1) Pelvis: buttock tenderness on the left Sacroiliac joints: bilaterally (left>right) tender to palpation Extrem General: Yes capillary refill normal, Yes no clubbing, cyanosis or edema and Yes no calf tenderness Right upper extremity: shoulder/upper arm (Pain with overhead and backside pocket reaches) Details: normal to inspection, tenderness Location: of the A-C joint and over the subacromial bursa and normal ROM; no swelling, no ecchymosis, no crepitus and no unusual warmth Results Reviewed Results Reviewed: XR HIP, LEFT 03/25/25 CLINICAL INFORMATION: M25.552 - Pain in left hip COMPARISON: None available. TECHNIQUE: Two views of the left hip. FINDINGS: No fracture, dislocation, or suspicious bone lesion. There is normal alignment. There is early/mild degenerative change of the left hip joint with early subcapital and superolateral acetabular osteophytes. There is subtle amorphous calcification of the superolateral labrum. There is normal acetabular coverage. There is no soft tissue abnormality. IMPRESSION: 1. No acute bony abnormalities of the left hip. There is mild degenerative arthritis. MR SPINE LUMBAR without CONTRAST at [facility] 02/09/24 INDICATION: Other congenital malformations of spine, not associated with scoliosis. Other intervertebral disc degeneration, lumbar region. Radiculopathy, lumbar region. Vertebrogenic low back pain. TECHNIQUE: Unenhanced multiplanar, multisequence MR imaging of the lumbar spine. COMPARISON: Not available. FINDINGS: Normal lumbar alignment is demonstrated. Vertebral heights are well maintained. There are multiple ovoid lesions which are seen in several lower thoracic and lumbar vertebral bodies, which have slight increased signal intensity on T1-weighting, moderately increased signal intensity in T2 weighting and have slight increased signal intensity on the STIR sequence, typical for benign vertebral body hemangiomas: One lesion is seen to the right of midline in the T9 vertebral body measuring 0.6 cm dimension. Another lesion is seen to left of midline in the T9 vertebral body measuring 0.5 cm in dimension. One lesion is seen in the T10 vertebral body to the left midline measuring 1 cm in dimension. A lesion is seen to the right of midline in the T11 vertebral body measuring 0.6 cm in dimension. Another lesion is seen in the T11 vertebral body to the left of midline measuring 0.3 cm in dimension. A lesion is seen to the right of midline in the T12 vertebral body measuring 0.6 cm in dimension. Another lesion is seen to the left of midline in the T12 vertebral body measuring 1.9 cm in dimension A lesion is seen to the right of midline in the L1 vertebral body measuring 0.4 cm in dimension. Another lesion is seen in the L2 vertebral body which appears to occupy almost the entire vertebral body except for small unaffected ovoid areas which have decreased signal intensity on T1 and T2 imaging, and slight increased signal intensity on the STIR sequence Conus medullaris is unremarkable. Paraspinal soft tissues and visualized portions of the abdomen and pelvis are unremarkable. At L1-2 there is no significant disc herniation or protrusion. No central canal or neural foraminal stenosis is demonstrated. At L2-3 there is no significant disc herniation or protrusion. There is slight decreased signal intensity in the L2-3 disc on the fluid sensitive sequences, however, which could be due to disc desiccation. No central canal or neural foraminal stenosis is demonstrated. At L3-4 there is no significant disc herniation or protrusion. No central canal or neural foraminal stenosis is demonstrated. At L4-5 there is no significant disc herniation or protrusion. No central canal or neural foraminal stenosis is demonstrated. At L5-S1 there is no significant disc herniation or protrusion. No central canal or neural foraminal stenosis is demonstrated. 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 These are not likely due to other neoplastic lesions. 2.There is, however, an underlying lesion in the L2 vertebral body which appears to occupy almost the entire vertebral body, (which is increased on T1 and T2 weighting and intermediate in signal intensity on the STIR sequence) with a central area which has an atypical signal intensity on the images, being decreased on T1 and T2 weighting and slightly increased on the STIR sequence, which would be either due to atypical hemangioma, or possibly represent an area of other primary or secondary neoplastic disease. 3.MRI of the thoracic and lumbar spine is therefore suggested without and with gadolinium contrast for further evaluation. 4.There is mild disc desiccation at L2-3. 5.The lumbar intervertebral discs are otherwise normal in height, and show no evidence for diffuse disc bulges or disc protrusions, and there is no evidence for neuroforaminal stenosis or central spinal canal stenosis of the lumbar spine. 6.The lower visualized spinal cord and cauda equina region otherwise appear normal. XR SACROILIAC JOINTS 12/01/23 FINDINGS: Bones and soft tissues are normal. No fracture. Alignment is anatomic. Sacroiliac joint spaces are well-maintained without erosions or surrounding sclerosis. There is sacralization of the L5 left transverse process. IMPRESSION: 1. Normal sacroiliac joints. 2. There is sacralization of the L5 left transverse process. XR LUMBOSACRAL SPINE WITH OBLIQUES 12/01/23 CLINICAL INFORMATION: Lumbar radiculopathy. FINDINGS: Vertebral body heights and alignment are normal. The lower thoracic and lumbar disc spaces are well-maintained. No acute fracture or spondylolisthesis is seen. There is multi-level lower thoracic and lumbar endplate arthropathy. The posterior elements are intact. There is facet arthropathy at L5-S1. The paravertebral soft tissues are unremarkable. Herniorrhaphy mesh is seen. There are right upper quadrant surgical clips. IMPRESSION: 1. No acute fracture or spondylolisthesis is seen. 2. The lower thoracic and lumbar disc spaces are well-maintained. 3. There is multi-level lower thoracic and lumbar degenerative facet arthropathy. 4. There is facet arthropathy at L5-S1. XR shoulder RT min 2V - RIGHT SHOULDER: There is no evidence of acute fracture or dislocation of the right shoulder. No calcific tendinitis. Glenohumeral joint appears unremarkable. No widening of the coracoclavicular space. There is mild spurring about the acromioclavicular joint. Assessment & Plan Assessment & Plan (1) Fibromyalgia: Code(s): M79.7 - Fibromyalgia Category: Medical (2) Right shoulder pain: Code(s): M25.511 - Pain in right shoulder Category: Medical (3) Lumbosacral spondylosis: Code(s): M47.817 - Spondylosis without myelopathy or radiculopathy, lumbosacral region Category: Medical (4) Sacroiliac joint pain: Code(s): M53.3 - Sacrococcygeal disorders, not elsewhere classified Category: Medical (5) Left hip pain: Code(s): M25.552 - Pain in left hip Category: Medical (6) Morbid obesity with BMI of 45.0-49.9, adult: Code(s): E66.01 - Morbid (severe) obesity due to excess calories; Z68.42 - Body mass index [BMI] 45.0-49.9, adult Category: Medical Plan The plan includes scheduling a left therapeutic SI joint injection with local and fluoroscopy to address the chronic low back pain and associated symptoms. Expectations, risks and benefits were reviewed. Patient is aware she will be contacted to schedule this procedure. If no pain relief, will consider left hip injection. Physical therapy is recommended for the right shoulder to improve function and reduce pain. The patient is advised to continue current medications, including gabapentin and Tylenol, and duloxetine. I have informed patient that I do offer chronic opioid program at this time. Encouraged patient daily physical activity as tolerated, good posture, avoiding strenuous exercises, and continue weight loss efforts. All questions and concerns have been answered and patient agreed with the treatment plan. Follow up after injection/PT and sooner as needed. Orders: Orders PT Evaluation and Treatment Today M25.511 - Pain in right shoulder, M79.7 - Fibromyalgia Patient Instructions: - Schedule and attend left therapeutic SI joint injection appointment. - Begin physical therapy for the right shoulder as recommended. - Continue taking gabapentin, duloxetine and Tylenol as needed and heat/ice therapy for pain management. Patient was informed and verbally consented to the use of an ambient scribe for clinic note documentation during this visit. Coding Level of Care Code Est Pt Level 4 (08916) Complex EM visit Add On G2211 Diagnoses Fibromyalgia M79.7 Right shoulder pain M25.511 Lumbosacral spondylosis M47.817 Sacroiliac joint pain M53.3 Left hip pain M25.552 Morbid obesity with BMI of 45.0-49.9, adult E66.01; Z68.42
[2025-05-10 11:50] VITALS: BP 181/91; PULSE 89; O2SAT 99; BMI 45.1
== END 2025-05-10 12:01 | disposition home or self-care (01) ==
LOC: HO.PMC 11:44
PROVIDERS: PCP Pediatrics; Visit Provider Nurse Practitioner Family
DX: M79.7 Fibromyalgia (principal); M25.511 Pain in right shoulder; M47.817 Spondylosis without myelopathy or radiculopathy, lumbosacral region; M53.3 Sacrococcygeal disorders, not elsewhere classified; M25.552 Pain in left hip; E66.01 Morbid (severe) obesity due to excess calories; Z68.42 Body mass index [BMI] 45.0-49.9, adult
CPT/HCPCS: 99214

== ENCOUNTER 2025-06-14 06:14 | Outpatient (REF) | payer OTHER, SELFPAY ==
--- NOTE | ~2025-06-14 | FL_ITS ---
EXAMINATION: FLUOROSCOPY GUIDANCE FOR NEEDLE PLACEMENT CLINICAL INFORMATION: M53.3 - Sacrococcygeal disorders, not elsewhere classified COMPARISON: None available. TECHNIQUE: Fluoroscopy provided FINDINGS: Intraoperative fluoroscopy was provided for use by Dr. Goddrad. A radiologist was not present during imaging. Today's dictation is only for administrative purposes to document intraoperative fluoroscopy. FL/FL guidance in treatment room IMPRESSION: Intraoperative fluoroscopy provided for use by Dr. Goddard. Please see procedure note for details findings. FLUOROSCOPY TIME: 8 seconds Dose: 4.71 mgy Electronically signed by: Chad Sherwood MD 06/14/2025 01:07 PM EDT
== END 2025-06-14 06:15 | disposition home or self-care (01) ==
LOC: CF 06:14
PROVIDERS: Visit Provider Anesthesiology
DX: M53.3 Sacrococcygeal disorders, not elsewhere classified (principal); M79.7 Fibromyalgia; M25.511 Pain in right shoulder; M47.817 Spondylosis without myelopathy or radiculopathy, lumbosacral region; M25.552 Pain in left hip; E66.01 Morbid (severe) obesity due to excess calories; Z68.42 Body mass index [BMI] 45.0-49.9, adult
CPT/HCPCS: 27096; J2003; J2795; J3301; Q9967

== ENCOUNTER 2025-06-14 08:32 | Outpatient (AMB) | payer OTHER, SELFPAY ==
[2025-06-14 08:42] VITALS: BP 121/83; PULSE 90; RESP 16; O2SAT 97
--- NOTE | 2025-06-14 08:42 | MHC.OFFVIS ---
Vital Signs 06/14/25 08:42 06/14/25 09:03 BP 121/83 143/76 H Blood Pressure Location Lt radial Lt radial Position Sitting Sitting Respiration 16 16 Pulse 90 85 Pulse Source Pulse Oximeter Pulse Oximeter Pulse Oximetry (%) 97 97 Oxygen Delivery Method Room Air Room Air Intake Visit Reasons: Left Therapeutic Sacroiliac Joint Injection Community Health Counselor Required: No Allergies hydroxychloroquine Adverse Reaction (Intermediate, Verified 06/14/25 08:42) Palpitations sulfadiazine Adverse Reaction (Intermediate, Verified 06/14/25 08:42) Anaphylaxis Medication List - Last Reconciled 06/14/25 by Mariam Philip LPN duloxetine 60 mg PO DAILY folic acid 1 mg PO DAILY gabapentin 300 mg PO BID 30 days hydroxyzine HCl 25 mg PO TID PRN methotrexate sodium 15 mg (6 x 2.5 mg) PO QWEEK oxycodone 5 mg PO BID PRN 10 days tizanidine 4 mg PO BID PRN PFSH Medical History Encounter for monitoring of adalimumab therapy Encounter for methotrexate monitoring Cervical radiculopathy Thyroid nodule Severe obesity Hidradenitis suppurativa Obstructive sleep apnea PCOS (polycystic ovarian syndrome) Headache Dysphagia GERD (gastroesophageal reflux disease) Allergic rhinitis Surgical History H/O ventral hernia repair Hx of cholecystectomy Hx of section Hx of knee surgery Family History Mother Hyperlipidemia Hypertension Arthritis Father Hyperlipidemia Hypertension Leukemia Cancer of kidney Arthritis Paternal Grandfather Coronary artery disease Maternal Grandfather Type 2 diabetes mellitus Paternal Grandmother Breast cancer Colon cancer Paternal Aunt Breast cancer Social History Household Members: Significant Other and Children Alcohol intake: current Alcohol intake frequency: does not drink Patient Tobacco Use Status: Never used Tobacco Current occupational status: unemployed 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 Exam Vital Signs: Last Vital Signs Pulse 85 06/14/25 09:03 Resp 16 06/14/25 09:03 BP 143/76 H 06/14/25 09:03 Pulse Ox 97 06/14/25 09:03 Oxygen Delivery Method Room Air 06/14/25 09:03 Assessment & Plan Assessment & Plan (1) Fibromyalgia: Code(s): M79.7 - Fibromyalgia Category: Medical (2) Right shoulder pain: Code(s): M25.511 - Pain in right shoulder Category: Medical (3) Lumbosacral spondylosis: Code(s): M47.817 - Spondylosis without myelopathy or radiculopathy, lumbosacral region Category: Medical (4) Sacroiliac joint pain: Code(s): M53.3 - Sacrococcygeal disorders, not elsewhere classified Category: Medical (5) Left hip pain: Code(s): M25.552 - Pain in left hip Category: Medical (6) Morbid obesity with BMI of 45.0-49.9, adult: Code(s): E66.01 - Morbid (severe) obesity due to excess calories; Z68.42 - Body mass index [BMI] 45.0-49.9, adult Category: Medical Plan Sacroiliac joint injection therapeutic left. Informed consent was explained thoroughly to the patient.? All questions about benefits and risks for the procedure were answered. Patient came to the operating room and was positioned prone on the operating table with the pillow under the abdomen.? The lower back and buttocks of the patient were prepped with ChloraPrep prepped and draped with sterile utility towels.? Sterilely draped C-arm was brought over the operating field and sq picture of patient's pelvis was demonstrated on the screen.? For the left joint tilting C-arm contralateral to the site of the joint the most posterior portion of the joints was superimposed with anterior silhouette of the joint.? Skin was injected in the projection of the joint slightly medial to the location of the joint with 25 gauge 1/2 inch needle using local lidocaine 2% mixed with ropivacaine 0.5% one to one. After that 22 gauge 3 and 1/2 inch needle was driven to the left joint in tunnel vision fashion.? When needle entered the joint capsule injection of the contrast was performed demonstrating intra-articular and minimally periarticular spread of the contrast.? After that 5 cc. of ropivacaine 0.5% mixed with Kenalog 40 mg was injected into the joint. Upon completion of the injections the needles were removed, Band-Aids were applied.? Upon completion of the injection patient was taken outside of the operating room to the recovery room where recovered uneventfully. Orders: Orders FL guidance in treatment room Today M53.3 - Sacrococcygeal disorders, not elsewhere classified Coding Level of Care Code Procedure Only Diagnoses Fibromyalgia M79.7 Right shoulder pain M25.511 Lumbosacral spondylosis M47.817 Sacroiliac joint pain M53.3 Left hip pain M25.552 Morbid obesity with BMI of 45.0-49.9, adult E66.01; Z68.42
[2025-06-14 09:03] VITALS: BP 143/76; PULSE 85; RESP 16; O2SAT 97
== END 2025-06-14 09:03 | disposition home or self-care (01) ==
LOC: HO.PMCPRC 08:32
PROVIDERS: PCP Pediatrics; Visit Provider Anesthesiology
DX: M79.7 Fibromyalgia (principal); M25.511 Pain in right shoulder; M47.817 Spondylosis without myelopathy or radiculopathy, lumbosacral region; M53.3 Sacrococcygeal disorders, not elsewhere classified; M25.552 Pain in left hip; E66.01 Morbid (severe) obesity due to excess calories; Z68.42 Body mass index [BMI] 45.0-49.9, adult
CPT/HCPCS: 27096

== ENCOUNTER 2025-07-13 09:08 | Outpatient (AMB) | payer OTHER, SELFPAY ==
--- NOTE | 2025-07-13 09:10 | A.OFFVIS_ITS ---
Vital Signs 07/13/25 09:11 Height 5 ft 7 in Weight 295 lb BMI 46.2 BP 174/87 H Blood Pressure Location Lt brachial Position Sitting Respiration 16 Pulse 79 Pulse Source Pulse Oximeter Pulse Oximetry (%) 99 Oxygen Delivery Method Room Air Intake Visit Reasons: s/p SIJ inj/ discuss fusion Floor Attendant Required: No Accompanied by: Life Partner Allergies hydroxychloroquine Adverse Reaction (Intermediate, Verified 07/13/25 09:16) Palpitations sulfadiazine Adverse Reaction (Intermediate, Verified 07/13/25 09:16) Anaphylaxis HPI Comments Details: Nadine is very pleasant 49 years old female who presents in my office 1 month after therapeutic left sacroiliac joint injection. She reported that pain in her sacroiliac joint before the injection was 8/10. She reported today mostly absence of pain in the sacroiliac joint. From time to time she feels sacroiliac joint pain mostly 1/10 or 2/10 with physical exertion. She is interested in sacroiliac joint fusion. She also complains on pain in the left groin. This mostly related to the coexisting hip joint arthritis which is demonstrated on the patient's left hip x-ray, see the report below. We discussed possibility of treatment of this patient's pain with continuous sacroiliac joint injections. We also discussed possibility of treatment of her pain with sacroiliac joint fusion Kishan. Patient was provided with the sacroiliac joint belt to wear. I also would recommend her low impact aerobic exercise such as swimming, stationary bicycle or elliptical machine. We agreed that she will schedule appointment with me after her pain will start to come back. [facility] Medical History Encounter for monitoring of adalimumab therapy Encounter for methotrexate monitoring Cervical radiculopathy Thyroid nodule Severe obesity Hidradenitis suppurativa Obstructive sleep apnea PCOS (polycystic ovarian syndrome) Headache Dysphagia GERD (gastroesophageal reflux disease) Allergic rhinitis Surgical History H/O ventral hernia repair Hx of cholecystectomy Hx of section Hx of knee surgery Family History Mother Hyperlipidemia Hypertension Arthritis Father Hyperlipidemia Hypertension Leukemia Cancer of kidney Arthritis Paternal Grandfather Coronary artery disease Maternal Grandfather Type 2 diabetes mellitus Paternal Grandmother Breast cancer Colon cancer Paternal Aunt Breast cancer Social History Household Members: Significant Other and Children Alcohol intake: current Alcohol intake frequency: does not drink Patient Tobacco Use Status: Never used Tobacco Current occupational status: unemployed 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 Alert and oriented x3. Mood and affect appropriate. Follows and participates in conversation appropriately. Respiratory effort is unlabored. No cough. Able to transition from sit to stand unassisted. Uses cane with ambulation. Ambulates with bilaterally normal heel strike and toe off. Back/Spine/Pelvis Other: Limited lumbar ROM due to pain. Lumbar extension, flexion forward and extension reproduces mild to moderate pain. Demonstrates 5/5 strength of quadriceps bilaterally as well as flexion/dorsiflexion of bilateral feet against resistance. 2+ pedal pulses bilaterally. Diminished patellar and achilles reflexes bilaterally. Facet loading test positive bilaterally. Watson sign, Yusuf?s and Stinchfield tests are positive bilaterally, left>right. Mild- moderate left groin pain with left I/E hip rotations. +FADIR. Valsalva maneuver negative. Cervical Spine: cervical ROM normal and No Cervical spine tenderness Thoracic/Lumbar Spine: thoracic and lumbar spine normal to inspection, No Thoracic/lumbar spine scar(s), Lasegue's sign negative, straight leg raise negative bilaterally, pain with thoraco-lumbar ROM, paraspinal muscle tenderness bilaterally, thoraco-lumbar ROM limited, No thoracic spinal tenderness and lumbar spinal tenderness (L3-S1) Pelvis: buttock tenderness on the left Sacroiliac joints: bilaterally (left>right) tender to palpation Extrem General: Yes capillary refill normal, Yes no clubbing, cyanosis or edema and Yes no calf tenderness Right upper extremity: shoulder/upper arm (Pain with overhead and backside pocket reaches) Details: normal to inspection, tenderness Location: of the A-C joint and over the subacromial bursa and normal ROM; no swelling, no ecchymosis, no crepitus and no unusual warmth Results Reviewed Results Reviewed: XR HIP, LEFT CLINICAL INFORMATION: M25.552 - Pain in left hip COMPARISON: None available. TECHNIQUE: Two views of the left hip. FINDINGS: No fracture, dislocation, or suspicious bone lesion. There is normal alignment. There is early/mild degenerative change of the left hip joint with early subcapital and superolateral acetabular osteophytes. There is subtle amorphous calcification of the superolateral labrum. There is normal acetabular coverage. There is no soft tissue abnormality. IMPRESSION: 1. No acute bony abnormalities of the left hip. There is mild degenerative arthritis. Assessment & Plan Assessment & Plan (1) Fibromyalgia: Code(s): M79.7 - Fibromyalgia Category: Medical (2) Right shoulder pain: Code(s): M25.511 - Pain in right shoulder Category: Medical (3) Lumbosacral spondylosis: Code(s): M47.817 - Spondylosis without myelopathy or radiculopathy, lumbosacral region Category: Medical (4) Sacroiliac joint pain: Code(s): M53.3 - Sacrococcygeal disorders, not elsewhere classified Category: Medical (5) Left hip pain: Code(s): M25.552 - Pain in left hip Category: Medical (6) Morbid obesity with BMI of 45.0-49.9, adult: Code(s): E66.01 - Morbid (severe) obesity due to excess calories; Z68.42 - Body mass index [BMI] 45.0-49.9, adult Category: Medical Plan Sacroiliac joint pain was addressed with therapeutic left sacroiliac joint injection. Patient reported very good results see as above. She also complains on pain in the left groin. Most likely it is a pain from the left hip joint arthritis. See the description of the x-ray as above. Discussion see as above. The patient is interested in sacroiliac joint fusion. She was provided sacroiliac joint belt. She would need to have diagnostic sacroiliac joint injection for documentation in preparation for sacroiliac joint fusion. She she had physical therapy for sacroiliac joint pain. She is recommended low-impact aerobic exercise including swimming, stationary bicycle or elliptical machine. I will see this patient when her pain will come back. Patient Instructions: I here by testify that I spent 30 minutes in conversation with this patient as well as planning her care applying the sacroiliac joint belt explaining sacroiliac joint belt mechanics as well as ionizing this note. Coding Level of Care Code Est Pt Level 4 (77755) Diagnoses Fibromyalgia M79.7 Right shoulder pain M25.511 Lumbosacral spondylosis M47.817 Sacroiliac joint pain M53.3 Left hip pain M25.552 Morbid obesity with BMI of 45.0-49.9, adult E66.01; Z68.42
[2025-07-13 09:11] VITALS: BP 174/87; PULSE 79; RESP 16; O2SAT 99; BMI 46.2
== END 2025-07-13 09:30 | disposition home or self-care (01) ==
LOC: HO.PMC 09:09
PROVIDERS: PCP Pediatrics; Visit Provider Anesthesiology
DX: E66.01 Morbid (severe) obesity due to excess calories (principal); Z68.42 Body mass index [BMI] 45.0-49.9, adult; M79.7 Fibromyalgia; M25.511 Pain in right shoulder; M47.817 Spondylosis without myelopathy or radiculopathy, lumbosacral region; M53.3 Sacrococcygeal disorders, not elsewhere classified; M25.552 Pain in left hip
CPT/HCPCS: 99214

== ENCOUNTER 2025-07-15 10:04 | Outpatient (REF) | payer OTHER, SELFPAY ==
[2025-07-15 13:16] LABS: MANUAL DIFF FLAG NO
[2025-07-15 13:38] LABS: Hematocrit 41.2 % (37.0-47.0); Hemoglobin 13.4 g/dl (12.0-16.0); Imm Gran Abs Auto 0.05 X10*3/uL (0.00-0.03); Imm Gran Pct Auto 0.4 % (0.0-0.4); Lymphocytes Absolute Auto 2.2 X10*3/uL (1.2-4.9); Mean Corpuscular HGB Conc 32.5 g/dl (31.0-35.0); Mean Corpuscular Hemoglobin 29.5 pg (27.0-33.0); Mean Corpuscular Volume 90.5 fL (80.0-98.0); NRBC Abs Auto 0.000 X10*3/uL (0.0-0.012); NRBC Pct Auto 0.0 /100WBC (0.0-0.2); Platelet Count 381 X10*3/uL (160-400); Red Blood Count 4.55 X10*6/uL (4.20-5.50); White Blood Count 11.2 X10*3/uL (4.8-10.8)
[2025-07-15 14:02] LABS: Alanine Aminotransferase 25 U/L (0-31); Albumin Level 4.1 g/dL (3.5-5.0); Alkaline Phosphatase 79 U/L (39-117); Anion Gap 10 (12-20); Aspartate Amino Transferase 24 U/L (5-31); Blood Urea Nitrogen 9 mg/dL (9-16); Calcium 9.0 mg/dL (8.4-10.2); Carbon Dioxide 26 mmol/L (22-29); Chloride 108 mmol/L (96-108); Estimated Glomerular Filt Rate > 60; Potassium 3.8 mmol/L (3.3-5.1); Sodium 140 mmol/L (135-145); Total Protein 6.8 g/dL (6.5-8.0)
== END 2025-07-15 10:05 | disposition home or self-care (01) ==
LOC: HO.HMGCLDS 10:04
PROVIDERS: PCP Pediatrics; Visit Provider Student in an Organized Health Care Education/Training Program
DX: M06.09 Rheumatoid arthritis without rheumatoid factor, multiple sites (principal)
CPT/HCPCS: 36415; 80053; 85025; 85652; 86140

== ENCOUNTER 2025-07-20 10:03 | Outpatient (AMB) | payer OTHER, SELFPAY ==
--- NOTE | 2025-07-20 10:12 | A.OFFVIS_ITS ---
Vital Signs 07/20/25 10:16 Height 5 ft 7 in Weight 294 lb 15.656 oz BMI 46.2 BP 142/84 H Blood Pressure Location Lt brachial Position Sitting Pulse 85 Pulse Source Pulse Oximeter Pulse Oximetry (%) 98 Oxygen Delivery Method Room Air Intake Visit Reasons: follow up RA Intake Note: Patient presents for RA follow up. Allergies hydroxychloroquine Adverse Reaction (Intermediate, Verified 07/20/25 10:15) Palpitations sulfadiazine Adverse Reaction (Intermediate, Verified 07/20/25 10:15) Anaphylaxis HPI Comments Details: Patient is a 49-year-old female with depression, fibromyalgia and seronegative rheumatoid arthritis who presents today for follow up Interval History: Patient last seen 03/22/25 with me - On methotrexate 15mg PO weekly and folic acid, Humira bio similar 40mg SC every week - Able to start the humira bio similar - But similar issue with co pay - Did find this medication effective, last dose 4 weeks ago - Started on Simponi aria infusion Today - On methotrexate 15mg PO weekly and folic acid - Has not started infusion due to insurance issues - Still with prolonged AM stiffness - Having left leg pain after SI joint injection Rheumatologic History: Seroneg dx 06/30 (++CEP, +cabamylated P) Prednisone ineffective MTX 06/30 effective lowered from 20 to 15 mg 11/2023 d.t. transaminitis HCQ 02/2024 DC 03/2024 d.t. palpitations Started Enbrel 05/2024 but only for 1 month due to $1000 co pay (could not afford this) Changed to Humira but high co pay Current Rheumatology Medication(s): Methotrexate 15 mg p.o. weekly Folic acid 1 mg daily [facility] Medical History Encounter for monitoring of adalimumab therapy Encounter for methotrexate monitoring Cervical radiculopathy Thyroid nodule Severe obesity Hidradenitis suppurativa Obstructive sleep apnea PCOS (polycystic ovarian syndrome) Headache Dysphagia GERD (gastroesophageal reflux disease) Allergic rhinitis Surgical History H/O ventral hernia repair Hx of cholecystectomy Hx of section Hx of knee surgery Family History Mother Hyperlipidemia Hypertension Arthritis Father Hyperlipidemia Hypertension Leukemia Cancer of kidney Arthritis Paternal Grandfather Coronary artery disease Maternal Grandfather Type 2 diabetes mellitus Paternal Grandmother Breast cancer Colon cancer Paternal Aunt Breast cancer Social History Household Members: Significant Other and Children Alcohol intake: current Alcohol intake frequency: does not drink Patient Tobacco Use Status: Never used Tobacco Current occupational status: unemployed 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 Review of Systems Narrative Review of Systems Constitutional: Denies fever, chills, weight loss ENT: Denies vision changes, eye pain or eye redness, dental caries, dry mouth GI: Denies nausea, vomiting, diarrhea, abdominal pain, change in BM Pulm: Denies SOB, ROGERS, hemoptysis, wheezing Cards: Denies chest pain, palpitations Skin: Denies Raynaud's, rash, nail changes, photosensitivity, SHIRT BANDER: Denies headaches, weakness, paresthesias, recurrent falls MSK: as per HPI All other systems reviewed and are unremarkable except noted above Physical Exam Exam Exam: Vital signs reviewed Physical Examination CONSTITUITIONAL Patient alert and cooperative. Well appearing and in no apparent painful distress MSK Hands * Right Hand: Able to make a fist. No swelling. TTP PIP and MCPs 2nd - 5th * Left Hand: Able to make a fist. No swelling. TTP PIP and MCPs 2nd - 5th Wrists * Right Wrist: Full ROM to flexion and extension. No swelling or TTP * Left Wrist: Full ROM to flexion and extension. No swelling or TTP Elbows * Right Elbow: Full ROM. No swelling or TTP. No TTP of the medial epicondyle. No TTP of the lateral epicondyle * Left Elbow: Full ROM. No swelling or TTP. No TTP of the medial epicondyle. No TTP of the lateral epicondyle Shoulders * Right shoulder: No swelling noted. No TTP of the AC joint. No TTP of the subacromial bursa. No TTP of the posterior shoulder * Left shoulder: No swelling noted. No TTP of the AC joint. No TTP of the subacromial bursa. No TTP of the posterior shoulder Knees * Right knee: No swelling noted. No TTP of the knee joint line. No TTP of pes anserine bursa * Left knee: No swelling noted. No TTP of the knee joint line. No TTP of pes anserine bursa. * Crepitations felt bilaterally Ankles * Right ankle: Good ankle dorsiflexion and plantar flexion. No swelling. No TTP of the ankle joint * Left ankle: Good ankle dorsiflexion and plantar flexion. No swelling. No TTP of the ankle joint Feet * Right foot: Negative squeeze test * Left foot: Negative squeeze test Tender points? * No tenderness to palpation of the bilateral trapezius, supraspinatus, anterior costochondral junctions, bilateral suboccipital muscle insertions SKIN No rashes Vital Signs: Last Vital Signs Pulse 85 07/20/25 10:16 BP 142/84 H 07/20/25 10:16 Pulse Ox 98 07/20/25 10:16 Oxygen Delivery Method Room Air 07/20/25 10:16 BMI result Body Mass Index 46.2 Results Reviewed Results Reviewed: Laboratory Tests 03/19/25 07/15/25 08:03 10:08 WBC 11.2 H RBC 4.55 Hgb 13.4 Hct 41.2 Plt Count 381 ESR 14 Sodium 140 Potassium 3.8 Chloride 108 Carbon Dioxide 26 BUN 9 Creatinine 0.66 AST 24 ALT 25 C-Reactive Protein 0.41 0.96 H Laboratory Tests 10/20/24 09:24 Hepatitis A IgM Ab Nonreactive Hep Bs Antigen Negative Hep Bs Antibody NONREACTIVE Hep B Core Total Ab Nonreactive Hepatitis C Ab (EIA) Nonreactive TB Test (T-Spot) Com Negative Assessment & Plan Assessment & Plan (1) Rheumatoid arthritis: Comment: seroneg dx 06/30 (++CEP, +cabamylated P) Prednisone ineffective MTX 06/30 effective lowered from 20 to 15 mg 11/2023 d.t. transaminitis HCQ 02/2024 DC 03/2024 d.t. palpitations Code(s): M06.9 - Rheumatoid arthritis, unspecified Category: Medical Qualifiers: Rheumatoid arthritis location: multiple sites Rheumatoid factor presence: without rheumatoid factor Qualified Code(s): M06.09 - Rheumatoid arthritis without rheumatoid factor, multiple sites Plan: #Seronegative RA Patient is a 49-year-old female with seronegative rheumatoid arthritis. Still with synovitis on examination and moderate to severe rheumatoid arthritis disease activity. Unable to optimize methotrexate further due to transaminitis on higher doses. Unable to do Enbrel and Humira. We will need to switch to infusions. Having a very difficult time with her insurance. Trying to get approval for Simponi infusion Plan - Start simponi infusions 2mg/kg every weeks x 2 doses then every 8 weeks - Methotrexate 15mg weekly PO - Folic acid 1mg daily - RTC 4 months - Labs before visit: CBC, CMP, ESR, CRP (2) Encounter for methotrexate monitoring: Code(s): Z51.81 - Encounter for therapeutic drug level monitoring; Z79.631 - senior care (current) use of antimetabolite agent Category: Medical Plan: #Long-term Current Use of Methotrexate Discussed with patient the benefits and risks of methotrexate for managing their rheumatic condition Benefits include reduced pain, reduced mortality, maintenance of remission and reduction of flares Risks include oral ulcers, photosensitivity, hepatotoxicity, hematologic toxicity, pneumonitis, flu-like symptoms (especially day after administration), nodulosis, lymphomas ? Limit alcohol and avoid Bactrim ? Monitoring: ?CBC, BMP, LFTs every 3-4 months and hepatitis serologies as needed ? Methotrexate is teratogenic. ?If planning need to discontinue 3 months prior to conception (3) Encounter for monitoring of adalimumab therapy: Code(s): Z51.81 - Encounter for therapeutic drug level monitoring; Z79.620 - senior care (current) use of immunosuppressive biologic Category: Medical Plan: #Long-term Use of TNF Inhibitors: Simponi Discussed with the patient the benefits and risks of TNF inhibitors for the management of the rheumatic condition Benefits include reduce pain, maintenance of remission and reduction of flares as well as ?progression of the disease Risks include injection sites/infusion reactions, serious infections (such as bacterial infections, opportunistic infections), malignancy, delaminating syndromes, autoimmune phenomena, CHF exacerbations, palmar plantar psoriasis and cytopenias Recommended rotating injection sites, and holding medication during and for up to 1 week after resolution of a febrile illness or open skin wound Plan I spent 45 minutes reviewing the record and labs, taking a history, examining the patient, discussing the treatment plan, speaking with insurance company about the drug approval and documenting in the medical record Coding Level of Care Code Est Pt Level 5 (41728) Complex EM visit Add On G2211 Diagnoses Rheumatoid arthritis of multiple sites with negative rheumatoid factor M06.09 Rheumatoid arthritis location: multiple sites Rheumatoid factor presence: without rheumatoid factor Encounter for methotrexate monitoring Z51.81; Z79.631 Encounter for monitoring of adalimumab therapy Z51.81; Z79.620
[2025-07-20 10:16] VITALS: BP 142/84; PULSE 85; O2SAT 98; BMI 46.2
== END 2025-07-20 10:40 | disposition home or self-care (01) ==
LOC: HO.RHES 10:04
PROVIDERS: PCP Pediatrics; Visit Provider Student in an Organized Health Care Education/Training Program
DX: M06.09 Rheumatoid arthritis without rheumatoid factor, multiple sites (principal); Z51.81 Encounter for therapeutic drug level monitoring; Z79.631 Long term (current) use of antimetabolite agent; Z79.620 Long term (current) use of immunosuppressive biologic
CPT/HCPCS: 99215

== ENCOUNTER 2025-07-21 14:59 | Outpatient (AMB) | payer OTHER, SELFPAY ==
--- NOTE | 2025-07-21 15:01 | A.OFFVIS_ITS ---
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 She was recently seen by Dr. Brown and received a left therapeutic sacroiliac joint injection in June, which provided significant pain relief of left lower back and left buttock pain. However, she continues to experience left hip pain radiating to her left groin. The patient reports that the pain in her left hip and groin started two days after the sacroiliac joint injection, coinciding with the numbness wearing off. She describes the pain as sharp and throbbing, exacerbated by movements such as getting out of car, bed or getting up from chair, laying on her left side and weight-bearing activities. She has been using an SI joint belt and has discussed the possibility of neurostimulation and SI joint fusion for chronic sacroiliac joint pain. The patient has a history of mild arthritis and mild calcification around the labrum. She also has mild disc degeneration at L2-L3, but no spinal stenosis or bulging disc was noted. She continues to take gabapentin for pain management. - Onset: Pain began two days after sacroiliac joint injection. - Quality: Sharp, aching, shooting and throbbing pain. - Location: Left hip radiating to the left groin. - Radiation: Pain extends down the leg. - Exacerbating factors: Movement and weight-bearing activities. - Relieving factors: Use of SI joint belt. - Interference: Affects ability to sleep on the left side and causes difficulty with getting in and out of the car. - Affect: Pain has caused emotional distress, leading to tears. - Analgesia: Currently using gabapentin; previous sacroiliac joint injection p rovided temporary relief. - Adverse Effects: None reported from current medications. - Activities of Daily Living: Pain interferes with sleep and mobility, particularly getting in and out of the car. - Aberrant Drug Related Behaviors: None reported. PRIOR Dr. Brown 07/14/25: Nadine is very pleasant 49 years old female who presents in my office 1 month after therapeutic left sacroiliac joint injection. She reported that pain in her sacroiliac joint before the injection was 8/10. She reported today mostly absence of pain in the sacroiliac joint. From time to time she feels sacroiliac joint pain mostly 1/10 or 2/10 with physical exertion. She is interested in sacroiliac joint fusion. She also complains on pain in the left groin. This mostly related to the coexisting hip joint arthritis which is demonstrated on the patient's left hip x-ray, see the report below. We discussed possibility of treatment of this patient's pain with continuous sacroiliac joint injections. We also discussed possibility of treatment of her pain with sacroiliac joint fusion Nevaminta. Patient was provided with the sacroiliac joint belt to wear. I also would recommend her low impact aerobic exercise such as swimming, stationary bicycle or elliptical machine. We agreed that she will schedule appointment with me after her pain will start to come back. [facility] Medical History Encounter for monitoring of adalimumab therapy Encounter for methotrexate monitoring Cervical radiculopathy Thyroid nodule Severe obesity Hidradenitis suppurativa Obstructive sleep apnea PCOS (polycystic ovarian syndrome) Headache Dysphagia GERD (gastroesophageal reflux disease) Allergic rhinitis Surgical History H/O ventral hernia repair Hx of cholecystectomy Hx of section Hx of knee surgery Family History Mother Hyperlipidemia Hypertension Arthritis Father Hyperlipidemia Hypertension Leukemia Cancer of kidney Arthritis Paternal Grandfather Coronary artery disease Maternal Grandfather Type 2 diabetes mellitus Paternal Grandmother Breast cancer Colon cancer Paternal Aunt Breast cancer Social History Household Members: Significant Other and Children Alcohol intake: current Alcohol intake frequency: does not drink Patient Tobacco Use Status: Never used Tobacco Current occupational status: unemployed 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 Denies right side symptoms. - Neurological: Reports sharp, throbbing pain. Denies numbness or tingling. - General: Reports difficulty sleeping due to pain. All systems reviewed & are unremarkable except as noted in HPI and below Physical Exam Vital Signs: Last Vital Signs Pulse 92 07/21/25 15:04 BP 176/94 H 07/21/25 15:04 Pulse Ox 100 07/21/25 15:04 Oxygen Delivery Method Room Air 07/21/25 15:04 BMI result Body Mass Index 46.0 General: Appears afebrile. Alert and oriented x3. Mood and affect appropriate. Follows and participates in conversation appropriately. Respiratory effort is unlabored. No cough. Able to transition from sit to stand unassisted. Ambulates with bilaterally normal heel strike and toe off. Back/Spine/Pelvis Other: Limited lumbar ROM due to pain. Lumbar extension, flexion forward and extension reproduces mild pain. Demonstrates 5/5 right and 4/5 left due to pain strength of quadriceps bilaterally as well as flexion/dorsiflexion of bilateral feet against resistance. 2+ pedal pulses bilaterally. Diminished patellar and achilles reflexes bilaterally. Facet loading test positive bilaterally. Watson sign, Yusuf?s and Stinchfield tests are positive bilaterally, mild pain. Moderate left groin pain with left I/E hip rotations. +FADIR. Valsalva maneuver negative. Cervical Spine: cervical ROM normal and No Cervical spine tenderness Thoracic/Lumbar Spine: thoracic and lumbar spine normal to inspection, No Thoracic/lumbar spine scar(s), Lasegue's sign negative, straight leg raise negative bilaterally, thoraco-lumbar ROM limited, No thoracic spinal tenderness and lumbar spinal tenderness (L3-S1) Pelvis: no buttock tenderness Sacroiliac joints: bilaterally tender to palpation (mild) Extrem General: Yes capillary refill normal, Yes no clubbing, cyanosis or edema and Yes no calf tenderness Results Reviewed Results Reviewed: XR HIP, LEFT 03/25/25 CLINICAL INFORMATION: M25.552 - Pain in left hip COMPARISON: None available. TECHNIQUE: Two views of the left hip. FINDINGS: No fracture, dislocation, or suspicious bone lesion. There is normal alignment. There is early/mild degenerative change of the left hip joint with early subcapital and superolateral acetabular osteophytes. There is subtle amorphous calcification of the superolateral labrum. There is normal acetabular coverage. There is no soft tissue abnormality. IMPRESSION: 1. No acute bony abnormalities of the left hip. There is mild degenerative arthritis. MR SPINE LUMBAR without CONTRAST at [facility] 02/09/24 INDICATION: Other congenital malformations of spine, not associated with scoliosis. Other intervertebral disc degeneration, lumbar region. Radiculopathy, lumbar region. Vertebrogenic low back pain. TECHNIQUE: Unenhanced multiplanar, multisequence MR imaging of the lumbar spine. COMPARISON: Not available. FINDINGS: Normal lumbar alignment is demonstrated. Vertebral heights are well maintained. There are multiple ovoid lesions which are seen in several lower thoracic and lumbar vertebral bodies, which have slight increased signal intensity on T1-weighting, moderately increased signal intensity in T2 weighting and have slight increased signal intensity on the STIR sequence, typical for benign vertebral body hemangiomas: One lesion is seen to the right of midline in the T9 vertebral body measuring 0.6 cm dimension. Another lesion is seen to left of midline in the T9 vertebral body measuring 0.5 cm in dimension. One lesion is seen in the T10 vertebral body to the left midline measuring 1 cm in dimension. A lesion is seen to the right of midline in the T11 vertebral body measuring 0.6 cm in dimension. Another lesion is seen in the T11 vertebral body to the left of midline measuring 0.3 cm in dimension. A lesion is seen to the right of midline in the T12 vertebral body measuring 0.6 cm in dimension. Another lesion is seen to the left of midline in the T12 vertebral body measuring 1.9 cm in dimension A lesion is seen to the right of midline in the L1 vertebral body measuring 0.4 cm in dimension. Another lesion is seen in the L2 vertebral body which appears to occupy almost the entire vertebral body except for small unaffected ovoid areas which have decreased signal intensity on T1 and T2 imaging, and slight increased signal intensity on the STIR sequence Conus medullaris is unremarkable. Paraspinal soft tissues and visualized portions of the abdomen and pelvis are unremarkable. At L1-2 there is no significant disc herniation or protrusion. No central canal or neural foraminal stenosis is demonstrated. At L2-3 there is no significant disc herniation or protrusion. There is slight decreased signal intensity in the L2-3 disc on the fluid sensitive sequences, however, which could be due to disc desiccation. No central canal or neural foraminal stenosis is demonstrated. At L3-4 there is no significant disc herniation or protrusion. No central canal or neural foraminal stenosis is demonstrated. At L4-5 there is no significant disc herniation or protrusion. No central canal or neural foraminal stenosis is demonstrated. At L5-S1 there is no significant disc herniation or protrusion. No central canal or neural foraminal stenosis is demonstrated. 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 These are not likely due to other neoplastic lesions. 2.There is, however, an underlying lesion in the L2 vertebral body which appears to occupy almost the entire vertebral body, (which is increased on T1 and T2 weighting and intermediate in signal intensity on the STIR sequence) with a central area which has an atypical signal intensity on the images, being decreased on T1 and T2 weighting and slightly increased on the STIR sequence, which would be either due to atypical hemangioma, or possibly represent an area of other primary or secondary neoplastic disease. 3.MRI of the thoracic and lumbar spine is therefore suggested without and with gadolinium contrast for further evaluation. 4.There is mild disc desiccation at L2-3. 5.The lumbar intervertebral discs are otherwise normal in height, and show no evidence for diffuse disc bulges or disc protrusions, and there is no evidence for neuroforaminal stenosis or central spinal canal stenosis of the lumbar spine. 6.The lower visualized spinal cord and cauda equina region otherwise appear normal. XR SACROILIAC JOINTS 12/01/23 FINDINGS: Bones and soft tissues are normal. No fracture. Alignment is anatomic. Sacroiliac joint spaces are well-maintained without erosions or surrounding sclerosis. There is sacralization of the L5 left transverse process. IMPRESSION: 1. Normal sacroiliac joints. 2. There is sacralization of the L5 left transverse process. XR LUMBOSACRAL SPINE WITH OBLIQUES 12/01/23 CLINICAL INFORMATION: Lumbar radiculopathy. FINDINGS: Vertebral body heights and alignment are normal. The lower thoracic and lumbar disc spaces are well-maintained. No acute fracture or spondylolisthesis is seen. There is multi-level lower thoracic and lumbar endplate arthropathy. The posterior elements are intact. There is facet arthropathy at L5-S1. The paravertebral soft tissues are unremarkable. Herniorrhaphy mesh is seen. There are right upper quadrant surgical clips. IMPRESSION: 1. No acute fracture or spondylolisthesis is seen. 2. The lower thoracic and lumbar disc spaces are well-maintained. 3. There is multi-level lower thoracic and lumbar degenerative facet arthropathy. 4. There is facet arthropathy at L5-S1. XR shoulder RT min 2V 10- RIGHT SHOULDER: There is no evidence of acute fracture or dislocation of the right shoulder. No calcific tendinitis. Glenohumeral joint appears unremarkable. No widening of the coracoclavicular space. There is mild spurring about the acromioclavicular joint. Assessment & Plan Assessment & Plan (1) Left hip pain: Code(s): M25.552 - Pain in left hip Category: Medical (2) Left groin pain: Code(s): R10.32 - Left lower quadrant pain Category: Medical (3) Lumbosacral spondylosis: Code(s): M47.817 - Spondylosis without myelopathy or radiculopathy, lumbosacral region Category: Medical (4) Lumbar degenerative disc disease: Code(s): M51.36 - Other intervertebral disc degeneration, lumbar region Category: Medical (5) Sacroiliac joint pain: Code(s): M53.3 - Sacrococcygeal disorders, not elsewhere classified Category: Medical (6) Fibromyalgia: Code(s): M79.7 - Fibromyalgia Category: Medical Plan The plan includes obtaining an MRI of the hip to further evaluate the new onset of pain and to assess for potential labral tear, impingement or tendinitis. If a partial labral tear is identified, physical therapy will be initiated as initial steps. We also discussed therapeutic intra-articular steroid injections. The patient will continue using gabapentin for pain management and will be monitored for any changes in symptoms. Follow-up will be arranged after the MRI results are available to discuss further management options. Patient was informed and verbally consented to the use of an ambient scribe for clinic note documentation during this visit. Orders: Orders MR hip LT wo con Today F40.240 - Claustrophobia, M25.552 - Pain in left hip, R10.32 - Left lower quadrant pain Coding Level of Care Code Est Pt Level 4 (89274) Complex EM visit Add On G2211 Diagnoses Left hip pain M25.552 Left groin pain R10.32 Lumbosacral spondylosis M47.817 Lumbar degenerative disc disease M51.36 Sacroiliac joint pain M53.3 Fibromyalgia M79.7
[2025-07-21 15:04] VITALS: BP 176/94; PULSE 92; O2SAT 100; BMI 46.0
== END 2025-07-21 15:56 | disposition home or self-care (01) ==
LOC: HO.PMC 15:00
PROVIDERS: PCP Pediatrics; Visit Provider Nurse Practitioner Family
DX: M25.552 Pain in left hip (principal); R10.32 Left lower quadrant pain; M47.817 Spondylosis without myelopathy or radiculopathy, lumbosacral region; M51.369 Other intervertebral disc degeneration, lumbar region without mention of lumbar back pain or lower extremity pain; M53.3 Sacrococcygeal disorders, not elsewhere classified; M79.7 Fibromyalgia
CPT/HCPCS: 99214

== ENCOUNTER 2025-09-06 08:48 | Outpatient (AMB) | payer OTHER, SELFPAY ==
--- NOTE | 2025-09-06 08:49 | MHC.OFFVIS ---
Vital Signs 09/06/25 08:52 Height 5 ft 7 in Weight 280 lb BMI 43.8 BP 174/103 H Blood Pressure Location Lt brachial Position Sitting Pulse 98 Pulse Source Pulse Oximeter Pulse Oximetry (%) 100 Oxygen Delivery Method Room Air Intake Visit Reasons: MRI follow up Intake Note: Pain today 03/17 Toe Stripper Required: No Accompanied by: Self / Same As Patient Allergies hydroxychloroquine Adverse Reaction (Intermediate, Verified 09/06/25 08:53) Palpitations sulfadiazine Adverse Reaction (Intermediate, Verified 09/06/25 08:53) Anaphylaxis HPI Comments Details: The patient is a 49 year old female presenting for evaluation of left hip pain and review of her hip MRI results. She reports pain in the left groin, outer hip, and deep buttock. The pain is described as throbbing and aching, and is most prominent when standing or walking. The patient states that the pain is now constant, even at rest, and she can no longer find a comfortable position, which forces her to constantly move her leg. She also describes a sensation of her hip coming out of the socket when standing or walking. She has tried ibuprofen without relief and also attempted stretches provided by a physical therapist friend, which she reports caused agony and worsened the pain. Past medical history includes taking methotrexate once a week, duloxetine, gabapentin, Ibuprofen and tizanidine as needed. She denies a history of diabetes. Previous X-ray imaging revealed mild arthritis. Pain Description - Location: The patient reports pain in the left hip, specifically affecting the groin, outer hip, and deep buttock. - Quality: The pain is described as throbbing and aching, and at times she feels like her hip is coming out of the socket. - Timing: The pain is present most of the time and has progressed to being constant, even at rest. - Exacerbating Factors: Pain is worse with standing and walking. - Relieving Factors: Previously, she could find a comfortable position while lying down, but this is no longer effective. - Associated Symptoms: She reports a constant need to move her leg to try and find a comfortable position. Pain Management - Analgesia: The patient currently uses ibuprofen, which she reports does not help her pain. - She also takes duloxetine, gabapentin, and tizanidine as needed. - Pain level can reach 10/10. - Activities of Daily Living: Pain interferes with standing, walking, and her ability to find a comfortable position, even at rest. - Adverse Effects: She experienced significantly worse pain after attempting stretches and exercises for a few days. - Aberrant Drug Related Behaviors: The patient agrees with avoiding opioid medications. Past Procedures: 02/03/24: Bilateral Diagnostic L3-L4-DR-L5 MBB-0% pain relief PFSH Medical History Encounter for monitoring of adalimumab therapy Encounter for methotrexate monitoring Cervical radiculopathy Thyroid nodule Severe obesity Hidradenitis suppurativa Obstructive sleep apnea PCOS (polycystic ovarian syndrome) Headache Dysphagia GERD (gastroesophageal reflux disease) Allergic rhinitis Surgical History H/O ventral hernia repair Hx of cholecystectomy Hx of section Hx of knee surgery Family History Mother Hyperlipidemia Hypertension Arthritis Father Hyperlipidemia Hypertension Leukemia Cancer of kidney Arthritis Paternal Grandfather Coronary artery disease Maternal Grandfather Type 2 diabetes mellitus Paternal Grandmother Breast cancer Colon cancer Paternal Aunt Breast cancer Social History Household Members: Significant Other and Children Alcohol intake: current Alcohol intake frequency: does not drink Patient Tobacco Use Status: Never used Tobacco Current occupational status: unemployed 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 - She also reports a sensation of the hip coming out of its socket. Const All systems reviewed & are unremarkable except as noted in HPI and below Physical Exam Exam Exam: Vital Signs: Last Vital Signs Pulse 98 09/06/25 08:52 BP 174/103 H 09/06/25 08:52 Pulse Ox 100 09/06/25 08:52 Oxygen Delivery Method Room Air 09/06/25 08:52 BMI result Body Mass Index 43.8 General: Appears afebrile. Alert and oriented x3. Mood and affect appropriate. Follows and participates in conversation appropriately. Respiratory effort is unlabored. No cough. Able to transition from sit to stand unassisted. Uses cane with ambulation. Ambulates with bilaterally normal heel strike and toe off. Back/Spine/Pelvis Other: Limited lumbar ROM due to pain. Lumbar extension, flexion forward and extension reproduces mild pain. Demonstrates 5/5 right and 4/5 left due to pain strength of quadriceps bilaterally as well as flexion/dorsiflexion of bilateral feet against resistance. 2+ pedal pulses bilaterally. Diminished patellar and achilles reflexes bilaterally. Facet loading test positive bilaterally. Watson sign, Yusuf?s and Stinchfield tests are positive bilaterally, mild pain. Moderate left groin pain with left I/E hip rotations. +FADIR on the left. Valsalva maneuver negative. Cervical Spine: cervical ROM normal, cervical muscular tenderness and No Cervical spine tenderness Thoracic/Lumbar Spine: thoracic and lumbar spine normal to inspection, No Thoracic/lumbar spine scar(s), Lasegue's sign negative, straight leg raise negative bilaterally, thoraco-lumbar ROM limited, No thoracic spinal tenderness and lumbar spinal tenderness (L3-S1) Pelvis: no buttock tenderness Sacroiliac joints: bilaterally tender to palpation (mild) Extrem General: Yes capillary refill normal, Yes no clubbing, cyanosis or edema and Yes no calf tenderness Results Reviewed Results Reviewed: XR HIP, LEFT 03/25/25 CLINICAL INFORMATION: M25.552 - Pain in left hip COMPARISON: None available. TECHNIQUE: Two views of the left hip. FINDINGS: No fracture, dislocation, or suspicious bone lesion. There is normal alignment. There is early/mild degenerative change of the left hip joint with early subcapital and superolateral acetabular osteophytes. There is subtle amorphous calcification of the superolateral labrum. There is normal acetabular coverage. There is no soft tissue abnormality. IMPRESSION: 1. No acute bony abnormalities of the left hip. There is mild degenerative arthritis. MR SPINE LUMBAR without CONTRAST at [facility] 02/09/24 INDICATION: Other congenital malformations of spine, not associated with scoliosis. Other intervertebral disc degeneration, lumbar region. Radiculopathy, lumbar region. Vertebrogenic low back pain. TECHNIQUE: Unenhanced multiplanar, multisequence MR imaging of the lumbar spine. COMPARISON: Not available. FINDINGS: Normal lumbar alignment is demonstrated. Vertebral heights are well maintained. There are multiple ovoid lesions which are seen in several lower thoracic and lumbar vertebral bodies, which have slight increased signal intensity on T1-weighting, moderately increased signal intensity in T2 weighting and have slight increased signal intensity on the STIR sequence, typical for benign vertebral body hemangiomas: One lesion is seen to the right of midline in the T9 vertebral body measuring 0.6 cm dimension. Another lesion is seen to left of midline in the T9 vertebral body measuring 0.5 cm in dimension. One lesion is seen in the T10 vertebral body to the left midline measuring 1 cm in dimension. A lesion is seen to the right of midline in the T11 vertebral body measuring 0.6 cm in dimension. Another lesion is seen in the T11 vertebral body to the left of midline measuring 0.3 cm in dimension. A lesion is seen to the right of midline in the T12 vertebral body measuring 0.6 cm in dimension. Another lesion is seen to the left of midline in the T12 vertebral body measuring 1.9 cm in dimension A lesion is seen to the right of midline in the L1 vertebral body measuring 0.4 cm in dimension. Another lesion is seen in the L2 vertebral body which appears to occupy almost the entire vertebral body except for small unaffected ovoid areas which have decreased signal intensity on T1 and T2 imaging, and slight increased signal intensity on the STIR sequence Conus medullaris is unremarkable. Paraspinal soft tissues and visualized portions of the abdomen and pelvis are unremarkable. At L1-2 there is no significant disc herniation or protrusion. No central canal or neural foraminal stenosis is demonstrated. At L2-3 there is no significant disc herniation or protrusion. There is slight decreased signal intensity in the L2-3 disc on the fluid sensitive sequences, however, which could be due to disc desiccation. No central canal or neural foraminal stenosis is demonstrated. At L3-4 there is no significant disc herniation or protrusion. No central canal or neural foraminal stenosis is demonstrated. At L4-5 there is no significant disc herniation or protrusion. No central canal or neural foraminal stenosis is demonstrated. At L5-S1 there is no significant disc herniation or protrusion. No central canal or neural foraminal stenosis is demonstrated. 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 These are not likely due to other neoplastic lesions. 2.There is, however, an underlying lesion in the L2 vertebral body which appears to occupy almost the entire vertebral body, (which is increased on T1 and T2 weighting and intermediate in signal intensity on the STIR sequence) with a central area which has an atypical signal intensity on the images, being decreased on T1 and T2 weighting and slightly increased on the STIR sequence, which would be either due to atypical hemangioma, or possibly represent an area of other primary or secondary neoplastic disease. 3.MRI of the thoracic and lumbar spine is therefore suggested without and with gadolinium contrast for further evaluation. 4.There is mild disc desiccation at L2-3. 5.The lumbar intervertebral discs are otherwise normal in height, and show no evidence for diffuse disc bulges or disc protrusions, and there is no evidence for neuroforaminal stenosis or central spinal canal stenosis of the lumbar spine. 6.The lower visualized spinal cord and cauda equina region otherwise appear normal. XR SACROILIAC JOINTS 12/01/23 FINDINGS: Bones and soft tissues are normal. No fracture. Alignment is anatomic. Sacroiliac joint spaces are well-maintained without erosions or surrounding sclerosis. There is sacralization of the L5 left transverse process. IMPRESSION: 1. Normal sacroiliac joints. 2. There is sacralization of the L5 left transverse process. XR LUMBOSACRAL SPINE WITH OBLIQUES 12/01/23 CLINICAL INFORMATION: Lumbar radiculopathy. FINDINGS: Vertebral body heights and alignment are normal. The lower thoracic and lumbar disc spaces are well-maintained. No acute fracture or spondylolisthesis is seen. There is multi-level lower thoracic and lumbar endplate arthropathy. The posterior elements are intact. There is facet arthropathy at L5-S1. The paravertebral soft tissues are unremarkable. Herniorrhaphy mesh is seen. There are right upper quadrant surgical clips. IMPRESSION: 1. No acute fracture or spondylolisthesis is seen. 2. The lower thoracic and lumbar disc spaces are well-maintained. 3. There is multi-level lower thoracic and lumbar degenerative facet arthropathy. 4. There is facet arthropathy at L5-S1. XR shoulder RT min 2V - RIGHT SHOULDER: There is no evidence of acute fracture or dislocation of the right shoulder. No calcific tendinitis. Glenohumeral joint appears unremarkable. No widening of the coracoclavicular space. There is mild spurring about the acromioclavicular joint. MR HIP WITHOUT CONTRAST UNILATERAL LEFT 08/23/25 [facility] INDICATION: Pain. No prior surgery. Numbness and burning. Fibromyalgia. COMPARISON: None. TECHNIQUE: Left hip MRI was performed without contrast and 7 diagnostic sequences were obtained. FINDINGS: The hip joint is congruent. No joint effusion. Femoral head and acetabular cartilage is intact. No labral detachment. Superolateral labrum exhibits articular sided fraying with intermediate PD fat sat signal (coronal PD fat-sat image 13). No associated cyst. Iliopsoas muscle and tendon are normal. Rectus femoris muscle and tendon are normal. Hip abductor tendons are intact. No fluid in the greater trochanteric bursa. Gluteus minimus and medius muscle bulk is preserved. The gluteus minimus muscle exhibits marked hyperintense PD fat sat edema, compatible with strain (axial PD fat-sat image 3; coronal PD fat-sat image 10). No muscle tear or associated hematoma. Hamstring muscles and tendons are intact. Sciatic nerve and femoral neurovascular bundle are normal. No acute intraperitoneal abnormality. Imaged portion of the contralateral hip is without acute abnormality. Bone signal is normal. No soft tissue collection. IMPRESSION: 1. Gluteus minimus muscle strain. 2. Superolateral labral fraying without detachment or associated chondrosis. Assessment & Plan Assessment & Plan (1) Left hip pain: Code(s): M25.552 - Pain in left hip Category: Medical (2) Left groin pain: Code(s): R10.32 - Left lower quadrant pain Category: Medical (3) Left hip impingement syndrome: Code(s): M25.852 - Other specified joint disorders, left hip Category: Medical (4) Lumbosacral spondylosis: Code(s): M47.817 - Spondylosis without myelopathy or radiculopathy, lumbosacral region Category: Medical (5) Morbid obesity with BMI of 45.0-49.9, adult: Code(s): E66.01 - Morbid (severe) obesity due to excess calories; Z68.42 - Body mass index [BMI] 45.0-49.9, adult Category: Medical (6) Fibromyalgia: Code(s): M79.7 - Fibromyalgia Category: Medical (7) Osteoarthritis of left hip: Code(s): M16.12 - Unilateral primary osteoarthritis, left hip Category: Medical Plan The patient's left hip pain is consistent with MRI findings and hip exam. A left hip intra-articular steroid injection will be scheduled under fluoroscopy guidance to manage ongoing left hip pain. Expectations, risks and benefits were reviewed. Patient is aware she will be contacted to schedule this procedure. For pain management, ibuprofen will be discontinued as it is ineffective. A prescription for meloxicam will be sent to her pharmacy. The patient was instructed to take meloxicam only as needed for severe pain (7-10/10) and not daily due to a potential interaction with her methotrexate. She was advised to take it with food and water and to avoid other NSAIDs. The patient is advised to delay physical therapy for at least one to two weeks after the injection to avoid increased pain. Following that period, she should pursue guided physical therapy to specifically address the hip by strengthening muscles and prevent further cartilage damage. We also reviewed importance of activity modifications and weight optimization to prevent overuse and avoid labral tear. All questions and concerns have been answered and patient agreed with the treatment plan. Follow up after injection and sooner as needed. Patient was informed and verbally consented to the use of an ambient scribe for clinic note documentation during this visit. Medications: New meloxicam Take it with food and full glass of water. Avoid other NSAIDs. 15 mg PO DAILY PRN 30 tabs 0RF pain (scale score 7-10) 30 days M25.552 - Pain in left hip, R10.32 - Left lower quadrant pain Coding Level of Care Code Est Pt Level 4 (24948) Add On Problem Visit Only Diagnoses Left hip pain M25.552 Left groin pain R10.32 Left hip impingement syndrome M25.852 Lumbosacral spondylosis M47.817 Morbid obesity with BMI of 45.0-49.9, adult E66.01; Z68.42 Fibromyalgia M79.7 Osteoarthritis of left hip M16.12
[2025-09-06 08:52] VITALS: BP 174/103; PULSE 98; O2SAT 100; BMI 43.8
== END 2025-09-06 09:11 | disposition home or self-care (01) ==
LOC: HO.PMC 08:48
PROVIDERS: PCP Pediatrics; Visit Provider Nurse Practitioner Family
DX: M25.552 Pain in left hip (principal); R10.32 Left lower quadrant pain; M25.852 Other specified joint disorders, left hip; M47.817 Spondylosis without myelopathy or radiculopathy, lumbosacral region; E66.01 Morbid (severe) obesity due to excess calories; Z68.42 Body mass index [BMI] 45.0-49.9, adult; M79.7 Fibromyalgia; M16.12 Unilateral primary osteoarthritis, left hip
CPT/HCPCS: 99214